=== PATIENT | female | born 1960 | race Caucasian/White ===

== ENCOUNTER → 2017-04-16 | Outpatient (CLI) | payer BC ==
--- NOTE | 2017-04-17 09:47 | MR ---
EXAMINATION TYPE: MR knee RT wo con DATE OF EXAM: 04/16/2017 6:23 PM COMPARISON: NONE HISTORY: Right Knee pain with swelling and some locking for approx 4 months TECHNIQUE: Multiplanar MultiSpin echo imaging of the right knee was performed. The graft FINDINGS: MEDIAL MENISCUS: There is oblique tear involving the posterior horn of the medial meniscus. Anterior horn appears to be intact. LATERAL MENISCUS: Anterior and posterior horns are intact without tear. CRUCIATE LIGAMENTS: The anterior and posterior cruciate ligaments are intact and unremarkable. COLLATERAL LIGAMENTS: The medial collateral ligament and lateral collateral ligament complex are intact and unremarkable. EXTENSOR MECHANISM: Visualized quadriceps and patellar tendons are intact. EFFUSION: No evidence for joint effusion. POPLITEAL CYST: No popliteal/jeter cyst. TRICOMPARTMENT SPACES: There is mild to moderate degenerative narrowing of the medial tibiofemoral marcell int space. There is a intercondylar spur formation seen as well as spurring about the margins of the femoral condyles and tibial plateau. Mild patellofemoral joint space narrowing. CARTILAGE: The articular cartilage is maintained without abnormal signal or full-thickness defect. BONE MARROW SIGNAL: No focal abnormal marrow signal is appreciated: OTHER: No additional significant abnormality is appreciated. IMPRESSION: 1. Posterior horn medial meniscal tear. 2. Changes of osteoarthritis.
== END | disposition home or self-care (01) ==
LOC: RADMRIMAIN 17:23
PROVIDERS: ATTEND Family Medicine
DX: S83.241A Other tear of medial meniscus, current injury, right knee, initial encounter (principal); M17.11 Unilateral primary osteoarthritis, right knee

== ENCOUNTER 2017-06-04 07:18 | Day surgery (SDC) | payer BC ==
[2017-05-28 08:53] VITALS: BMI 53.2
--- NOTE | 2017-06-03 11:44 | HP ---
CHIEF COMPLAINT: Right knee pain. 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 She is having medial pain that is worse with weightbearing activities. She notes intermittent locking and giving way. She has been taking antiinflammatories with minimal relief. PAST MEDICAL HISTORY: Significant for asthma and reflux disease along with hypertension. MEDICATIONS: Current medications: 1. Hydrochlorothiazide. 2. Prilosec. 3. Singulair. 4. Celebrex. She denies drug allergies. Surgical history is significant for previous wrist surgery and Caesarean section. Family history is significant for cancer. Social history is negative for current tobacco or alcohol use. 16 point review of systems is otherwise reviewed and is noncontributory. On examination, the patient is approximately 5 foot 5 inches, 320 pounds of endomorphic habitus. HEENT: Nonfocal. NECK: Supple. She has painless passive motion of her right hip. Straight leg raise is negative. On examination of her right knee, she has mild effusion. She is tender about the medial joint line. Active motion -6 to 100 degrees of flexion. Collaterals are stable. Rad's negative. Columba's elicits medial pain. She has genu valgum alignment. Her distal neurovascular exam appears to be intact in the right lower extremity. X-rays of the right knee obtained in the office to include weightbearing notch, lateral and merchant views show moderate lateral and patellofemoral compartment narrowing. MRI report from 04/16/2017 of the right knee shows a posterior horn medial meniscal tear. IMPRESSION: 1. Right knee internal derangement with symptomatic medial meniscal tear. 2. Right knee moderate lateral and patellofemoral compartment osteoarthrosis. 3. Increased body mass index. RECOMMENDATIONS: I talked to the patient at length regarding her treatment options. At this point, she is having significant pain and mechanical symptoms that will limit her normal function and activities. After thorough discussion, she opts to proceed with surgery. We will plan to proceed with arthroscopic evaluation with probable partial medial meniscectomy. Risks and benefits were discussed at length in layman's terms. We will likely perform that as an outpatient procedure. BRAD
[~2017-06-04 07:18] MED LIST: DEXAMETHASONE SOD PHOSPHATE 10 MG/ML 1 ML VIAL IV ONE; LACTATED RINGERS 1,000 ML IV SCH; ceFAZolin 3 GM in SODIUM CHLORIDE 0.9% 100 ML IVPB ONE
[2017-06-04] MEDS ORDERED: LIDOCAINE 1% 20 ML VIAL (10MG/ML) FOR IV START INTRADERMA ONE (08:00)
[2017-06-04] MEDS: ONDANSETRON 4 MG/2 ML VIAL IVP ONE ×2 (08:01→10:56)
[2017-06-04] MEDS ORDERED: SCOPOLAMINE 1.5MG/72HR PATCH TRANSDERM ONE (08:07)
[2017-06-04] MEDS ORDERED: PROPOFOL 10 MG/ML 20 ML VIAL IV ONE (08:59)
[2017-06-04] MEDS ORDERED: LIDOCAINE 1% INJ 10MG/ML (20 ML MDV) ONE (08:59)
[2017-06-04] MEDS ORDERED: fentaNYL (PF) 50 MCG/ML 2 ML AMP ONE (08:59)
[2017-06-04] MEDS ORDERED: SUCCINYLCHOLINE CHLORIDE VIAL 200 MG/10 ML VIAL IV ONE (08:59)
[2017-06-04] MEDS ORDERED: MIDAZOLAM 2 MG/2 ML VIAL ONE (08:59)
[2017-06-04] MEDS ORDERED: EPINEPHrine (PF) 1 ML in SODIUM CHLORIDE 0.9% IRRIGATIO 3,000 ML IRRIGATION ONE ×4 (09:25)
--- NOTE | 2017-06-04 10:05 | P.OP ---
Date of Procedure: 06/04/17 Preoperative Diagnosis: Right knee internal derangement Postoperative Diagnosis: Right knee posterior medial meniscal tear/middle one third lateral meniscal tear /grade 3 chondral injury distal lateral portion lateral femoral condyle/ reactive synovitis Procedure(s) Performed: Right knee arthroscopic partial medial meniscectomy/partial lateral meniscectomy /lateral femoral chondrectomy/partial synovectomy of the medial and lateral compartments Implants: Anesthesia: GETA Surgeon: Myles Herrera Estimated Blood Loss (ml): 10 Pathology: none sent Condition: stable Disposition: PACU Indications for Procedure: The patient is a 56-year-old female who presents with progressive right knee pain and mechanical symptoms despite conservative measures. A discussion of the risks and benefits of operative intervention versus continued conservative measures was made with the patient. She opted to proceed with surgery. Operative risks to include infection, neurovascular injury, development of blood clots, possible incomplete resolution of symptoms, possible worsening symptoms and need for subscap procedures was discussed. Informed consent was obtained. Operative Findings: As below Description of Procedure: The patient was brought to the operating room, and after induction of general anesthesia examined the right knee. Collaterals were stable, Rad was negative, and posterior drawer was negative. The right lower extremity was prepped and draped in a normal fashion. A superior lateral portal was made through a 3 mm skin incision superior and lateral to the patella. This was used for outflow. A lateral portal was made through a 5 mm vertical skin incision lateral to the patellar tendon above the joint. Diagnostic arthroscopy was performed. A medial portal was made through a similar incision medial to the patella tendon above the joint line. On inspection the medial compartment, she noted to have a large flap tear involving the posterior horn the medial meniscus in the white-red junction. This was debrided back to stable base with straight baskets and a motorized shaver. Grade 2-3 chondral changes were noted diffusely in the medial compartment. Reactive synovitis was debrided from the anterior medial and lateral compartments. On inspection the notch, the anterior cruciate ligament appeared to be intact. On inspection of the lateral compartment, there was a grade 3 chondral injury involving the distal lateral portion of the lateral femoral condyle. This was not amenable to repair. There is a loose chondral flap debrided back to stable base a motorized shaver. A corresponding oblique tear involving the middle one third of the lateral meniscus was noted. This was debrided back to stable base with straight baskets and a motorized shaver. The edges were contoured. On inspection patellofemoral articulation, there was chondral fibrillation and degenerative changes however no loose chondral fragment. The gutters were clear debris. The knee was then thoroughly irrigated. The portals were closed with Steri-Strips. A sterile dressing was applied in addition to a compression stocking. The patient was awoken from general anesthesia and transferred to recovery room in good condition. Blood loss less than 10 mL. No complications were incurred.
[2017-06-04 10:15] VITALS: TEMP 97
[2017-06-04] MEDS: HYDROmorphone 1 MG/ML 1 ML SYRINGE IVP PRN ×2 (10:17→10:22)
[2017-06-04 13:28] VITALS: RESP 18
[2017-06-04 14:34] VITALS: BP 130/66; PULSE 60
== END 2017-06-04 14:55 | disposition home or self-care (01) ==
LOC: OR 07:18
PROVIDERS: ATTEND Orthopaedic Surgery
DX: S83.241A Other tear of medial meniscus, current injury, right knee, initial encounter (principal); S83.281A Other tear of lateral meniscus, current injury, right knee, initial encounter; X58.XXXA Exposure to other specified factors, initial encounter; M65.861 Other synovitis and tenosynovitis, right lower leg; M23.91 Unspecified internal derangement of right knee; M17.11 Unilateral primary osteoarthritis, right knee; M25.461 Effusion, right knee; M54.5 Low back pain; G89.29 Other chronic pain; E66.01 Morbid (severe) obesity due to excess calories; R00.1 Bradycardia, unspecified; G47.33 Obstructive sleep apnea (adult) (pediatric); E78.5 Hyperlipidemia, unspecified; I10 Essential (primary) hypertension; J45.909 Unspecified asthma, uncomplicated; K21.9 Gastro-esophageal reflux disease without esophagitis; Z79.899 Other long term (current) drug therapy
CPT/HCPCS: 29880; J2250; J0330; J1100; J0690; J2405; J0171; J2001; J3010; J1170; J2704

== ENCOUNTER → 2018-01-18 | Outpatient (CLI) | payer BC ==
--- NOTE | 2018-01-18 15:46 | XR ---
EXAM TYPE: LUMBAR SPINE X RAY SERIES COMPARISON: NONE HISTORY: Lower back pain TECHNIQUE: 4 views are submitted. FINDINGS: Alignment is anatomic. The pedicles are intact. The transverse processes are intact. There is grad e 1 anterolisthesis L4 on L5. Surgical clips in the gallbladder fossa. There is a curvature the spin e with multilevel hypertrophic and degenerative disc disease. Multilevel facet arthropathy noted. Mos t marked findings at L5-S1. IMPRESSION: 1. Scoliotic curvature with multilevel moderate to severe degenerative disc disease. Consider MRI fol low-up. 2. There is a minimal anterolisthesis measuring approximately 2 mm of L4 on L5 likely secondary to se lamar facet arthropathy.
== END | disposition home or self-care (01) ==
LOC: RADXRMAIN 15:20
PROVIDERS: ATTEND Family Medicine
DX: M51.36 Other intervertebral disc degeneration, lumbar region (principal); M43.8X6 Other specified deforming dorsopathies, lumbar region; M43.16 Spondylolisthesis, lumbar region; M46.96 Unspecified inflammatory spondylopathy, lumbar region
CPT/HCPCS: 72110

== ENCOUNTER → 2019-08-19 | Outpatient (CLI) | payer BC ==
[2019-08-19 11:13] LABS: Basophils % (A) 1 %; Eosinophils # (A) 0.2 k/uL (0-0.7); Eosinophils % (A) 2 %; HCT 39.3 % (34.0-46.0); HGB 13.2 gm/dL (11.4-16.0); Lymphocytes % (A) 28 %; MCHC 33.6 g/dL (31.0-37.0); MCV 89.4 fL (80.0-100.0); Mean Platelet Volume 7.5; Monocytes # (A) 0.4 k/uL (0-1.0); Monocytes % (A) 5 %; Neutrophils # (A) 4.3 k/uL (1.3-7.7); Neutrophils % (A) 62 %; Platelet Count 196 k/uL (150-450); RBC 4.39 m/uL (3.80-5.40); RDW 14.7 % (11.5-15.5)
[2019-08-19 16:28] LABS: African American GFR (CKD) 111.5 (60.0-200.0); Albumin 4.2 g/dL (3.80-4.90); Albumin/Globulin Ratio 1.91 (1.60-3.17); Anion Gap 9.7 mmol/L (4.00-12.00); BUN/Creat Ratio 27.14 Ratio (12.00-20.00); Carbon Dioxide 28.3 mmol/L (21.6-31.8); Chol/HDL Ratio 2.61; Globulin 2.2 g/dL (1.6-3.3); LDL Cholesterol,Calculated 50.6 mg/dL (0.0-131.0); Magnesium 1.8 mg/dL (1.5-2.4); Non-African American GFR(CKD) 96.2 (60.0-200.0); Potassium 4.5 mmol/L (3.5-5.5); Total Bilirubin 0.6 mg/dL (0.3-1.2); Total Protein 6.4 g/dL (6.2-8.2); VLDL Calculation 20.4 mg/dL (5.00-40.00)
== END | disposition home or self-care (01) ==
LOC: LABWHC1 10:25
PROVIDERS: ATTEND Nurse Practitioner Adult Health
DX: Z00.00 Encounter for general adult medical examination without abnormal findings (principal); I10 Essential (primary) hypertension; E78.5 Hyperlipidemia, unspecified; R00.2 Palpitations
CPT/HCPCS: 36415; 80053; 80061; 83735; 84443; 84481; 85025

== ENCOUNTER → 2019-08-30 | Outpatient (CLI) | payer BC ==
--- NOTE | 2019-09-01 10:59 | MM ---
Reason for exam: screening (asymptomatic). Last mammogram was performed 1 year and 10 months ago. Physical Findings: A clinical breast exam by your physician is recommended on an annual basis and results should be correlated with mammographic findings. MG 3D Screening Mammo W/Cad Bilateral CC, MLO, and XCCL view(s) were taken. Prior study comparison: November 05, 2017, mammogram, performed at [facility]. September 03, 2016, mammogram, performed at [facility]. No significant changes when compared with prior studies. ASSESSMENT: Benign, BI-RAD 2 RECOMMENDATION: Routine screening mammogram of both breasts in 1 year.
== END | disposition home or self-care (01) ==
LOC: RADMAMWWP 16:37
PROVIDERS: ATTEND Family Medicine
DX: Z12.31 Encounter for screening mammogram for malignant neoplasm of breast (principal)
CPT/HCPCS: 77063; 77067

== ENCOUNTER → 2021-10-24 | Outpatient (CLI) | payer MEDICAID ==
[2021-10-24 09:03] LABS: Appearance,Urine Clear (Clear); Bilirubin,Urine Negative (Negative); Blood,Urine Negative (Negative); Color,Urine Colorless; Glucose,Urine (UA) Negative (Negative); Ketones,Urine Negative (Negative); Leukocyte Esterase,Urine Moderate (Negative); Nitrite,Urine Negative (Negative); Protein,Urine Negative (Negative); RBC,Urine 2 /hpf (0-5); Specific Gravity,Urine 1.002 (1.001-1.035); Squamous Epithelial Cell,Urine <1 /hpf (0-4); Urobilinogen,Urine <2.0 mg/dL (<2.0); WBC,Urine 3 /hpf (0-5)
[2021-10-24 11:01] LABS: Basophils # (A) 0.04 X 10*3/uL (0.00-0.10); Basophils % (A) 0.5 %; Eosinophils # (A) 0.19 X 10*3/uL (0.04-0.35); Eosinophils % (A) 2.4 %; HCT 37.8 % (37.2-46.3); HGB 12.7 g/dL (12.0-15.0); Lymphocytes # (A) 2.55 X 10*3/uL (0.90-5.00); Lymphocytes % (A) 31.7 %; MCH 30.1 pg (27.0-32.0); MCHC 33.6 g/dL (32.0-37.0); MCV 89.6 fL (80.0-97.0); Mean Platelet Volume 11.8 fL (9.5-12.2); Monocytes # (A) 0.77 X 10*3/uL (0.20-1.00); Monocytes % (A) 9.6 %; Neutrophils # (A) 4.45 X 10*3/uL (1.80-7.70); Neutrophils % (A) 55.2 %; Platelet Count 213 X 10*3/uL (140-440); RBC 4.22 X 10*6/uL (4.10-5.20); WBC 8.05 X 10*3/uL (4.50-10.00)
[2021-10-24 14:01] LABS: ALT 25 U/L (8-44); AST 20 U/L (13-35); African American GFR (CKD) 111.1 (60.0-200.0); Albumin 4.2 g/dL (3.8-4.9); Albumin/Globulin Ratio 1.61 (1.60-3.17); Alkaline Phosphatase 113 U/L (41-126); BUN/Creat Ratio 21.12 Ratio (12.00-20.00); Blood Urea Nitrogen 14.3 mg/dL (9.0-27.0); Calcium 9.3 mg/dL (8.7-10.3); Carbon Dioxide 27.6 mmol/L (20.0-27.5); Chloride 103 mmol/L (96-109); Creatine Kinase 45 U/L (26-186); Globulin 2.6 g/dL (1.6-3.3); Glucose 118 mg/dL (70-110); LDL Cholesterol,Calculated 47.6 mg/dL (0.0-131.0); Magnesium 2.1 mg/dL (1.5-2.4); Non-African American GFR(CKD) 95.9 (60.0-200.0); Potassium 4.2 mmol/L (3.5-5.5); Sodium 143 mmol/L (135-145); Total Protein 6.9 g/dL (6.2-8.2)
== END | disposition home or self-care (01) ==
LOC: LABWHC1 08:14
PROVIDERS: ATTEND Family Medicine
DX: I10 Essential (primary) hypertension (principal); I48.0 Paroxysmal atrial fibrillation; E78.2 Mixed hyperlipidemia; J45.998 Other asthma; M51.36 Other intervertebral disc degeneration, lumbar region
CPT/HCPCS: 36415; 80053; 80061; 81001; 82306; 82550; 82607; 83036; 83735; 84439; 84443; 85025

== ENCOUNTER → 2021-11-06 | Outpatient (CLI) | payer MEDICAID ==
--- NOTE | 2021-11-10 13:59 | MM ---
Reason for exam: screening (asymptomatic). Last mammogram was performed 2 years and 2 months ago. History: Patient is postmenopausal. Physical Findings: A clinical breast exam by your physician is recommended on an annual basis and results should be correlated with mammographic findings. MG 3D Screening Mammo W/Cad Bilateral CC and MLO view(s) were taken. Prior study comparison: August 30, 2019, bilateral MG 3d screening mammo w/cad. November 05, 2017, mammogram, performed at [facility]. There are scattered fibroglandular densities. There are benign appearing round calcifications bilaterally. There is no discrete abnormality. ASSESSMENT: Benign, BI-RAD 2 RECOMMENDATION: Routine screening mammogram of both breasts in 1 year.
== END | disposition home or self-care (01) ==
LOC: RADMAMWWP 12:51
PROVIDERS: ATTEND Obstetrics & Gynecology
DX: Z12.31 Encounter for screening mammogram for malignant neoplasm of breast (principal); Z78.0 Asymptomatic menopausal state
CPT/HCPCS: 77063; 77067

== ENCOUNTER 2022-01-07 06:01 | Inpatient (IN) | payer MEDICAID ==
[2022-01-07] MEDS ORDERED: ASPIRIN 81 MG PO STA (06:40)
--- NOTE | 2022-01-07 06:46 | ED ---
General Adult HPI - General Chief complaint: Chest Pain Stated complaint: Chest pain, high HR Time Seen by Provider: 01/07/22 06:40 Source: patient, RN notes reviewed, old records reviewed Mode of arrival: wheelchair - History of Present Illness Initial comments: 61-year-old female, alert and oriented 4, presents to the emergency room with complaints of waking at 3 AM with chest heaviness lasting about one hour. She states that the heaviness lasted one hour and is gone at this time. She did not get diaphoretic. She states that she did feel short of breath after walking up the stairs. No nausea vomiting or diarrhea. She has a history of palpitations and seen Dr. Lazo in the past. She has had multiple Holter monitors for palpitations with no definitive diagnosis. She does have a history of asthma and hypertension. No cardiac disease. -: hour(s) (3) Location: chest (Mid sternal) Radiation: non-radiation Severity scale (1-10): 0 Quality: other (Heaviness) Consistency: now resolved Associated Symptoms: denies other symptoms Treatments Prior to Arrival: none - Related Data Home Medications Medication Instructions Recorded Confirmed Celecoxib [CeleBREX] 200 mg PO DAILY 05/28/17 01/07/22 Montelukast [Singulair] 10 mg PO DAILY 05/28/17 01/07/22 Multivitamins, Thera [Multivitamin 1 tab PO DAILY 05/28/17 01/07/22 (formulary)] hydroCHLOROthiazide 25 mg PO DAILY 05/28/17 01/07/22 Ascorbic Acid [Vitamin C] 1,000 mg PO DAILY 01/07/22 01/07/22 Atorvastatin [Lipitor] 10 mg PO DAILY 01/07/22 01/07/22 Cholecalciferol [Vitamin D3 (25 25 mcg PO DAILY 01/07/22 01/07/22 Mcg = 1000 Iu)] Furosemide [Lasix] 20 mg PO DAILY PRN 01/07/22 01/07/22 Omeprazole 20 mg PO DAILY 01/07/22 01/07/22 Vitamin B Complex 1 cap PO DAILY 01/07/22 01/07/22 lisinopriL [Zestril] 5 mg PO DAILY 01/07/22 01/07/22 Allergies Allergy/AdvReac Type Severity Reaction Status Date / Time No Known Allergies Allergy Verified 01/07/22 09:11 Review of Systems ROS Statement: Those systems with pertinent positive or pertinent negative responses have been documented in the HPI. ROS Other: All systems not noted in ROS Statement are negative. Past Medical History Past Medical History: Asthma, GERD/Reflux, Hyperlipidemia, Hypertension, Osteoarthritis (OA), Sleep Apnea/CPAP/BIPAP Additional Past Medical History / Comment(s): "torn meniscus" History of Any Multi-Drug Resistant Organisms: None Reported Past Surgical History: Section, Cholecystectomy, Orthopedic Surgery, Uterine Ablation Additional Past Surgical History / Comment(s): rt wrist surgery with pin, colonoscopy. Past Anesthesia/Blood Transfusion Reactions: Postoperative Nausea & Vomiting (PONV) Past Psychological History: No Psychological Hx Reported Smoking Status: Never smoker Past Alcohol Use History: None Reported Past Drug Use History: None Reported - Past Family History Father Family Medical History: Cancer Additional Family Medical History / Comment(s): colon cancer General Exam Limitations: no limitations General appearance: alert Eye exam: Present: normal appearance Respiratory exam: Present: normal lung sounds bilaterally. Absent: respiratory distress, chest wall tenderness, accessory muscle use Cardiovascular Exam: Present: tachycardia (Atrial fibrillation with a rate of 150), irregular rhythm. Absent: JVD GI/Abdominal exam: Present: soft Extremities exam: Present: normal capillary refill, pedal edema (1+). Absent: tenderness Back exam: Present: normal inspection. Absent: tenderness, CVA tenderness (R), CVA tenderness (L), rash noted Neurological exam: Present: alert, oriented X3 Psychiatric exam: Present: normal affect, normal mood Skin exam: Present: warm, dry, normal color. Absent: cyanosis, diaphoretic Course Vital Signs 01/07/22 01/07/22 01/07/22 06:09 06:46 07:30 Temperature 97.4 F L Pulse Rate 100 115 H 128 H Respiratory 22 18 18 Rate Blood Pressure 108/75 109/71 115/94 O2 Sat by Pulse 98 96 97 Oximetry 01/07/22 09:25 Temperature Pulse Rate 90 Respiratory 18 Rate Blood Pressure 114/87 O2 Sat by Pulse 98 Oximetry - Reevaluation(s) Reevaluation #1: 01/07/22 07:57 Patient remained in atrial fibrillation with a rate between 97 and 128 on the Cardizem drip. Blood pressure is elevated to 128 systolic. She denies any chest pain or difficulty in breathing. Time: :57 Reevaluation #2: 01/07/22 08:14 Rate continues to also from 115 to 120 Time: 08:14 Reevaluation #3: 01/07/22 09:01 Troponin is elevated 0.094, case discussed with Dr. Blackman and patient will also be started on heparin. Time: 08:30 EKG Findings - EKG Results: EKG shows: atrial fibrillation (Ventricular rate of 115, QRS 0.95, QTC 0.366) Medical Decision Making - Medical Decision Making 61-year-old female presents with complaints chest heaviness lasting about one hour with shortness of breath. She has a history of palpitations and seen Dr. Lazo in the past. She does have a history of hypertension, asthma and high cholesterol. Patient denies any chest pain or shortness of breath at this time. EKG shows atrial fibrillation with rapid ventricular rate 150s. Patient was started on Cardizem and given Lovenox. Heart rate remains labile between 95 and 114 beats per minute minute on Cardizem gtt. Blood pressure is stable. Her troponin is 0.094, Cardiology was consulted and she was started on heparin drip. Case discussed with Dr. Blackman. Patient was admitted to the hospital for acute coronary syndrome and atrial fibrillation with rapid ventricular rate. Dr. Duran at bedside to assess patient. - Lab Data Result diagrams: 01/07/22 07:11 01/07/22 07:11 Lab Results 01/07/22 01/07/22 01/07/22 Range/Units 07:11 07:11 07:11 WBC 9.8 (3.8-10.6) k/uL RBC 4.80 (3.80-5.40) m/uL Hgb 15.2 (11.4-16.0) gm/dL Hct 44.1 (34.0-46.0) % MCV 91.7 (80.0-100.0) fL MCH 31.5 (25.0-35.0) pg MCHC 34.4 (31.0-37.0) g/dL RDW 14.7 (11.5-15.5) % Plt Count 221 (150-450) k/uL MPV 9.0 Neutrophils % 66 % Lymphocytes % 22 % Monocytes % 7 % Eosinophils % 2 % Basophils % 0 % Neutrophils # 6.5 (1.3-7.7) k/uL Lymphocytes # 2.2 (1.0-4.8) k/uL Monocytes # 0.7 (0-1.0) k/uL Eosinophils # 0.2 (0-0.7) k/uL Basophils # 0.0 (0-0.2) k/uL PT 9.9 (9.0-12.0) sec INR 0.9 (<1.2) APTT 22.0 (22.0-30.0) sec Sodium 141 (137-145) mmol/L Potassium 4.5 (3.5-5.1) mmol/L Chloride 105 (98-107) mmol/L Carbon Dioxide 30 (22-30) mmol/L Anion Gap 6 mmol/L BUN 15 (7-17) mg/dL Creatinine 0.79 (0.52-1.04) mg/dL Est GFR (CKD-EPI)AfAm >90 (>60 ml/min/1.73 sqM) Est GFR (CKD-EPI)NonAf 83 (>60 ml/min/1.73 sqM) Glucose 141 H (74-99) mg/dL Calcium 9.5 (8.4-10.2) mg/dL Magnesium 1.9 (1.6-2.3) mg/dL Total Bilirubin 0.8 (0.2-1.3) mg/dL AST 29 (14-36) U/L ALT 31 (4-34) U/L Alkaline Phosphatase 120 (38-126) U/L Troponin I (0.000-0.034) ng/mL Total Protein 7.4 (6.3-8.2) g/dL Albumin 4.1 (3.5-5.0) g/dL TSH (0.465-4.680) mIU/L Urine Color Urine Appearance (Clear) Urine pH (5.0-8.0) Ur Specific [place] (1.001-1.035) Urine Protein (Negative) Urine Glucose (UA) (Negative) Urine Ketones (Negative) Urine Blood (Negative) Urine Nitrite (Negative) Urine Bilirubin (Negative) Urine Urobilinogen (<2.0) mg/dL Ur Leukocyte Esterase (Negative) Urine RBC (0-5) /hpf Urine WBC (0-5) /hpf Ur Squamous Epith Cells (0-4) /hpf Urine Bacteria (None) /hpf Urine Mucus (None) /hpf Coronavirus (PCR) (Not Detectd) 01/07/22 01/07/22 01/07/22 Range/Units 07:11 07:11 07:11 WBC (3.8-10.6) k/uL RBC (3.80-5.40) m/uL Hgb (11.4-16.0) gm/dL Hct (34.0-46.0) % MCV (80.0-100.0) fL MCH (25.0-35.0) pg MCHC (31.0-37.0) g/dL RDW (11.5-15.5) % Plt Count (150-450) k/uL MPV Neutrophils % % Lymphocytes % % Monocytes % % Eosinophils % % Basophils % % Neutrophils # (1.3-7.7) k/uL Lymphocytes # (1.0-4.8) k/uL Monocytes # (0-1.0) k/uL Eosinophils # (0-0.7) k/uL Basophils # (0-0.2) k/uL PT (9.0-12.0) sec INR (<1.2) APTT (22.0-30.0) sec Sodium (137-145) mmol/L Potassium (3.5-5.1) mmol/L Chloride (98-107) mmol/L Carbon Dioxide (22-30) mmol/L Anion Gap mmol/L BUN (7-17) mg/dL Creatinine (0.52-1.04) mg/dL Est GFR (CKD-EPI)AfAm (>60 ml/min/1.73 sqM) Est GFR (CKD-EPI)NonAf (>60 ml/min/1.73 sqM) Glucose (74-99) mg/dL Calcium (8.4-10.2) mg/dL Magnesium (1.6-2.3) mg/dL Total Bilirubin (0.2-1.3) mg/dL AST (14-36) U/L ALT (4-34) U/L Alkaline Phosphatase (38-126) U/L Troponin I 0.094 H* (0.000-0.034) ng/mL Total Protein (6.3-8.2) g/dL Albumin (3.5-5.0) g/dL TSH 3.200 (0.465-4.680) mIU/L Urine Color Light Yellow Urine Appearance Clear (Clear) Urine pH 7.0 (5.0-8.0) Ur Specific [place] 1.011 (1.001-1.035) Urine Protein Negative (Negative) Urine Glucose (UA) Negative (Negative) Urine Ketones Negative (Negative) Urine Blood Negative (Negative) Urine Nitrite Negative (Negative) Urine Bilirubin Negative (Negative) Urine Urobilinogen <2.0 (<2.0) mg/dL Ur Leukocyte Esterase Large H (Negative) Urine RBC 3 (0-5) /hpf Urine WBC 27 H (0-5) /hpf Ur Squamous Epith Cells 2 (0-4) /hpf Urine Bacteria Rare H (None) /hpf Urine Mucus Rare H (None) /hpf Coronavirus (PCR) (Not Detectd) 01/07/22 Range/Units 07:23 WBC (3.8-10.6) k/uL RBC (3.80-5.40) m/uL Hgb (11.4-16.0) gm/dL Hct (34.0-46.0) % MCV (80.0-100.0) fL MCH (25.0-35.0) pg MCHC (31.0-37.0) g/dL RDW (11.5-15.5) % Plt Count (150-450) k/uL MPV Neutrophils % % Lymphocytes % % Monocytes % % Eosinophils % % Basophils % % Neutrophils # (1.3-7.7) k/uL Lymphocytes # (1.0-4.8) k/uL Monocytes # (0-1.0) k/uL Eosinophils # (0-0.7) k/uL Basophils # (0-0.2) k/uL PT (9.0-12.0) sec INR (<1.2) APTT (22.0-30.0) sec Sodium (137-145) mmol/L Potassium (3.5-5.1) mmol/L Chloride (98-107) mmol/L Carbon Dioxide (22-30) mmol/L Anion Gap mmol/L BUN (7-17) mg/dL Creatinine (0.52-1.04) mg/dL Est GFR (CKD-EPI)AfAm (>60 ml/min/1.73 sqM) Est GFR (CKD-EPI)NonAf (>60 ml/min/1.73 sqM) Glucose (74-99) mg/dL Calcium (8.4-10.2) mg/dL Magnesium (1.6-2.3) mg/dL Total Bilirubin (0.2-1.3) mg/dL AST (14-36) U/L ALT (4-34) U/L Alkaline Phosphatase (38-126) U/L Troponin I (0.000-0.034) ng/mL Total Protein (6.3-8.2) g/dL Albumin (3.5-5.0) g/dL TSH (0.465-4.680) mIU/L Urine Color Urine Appearance (Clear) Urine pH (5.0-8.0) Ur Specific [place] (1.001-1.035) Urine Protein (Negative) Urine Glucose (UA) (Negative) Urine Ketones (Negative) Urine Blood (Negative) Urine Nitrite (Negative) Urine Bilirubin (Negative) Urine Urobilinogen (<2.0) mg/dL Ur Leukocyte Esterase (Negative) Urine RBC (0-5) /hpf Urine WBC (0-5) /hpf Ur Squamous Epith Cells (0-4) /hpf Urine Bacteria (None) /hpf Urine Mucus (None) /hpf Coronavirus (PCR) Not Detected (Not Detectd) Critical Care Time Critical Care Time: Yes Total Critical Care Time: 32 Disposition Clinical Impression: Atrial fibrillation with RVR, ACS (acute coronary syndrome), Elevated troponin Disposition: ADMITTED IP TO THIS [facility] Decision Date: 01/07/22 Decision Time: 08:26
--- NOTE | 2022-01-07 06:54 | XR ---
EXAMINATION TYPE: XR chest 2V DATE OF EXAM: 01/07/2022 COMPARISON: NONE HISTORY: Chest pain TECHNIQUE: 2 views FINDINGS: Heart and mediastinum are normal. Lungs are clear. Diaphragm is normal. Bony thorax appears normal. IMPRESSION: Normal chest.
[2022-01-07] MEDS ORDERED: SODIUM CHLORIDE 0.9% 500 ML 500 ML IV ONE (06:57)
[2022-01-07] MEDS ORDERED: DILTIAZEM DRIP BOLUS FROM BAG 1 MG SOLN IV ONE ×3 (07:06→08:40)
[2022-01-07] MEDS ORDERED: ENOXAPARIN 150 MG/ML SYRINGE SQ STA (07:06)
[2022-01-07] MEDS: DILTIAZEM 125 MG in SODIUM CHLORIDE 0.9% 100 ML IV SCH ×2 (07:32→19:49)
[2022-01-07 07:49] LABS: Basophils % (A) 0 %; Eosinophils # (A) 0.2 k/uL (0-0.7); Eosinophils % (A) 2 %; HCT 44.1 % (34.0-46.0); HGB 15.2 gm/dL (11.4-16.0); Lymphocytes # (A) 2.2 k/uL (1.0-4.8); Lymphocytes % (A) 22 %; MCH 31.5 pg (25.0-35.0); MCHC 34.4 g/dL (31.0-37.0); MCV 91.7 fL (80.0-100.0); Monocytes # (A) 0.7 k/uL (0-1.0); Monocytes % (A) 7 %; Neutrophils # (A) 6.5 k/uL (1.3-7.7); Neutrophils % (A) 66 %; Platelet Count 221 k/uL (150-450); RDW 14.7 % (11.5-15.5); WBC 9.8 k/uL (3.8-10.6)
[2022-01-07 07:52] LABS: ALT 31 U/L (4-34); AST 29 U/L (14-36); African American GFR (CKD) >90 (>60 ml/min/1.73 sqM); Albumin 4.1 g/dL (3.5-5.0); Alkaline Phosphatase 120 U/L (38-126); Anion Gap 6 mmol/L; Blood Urea Nitrogen 15 mg/dL (7-17); Calcium 9.5 mg/dL (8.4-10.2); Carbon Dioxide 30 mmol/L (22-30); Chloride 105 mmol/L (98-107); Glucose 141 mg/dL (74-99); Magnesium 1.9 mg/dL (1.6-2.3); Non-African American GFR(CKD) 83 (>60 ml/min/1.73 sqM); Potassium 4.5 mmol/L (3.5-5.1); Sodium 141 mmol/L (137-145); Total Bilirubin 0.8 mg/dL (0.2-1.3); Total Protein 7.4 g/dL (6.3-8.2)
[2022-01-07 08:00] LABS: Appearance,Urine Clear (Clear); Bacteria,Urine Rare /hpf; Bilirubin,Urine Negative (Negative); Blood,Urine Negative (Negative); Color,Urine Light Yellow; Glucose,Urine (UA) Negative (Negative); Ketones,Urine Negative (Negative); Leukocyte Esterase,Urine Large (Negative); Mucus,Urine Rare /hpf; Nitrite,Urine Negative (Negative); Protein,Urine Negative (Negative); RBC,Urine 3 /hpf (0-5); Specific Gravity,Urine 1.011 (1.001-1.035); Squamous Epithelial Cell,Urine 2 /hpf (0-4); Urobilinogen,Urine <2.0 mg/dL (<2.0); WBC,Urine 27 /hpf (0-5)
[2022-01-07 08:03] LABS: INR 0.9 (<1.2); Prothrombin Time 9.9 sec (9.0-12.0)
[2022-01-07] MEDS ORDERED: DILTIAZEM 125 MG in SODIUM CHLORIDE 0.9% 100 ML IV SCH (08:15)
[2022-01-07] MEDS ORDERED: HEPARIN SODIUM 1,000 UN/ML (10ML VL) IV ONE (08:24)
[2022-01-07] MEDS ORDERED: HEPARIN SODIUM 1,000 UN/ML (10ML VL) IV PRN (08:24)
[2022-01-07] MEDS ORDERED: HYDROmorphone 0.5 MG/0.5 ML SYRINGE IVP PRN (08:26)
[2022-01-07] MEDS ORDERED: ACETAMINOPHEN TAB 325 MG TAB PO PRN (08:26)
[2022-01-07] MEDS ORDERED: NALOXONE 0.4 MG/ML 1 ML VIAL IV PRN ×2 (08:26→09:00)
[2022-01-07] MEDS: HEPARIN SOD,PORK IN 0.45% NACL 25,000 UNIT in 0.45% NACL 1 250ML.BAG IV SCH (09:21)
[2022-01-07] MEDS: METOPROLOL SUCCINATE (ER) 50 MG TAB.ER.24H PO SCH ×2 (09:23→19:48)
--- NOTE | 2022-01-07 11:08 | CONS ---
CONSULTATION This is a 61-year-old obese lady with a known history of hypertension and hypercholesterolemia. She came into the hospital with complaints of having tightness in the chest and also a sensation of rapid heartbeat. She woke up with these symptoms. She had this for about an hour and after arrival she was found to be in atrial fibrillation with a moderately rapid ventricular rate, required IV Cardizem, and she feels better at this time. Her discomfort in the chest has also improved. Troponin is mildly elevated, which is probably related to atrial fibrillation. She is resting comfortably without symptoms at the time of my evaluation. Past medical history is remarkable for hypertension, hypercholesterolemia, obstructive sleep apnea, wears a CPAP. She also has bronchial asthma. She used to see Dr. Lazo up until early last year, has not made a follow-up appointment or has not kept one. However, he has done multiple Holters in view of her palpitations, but she did not have any diagnosis of atrial fibrillation; this appears to be a new-onset documented atrial fibrillation. She is also status post cholecystectomy, orthopedic surgery, uterine ablation. ALLERGIES: NONE. Medications at home include omeprazole 20 mg daily, Lipitor 10 mg daily, hydrochlorothiazide and lisinopril 5 mg daily. PHYSICAL EXAMINATION: Blood pressure is 110/70, pulse rate is about 118, irregular. HEENT unremarkable. Fundus was not examined by me. Neck is supple. Could not appreciate JVD. Neck is short and thick. Heart exam reveals S1, S2 with irregularity, distant. heart sounds. Lungs are clear. Abdomen is soft, nontender. Lower extremities reveal bilateral trace edema, diminished pulses. Central nervous system grossly no focal deficits. EKG revealed atrial fibrillation, nonspecific ST-T changes, moderate ventricular rate. Chest x-ray did not reveal any significant abnormalities. Thyroid function test results are still pending. IMPRESSION: 1. New-onset atrial fibrillation, moderate ventricular rate. 2. Hypertension. 3. Hyperlipidemia. 4. Obesity. 5. Obstructive sleep apnea; wears a CPAP regularly. RECOMMENDATIONS: I will obtain additional troponin levels. We will continue IV heparin and check thyroid function tests. We will also start her on metoprolol tartrate 50 mg b.i.d. in addition to the Cardizem and IV heparin and obtain echocardiogram. Based on findings, will make further recommendations. Hopefully she will convert to sinus rhythm. She will follow up with Dr. Lazo upon discharge. Discussed my thoughts in detail with the patient and family. MMODL / IJN: [id number] /
[2022-01-07] MEDS ORDERED: FUROSEMIDE 20 MG TAB PO PRN (12:24)
--- NOTE | 2022-01-07 12:27 | P.HPIM ---
History of Present Illness H&P Date: 01/07/22 HISTORY OF PRESENT ILLNESS This is a 61-year-old female patient of Dr. Doty with past medical history of hypertension, hyperlipidemia, gastroesophageal reflux disease, mild intermittent asthma, generalized osteoarthritis, obstructive sleep apnea. Patient states that she developed chest heaviness or pressure around 3 AM in the upper mid chest area, nonradiating. Pain lasted for at least 1 hour. He denies any lightheadedness or dizziness, no visual changes. At the time of evaluation, patient denies having any chest pain. She follows with Dr. Lazo and had a Cardiolite stress test done in greater than 1 year ago which was reported as negative per the patient. Patient was found to be afebrile, heart rate 100 228, blood pressure 108/75, pulse ox 98% on room air. EKG was atrial fibrillation. CBC was unremarkable, electrolytes and renal function normal. Blood sugar 141. Troponin 0.094. TSH 3.2. Urinalysis revealed leukoesterase large, WBCs 27. Chinchilla virus PCR not detected. Chest x-ray reveals normal. Patient is seen today in the emergency center waiting for a bed on the cardiac stepdown unit. She has been seen by cardiology and patient has been started on IV heparin and Cardizem drip, echocardiogram has been ordered, patient started on metoprolol tartrate 50 mg twice daily. REVIEW OF SYSTEMS Constitutional: No fever, no chills, no night sweats. No weight change. No weakness, fatigue or lethargy. No daytime sleepiness. EENT: No headache. No blurred vision or double vision, no loss of vision. No loss of Hearing, no ringing in the ears, no dizziness. No nasal drainage or congestion. No epistaxis. No sore throat. Lungs: No shortness of breath, cough, no sputum production. No wheezing. Cardiovascular: Reported chest pain, no lower extremity edema. No palpitations. No paroxysmal nocturnal dyspnea. No orthopnea. No lightheadedness or dizziness. No syncopal episodes. Abdominal: No abdominal pain. No nausea, vomiting. No diarrhea. No constipation. No bloody or tarry stools. No loss of appetite. Genitourinary: No dysuria, increased frequency, urgency. No urinary retention. Musculoskeletal: No myalgias. No muscle weakness, no gait dysfunction, no frequent falls. No back pain. No neck pain. Integumentary: No wounds, no lesions. No rash or pruritus. No unusual bruising. No change in hair or nails. Neurologic: No aphasia. No facial droop. No change in mentation. No head injury. No headache. No paralysis. No paresthesia. Psychiatric: No depression. No anxiety. No mood swings. Endocrine: No abnormal blood sugars. No weight change. No excessive sweating or thirst. No cold intolerance. SOCIAL HISTORY Patient is a lifelong nonsmoker, and rare alcohol use, no illicit drug use. FAMILY HISTORY Father from colon cancer. Mother from COPD with history of MIs and CHF. Patient has one sister that during a motor vehicle accident. One sister living with history of hypertension and a problem with her liver that is being monitored, one sister with glioblastoma atrial fibrillation and osteoarthritis. Patient has one brother that from cancer is known to have throat cancer and from pancreatic cancer. Patient has one brother that does not go to a physician. She has one son and one daughter with no major medical problems. PHYSICAL EXAMINATION Gen: This is a 61-year-old morbidly obese female. Patient is resting on the ER stretcher and appears to be comfortable and in no acute distress. HEENT: Head is atraumatic, normocephalic. Pupils equal, round. Sclerae is a nicteric. NECK: Supple. No JVD. No lymphadenopathy. No thyromegaly. LUNGS: Clear to auscultation. No wheezes or rhonchi. No intercostal retractions. HEART: Irregular rate and rhythm. No murmur. ABDOMEN: Soft. Bowel sounds are present. No masses. No tenderness. EXTREMITIES: No pedal edema. No calf tenderness. NEUROLOGICAL: Patient is awake, alert and oriented x3. Cranial nerves 2 through 12 are grossly intact. ASSESSMENT AND PLAN 1. New onset atrial fibrillation, paroxysmal atrial fibrillation. Patient is on Cardizem drip and heparin drip to be transitioned to Toprol-XL 50 mg twice daily. 2. Hypertension. Metoprolol, patient resumed on lisinopril 5 mg daily, hydrochlorothiazide 25 mg daily 3. Hyperlipidemia. Continue atorvastatin 10 mg daily. 4. Gastroesophageal reflux disease and GI prophylaxis. Continue omeprazole 20 mg daily. 5. Mild intermittent asthma. Continue Singulair 10 mg daily. 6. Generalized osteoarthritis stable. 7. Obstructive sleep apnea. 8. DVT prophylaxis. Heparin drip. Patient will be admitted to the hospital for a minimum of 2 night stay. DISCHARGE PLAN . Impression and plan of care have been directed as dictated by the signing physician. Ann Murillo nurse practitioner acting as scribe for signing physician. Past Medical History Past Medical History: Asthma, GERD/Reflux, Hyperlipidemia, Hypertension, Osteoarthritis (OA), Sleep Apnea/CPAP/BIPAP Additional Past Medical History / Comment(s): "torn meniscus" History of Any Multi-Drug Resistant Organisms: None Reported Past Surgical History: Section, Cholecystectomy, Orthopedic Surgery, Uterine Ablation Additional Past Surgical History / Comment(s): rt wrist surgery with pin, colonoscopy. Past Anesthesia/Blood Transfusion Reactions: Postoperative Nausea & Vomiting (PONV) Past Psychological History: No Psychological Hx Reported Smoking Status: Never smoker Past Alcohol Use History: None Reported Past Drug Use History: None Reported - Past Family History Father Family Medical History: Cancer Additional Family Medical History / Comment(s): colon cancer Medications and Allergies Home Medications Medication Instructions Recorded Confirmed Type Celecoxib [CeleBREX] 200 mg PO DAILY 05/28/17 01/07/22 History Montelukast [Singulair] 10 mg PO DAILY 05/28/17 01/07/22 History Multivitamins, Thera [Multivitamin 1 tab PO DAILY 05/28/17 01/07/22 History (formulary)] hydroCHLOROthiazide 25 mg PO DAILY 05/28/17 01/07/22 History Ascorbic Acid [Vitamin C] 1,000 mg PO DAILY 01/07/22 01/07/22 History Atorvastatin [Lipitor] 10 mg PO DAILY 01/07/22 01/07/22 History Cholecalciferol [Vitamin D3 (25 25 mcg PO DAILY 01/07/22 01/07/22 History Mcg = 1000 Iu)] Furosemide [Lasix] 20 mg PO DAILY PRN 01/07/22 01/07/22 History Omeprazole 20 mg PO DAILY 01/07/22 01/07/22 History Vitamin B Complex 1 cap PO DAILY 01/07/22 01/07/22 History lisinopriL [Zestril] 5 mg PO DAILY 01/07/22 01/07/22 History Allergies Allergy/AdvReac Type Severity Reaction Status Date / Time No Known Allergies Allergy Verified 01/07/22 09:11 Physical Exam Vitals: Vital Signs Temp Pulse Resp BP Pulse Ox 01/07/22 07:30 128 H 18 115/94 97 01/07/22 06:46 115 H 18 109/71 96 01/07/22 06:09 97.4 F L 100 22 108/75 98 Intake and Output 01/06/22 01/07/22 01/07/22 22:59 06:59 14:59 Intake Total 5.583 Balance 5.583 Intake: Intake, IV Titration 5.583 Amount Diltiazem 125 mg In 5.583 Sodium Chloride 0.9% 100 ml @ 10 MG/HR 10 mls/hr IV .[id number] [facility] Rx#: [id number] Other: Weight 148.325 kg Results CBC & Chem 7: 01/07/22 07:11 01/07/22 07:11 Labs: Abnormal Lab Results - Last 24 Hours (Table) 01/07/22 01/07/22 01/07/22 Range/Units 07:11 07:11 07:11 Glucose 141 H (74-99) mg/dL Troponin I 0.094 H* (0.000-0.034) ng/mL Ur Leukocyte Esterase Large H (Negative) Urine WBC 27 H (0-5) /hpf Urine Bacteria Rare H (None) /hpf Urine Mucus Rare H (None) /hpf
--- NOTE | 2022-01-07 12:35 | ECHOF ---
Referral Reason:ACS, afib with RVR MEASUREMENTS -------- HEIGHT: 165.1 cm WEIGHT: 148.3 kg BP: RVIDd: 4.0 cm (< 3.3) IVSd: 1.2 cm (0.6 - 1.1) LVIDd: 5.2 cm (3.9 - 5.3) LVPWd: 1.4 cm (0.6 - 1.1) IVSs: 1.5 cm LVIDs: 3.9 cm LVPWs: 1.6 cm Ao Diam: 2.7 cm (2.0 - 3.7) FINDINGS -------- Atrial fibrillation. This was a technically difficult study with suboptimal views. Morbid Obesity This was a techncall y difficult study with suboptimal views, , Lumason utilized for enhancement of images. The left ventricular size is normal. There is mild concentric left ventricular hypertrophy. Overa ll left ventricular systolic function is low-normal with, an EF between 50 - 55 %. The right ventricle is moderately enlarged. The left atrium was not well visualized. The right atrium was not well visualized. The aortic valve was not well visualized. The mitral valve was not well visualized. Mild mitral regurgitation is present. The tricuspid valve was not well visualized. The pulmonic valve was not well visualized. The aortic root size is normal. Echo free space represents a pericardial fat pad. CONCLUSIONS -------- 1. Morbid Obesity 2. This was a techncally difficult study with suboptimal views, , Lumason utilized for enhancement of images. 3. There is mild concentric left ventricular hypertrophy. 4. Overall left ventricular systolic function is low-normal with, an EF between 50 - 55 %. 5. The right ventricle is moderately enlarged. 6. Mild mitral regurgitation is present. 7. Echo free space represents a pericardial fat pad. DETECTIVE PRECINCT: Jada Kelly RDCS
[2022-01-07] MEDS: lisinopriL 5 MG TAB PO SCH (18:14)
[2022-01-07] MEDS: SODIUM CHLORIDE 0.9% 1,000 ML IV SCH ×2 (18:14→19:48)
[2022-01-08] MEDS: SODIUM CHLORIDE 0.9% 1,000 ML IV SCH (03:28)
[2022-01-08] MEDS: HEPARIN SOD,PORK IN 0.45% NACL 25,000 UNIT in 0.45% NACL 1 250ML.BAG IV SCH (03:28)
[2022-01-08 05:55] LABS: Basophils # (A) 0.1 k/uL (0-0.2); Basophils % (A) 1 %; Eosinophils # (A) 0.2 k/uL (0-0.7); Eosinophils % (A) 3 %; HCT 40.8 % (34.0-46.0); HGB 13.6 gm/dL (11.4-16.0); Lymphocytes # (A) 2.4 k/uL (1.0-4.8); Lymphocytes % (A) 29 %; MCH 30.9 pg (25.0-35.0); MCHC 33.3 g/dL (31.0-37.0); MCV 92.8 fL (80.0-100.0); Mean Platelet Volume 9.1; Monocytes # (A) 0.6 k/uL (0-1.0); Monocytes % (A) 8 %; Neutrophils # (A) 4.9 k/uL (1.3-7.7); Neutrophils % (A) 58 %; Platelet Count 184 k/uL (150-450); RBC 4.39 m/uL (3.80-5.40); RDW 14.3 % (11.5-15.5); WBC 8.4 k/uL (3.8-10.6)
[2022-01-08 06:06] LABS: Prothrombin Time 10.9 sec (9.0-12.0)
[2022-01-08 06:20] LABS: Partial Thromboplastin Time 45.8 sec (22.0-30.0)
[2022-01-08] MEDS: DILTIAZEM 125 MG in SODIUM CHLORIDE 0.9% 100 ML IV SCH (06:23)
[2022-01-08] MEDS: MONTELUKAST 10 MG TAB PO SCH (09:03)
[2022-01-08] MEDS: lisinopriL 5 MG TAB PO SCH (09:03)
[2022-01-08] MEDS: hydroCHLOROthiazide 25 MG TAB PO SCH (09:03)
[2022-01-08] MEDS: PANTOPRAZOLE 40 MG TABLET PO SCH (09:03)
[2022-01-08] MEDS: METOPROLOL SUCCINATE (ER) 50 MG TAB.ER.24H PO SCH (09:03)
[2022-01-08] MEDS: ATORVASTATIN 10 MG TAB PO SCH (09:03)
[2022-01-08 09:59] LABS: African American GFR (CKD) >90 (>60 ml/min/1.73 sqM); Anion Gap 5 mmol/L; Blood Urea Nitrogen 15 mg/dL (7-17); Calcium 8.8 mg/dL (8.4-10.2); Carbon Dioxide 28 mmol/L (22-30); Chloride 106 mmol/L (98-107); Glucose 123 mg/dL (74-99); Non-African American GFR(CKD) 88 (>60 ml/min/1.73 sqM); Potassium 3.9 mmol/L (3.5-5.1); Sodium 139 mmol/L (137-145)
[2022-01-08] MEDS: APIXABAN 5 MG TAB PO SCH ×2 (10:23→21:21)
--- NOTE | 2022-01-08 10:27 | PN ---
PROGRESS NOTE Mrs. Wilburn was admitted yesterday with atrial fib, moderately rapid ventricular rate. I placed on a Cardizem drip and metoprolol. Her heart rate seems to have come down. She had pauses of about 2.2 seconds. I will stop the Cardizem drip and decrease the metoprolol to 25 mg t.i.d. starting tomorrow and see how she does. She already received metoprolol succinate 50 mg this morning. She also complained of some dizziness and lightheadedness, but she feels well. Blood pressure is good. Her initial troponin was unremarkable. Vitals are stable. No JVD. S1-S2 heard normally. Short systolic murmur noted. Irregular rhythm noted. Lungs reveal decent air entry. Abdomen and lower extremities exam unchanged. We will keep her until tomorrow, initiate her on Eliquis and stop intravenous heparin. Her initial troponin was elevated, but I think this is related mostly to her atrial fibrillation. We will do a stress test also as an outpatient down the road after her atrial fibrillation issue is settled. MMARIANL / IJN: [id number] /
--- NOTE | 2022-01-08 12:05 | P.PN ---
Subjective Progress Note Date: 01/08/22 HISTORY OF PRESENT ILLNESS This is a 61-year-old female patient of Dr. Doty with past medical history of hypertension, hyperlipidemia, gastroesophageal reflux disease, mild intermittent asthma, generalized osteoarthritis, obstructive sleep apnea. Patient states that she developed chest heaviness or pressure around 3 AM in the upper mid chest area, nonradiating. Pain lasted for at least 1 hour. He denies any lightheadedness or dizziness, no visual changes. At the time of evaluation, patient denies having any chest pain. She follows with Dr. Lazo and had a Cardiolite stress test done in greater than 1 year ago which was reported as negative per the patient. Patient was found to be afebrile, heart rate 100 228, blood pressure 108/75, pulse ox 98% on room air. EKG was atrial fibrillation. CBC was unremarkable, electrolytes and renal function normal. Blood sugar 141. Troponin 0.094. TSH 3.2. Urinalysis revealed leukoesterase large, WBCs 27. Chinchilla virus PCR not detected. Chest x-ray reveals normal. Patient is seen today in the emergency center waiting for a bed on the cardiac stepdown unit. She has been seen by cardiology and patient has been started on IV heparin and Cardizem drip, echocardiogram has been ordered, patient started on metoprolol tartrate 50 mg twice daily. 01/08: Patient has been seen by automotive wholesale parts advisor this morning, Cardizem drip was discontinued, and heparin drip as been discontinued transitioned to eliquis. Patient was switched from metoprolol succinate to prolong tartrate at 25 mg 3 times daily starting tomorrow and would like to monitor her overnight. Plan is for outpatient stress testing down the road once atrial fibrillation is controlled. Patient remains in atrial fibrillation but did have pauses of 2.2 seconds. Heart rate is in this 60 mL, blood pressure 105/62, pulse ox 96% on room air. Repeat lab work remains CBC normal, INR 1. Electrolytes and renal function normal. Blood sugar 123.. Echocardiogram reveals EF of 50-55%, mild mitral regurgitation. REVIEW OF SYSTEMS Constitutional: No fever, no chills, no night sweats. No weight change. No weakness, fatigue or lethargy. No daytime sleepiness. EENT: No headache. No blurred vision or double vision, no loss of vision. No loss of Hearing, no ringing in the ears, no dizziness. No nasal drainage or congestion. No epistaxis. No sore throat. Lungs: No shortness of breath, cough, no sputum production. No wheezing. Cardiovascular: Reported chest pain, no lower extremity edema. No palpitations. No paroxysmal nocturnal dyspnea. No orthopnea. No lightheadedness or dizziness. No syncopal episodes. Abdominal: No abdominal pain. No nausea, vomiting. No diarrhea. No constipation. No bloody or tarry stools. No loss of appetite. Genitourinary: No dysuria, increased frequency, urgency. No urinary retention. Musculoskeletal: No myalgias. No muscle weakness, no gait dysfunction, no frequent falls. No back pain. No neck pain. Integumentary: No wounds, no lesions. No rash or pruritus. No unusual bruising. No change in hair or nails. Neurologic: No aphasia. No facial droop. No change in mentation. No head injury. No headache. No paralysis. No paresthesia. Psychiatric: No depression. No anxiety. No mood swings. Endocrine: No abnormal blood sugars. No weight change. No excessive sweating or thirst. No cold intolerance. PHYSICAL EXAMINATION Gen: This is a 61-year-old morbidly obese female. Patient is resting on the ER stretcher and appears to be comfortable and in no acute distress. HEENT: Head is atraumatic, normocephalic. Pupils equal, round. Sclerae is an icteric. NECK: Supple. No JVD. No lymphadenopathy. No thyromegaly. LUNGS: Clear to auscultation. No wheezes or rhonchi. No intercostal retractions. HEART: Irregular rate and rhythm. No murmur. ABDOMEN: Soft. Bowel sounds are present. No masses. No tenderness. EXTREMITIES: No pedal edema. No calf tenderness. NEUROLOGICAL: Patient is awake, alert and oriented x3. Cranial nerves 2 through 12 are grossly intact. ASSESSMENT AND PLAN 1. New onset atrial fibrillation, paroxysmal atrial fibrillation. Patient transitioned to eliquis and Lopressor per cardiology. Cardiology consult appreciated.. 2. Hypertension. Metoprolol, patient resumed on lisinopril 5 mg daily, hydrochlorothiazide 25 mg daily 3. Hyperlipidemia. Continue atorvastatin 10 mg daily. 4. Gastroesophageal reflux disease and GI prophylaxis. Continue omeprazole 20 mg daily. 5. Mild intermittent asthma. Continue Singulair 10 mg daily. 6. Generalized osteoarthritis stable. 7. Obstructive sleep apnea. 8. DVT prophylaxis. Heparin drip. DISCHARGE PLAN Home Wednesday. Impression and plan of care have been directed as dictated by the signing physician. Ann Murillo nurse practitioner acting as scribe for signing physician. Objective - Vital Signs Vital signs: Vital Signs Temp 97.8 F 01/08/22 08:10 Pulse 73 01/08/22 08:10 Resp 17 01/08/22 08:10 BP 105/62 01/08/22 08:10 Pulse Ox 96 01/08/22 08:10 Intake & Output 01/07/22 01/08/22 01/08/22 18:59 06:59 18:59 Intake Total 5.583 558.856 340 Balance 5.583 558.856 340 Weight 148.325 kg Intake: Intake, IV Titration 5.583 318.856 Amount Diltiazem 125 mg In 5.583 119.417 Sodium Chloride 0.9% 100 ml @ 10 MG/HR 10 mls/hr IV .[id number] [facility] Rx#: [id number] Heparin Sod,Pork in 0.45% 199.439 NaCl 25,000 unit In 0.45 % NaCl 1 250ml.bag @ 6.8 UNITS/KG/HR 10.086 mls/hr IV .Q24H [facility] Rx#: [id number] Oral 240 340 Other: Voiding Method Toilet # Voids 1 - Labs CBC & Chem 7: 01/08/22 05:10 01/08/22 09:16 Labs: Abnormal Lab Results - Last 24 Hours (Table) 01/07/22 01/07/22 01/08/22 Range/Units 14:39 20:32 05:10 APTT 41.5 H 36.0 H 45.8 H (22.0-30.0) sec Microbiology - Last 24 Hours (Table) 01/07/22 07:11 Urine Culture - Preliminary Urine,Clean Catch
[2022-01-08] MEDS: CEPHALEXIN 500 MG CAP PO SCH ×3 (14:49→21:21)
[2022-01-09] MEDS: SODIUM CHLORIDE 0.9% 1,000 ML IV SCH (01:52)
[2022-01-09] MEDS: PANTOPRAZOLE 40 MG TABLET PO SCH (08:56)
[2022-01-09] MEDS: ATORVASTATIN 10 MG TAB PO SCH (08:56)
[2022-01-09] MEDS: lisinopriL 5 MG TAB PO SCH (08:56)
[2022-01-09] MEDS: hydroCHLOROthiazide 25 MG TAB PO SCH (08:56)
[2022-01-09] MEDS: APIXABAN 5 MG TAB PO SCH (08:56)
[2022-01-09] MEDS: CEPHALEXIN 500 MG CAP PO SCH (08:56)
[2022-01-09] MEDS: MONTELUKAST 10 MG TAB PO SCH (08:56)
[2022-01-09 08:59] VITALS: RESP 16; TEMP 97.9
[2022-01-09] MEDS ORDERED: METOPROLOL TARTRATE 25 MG TAB PO SCH (09:00)
--- NOTE | 2022-01-09 12:23 | P.DS ---
Providers Date of admission: 01/07/22 08:48 Expected date of discharge: 01/09/22 Attending physician: Shi Doty Consults: 01/07/22 08:30 Consult Physician Routine Consulting Provider: Gloria Duran Consult Reason/Comments: afib with rvr, elevated trop, ACS Do you want consulting provider notified?: Already Contacted Primary care physician: Shi Doty [facility] Course: HISTORY OF PRESENT ILLNESS This is a 61-year-old female patient of Dr. Doty with past medical history of hypertension, hyperlipidemia, gastroesophageal reflux disease, mild intermittent asthma, generalized osteoarthritis, obstructive sleep apnea. Patient states that she developed chest heaviness or pressure around 3 AM in the upper mid chest area, nonradiating. Pain lasted for at least 1 hour. He denies any lightheadedness or dizziness, no visual changes. At the time of evaluation, patient denies having any chest pain. She follows with Dr. Lazo and had a Cardiolite stress test done in greater than 1 year ago which was reported as negative per the patient. Patient was found to be afebrile, heart rate 100 228, blood pressure 108/75, pulse ox 98% on room air. EKG was atrial fibrillation. CBC was unremarkable, electrolytes and renal function normal. Blood sugar 141. Troponin 0.094. TSH 3.2. Urinalysis revealed leukoesterase large, WBCs 27. Chinchilla virus PCR not detected. Chest x-ray reveals normal. Patient is seen today in the emergency center waiting for a bed on the cardiac stepdown unit. She has been seen by cardiology and patient has been started on IV heparin and Cardizem drip, echocardiogram has been ordered, patient started on metoprolol tartrate 50 mg twice daily. 01/08: Patient has been seen by registered dental assistant this morning, Cardizem drip was discontinued, and heparin drip as been discontinued transitioned to eliquis. Patient was switched from metoprolol succinate to prolong tartrate at 25 mg 3 times daily starting tomorrow and would like to monitor her overnight. Plan is for outpatient stress testing down the road once atrial fibrillation is controlled. Patient remains in atrial fibrillation but did have pauses of 2.2 seconds. Heart rate is in this 60 mL, blood pressure 105/62, pulse ox 96% on room air. Repeat lab work remains CBC normal, INR 1. Electrolytes and renal function normal. Blood sugar 123.. Echocardiogram reveals EF of 50-55%, mild mitral regurgitation. 01/09: Patient states that during the night she was up to the bathroom and her heart rate jumped up to 150. Noted that patient is starting to pull all tartrate this morning and first dose will be given early. Cardiology has evaluated the patient today and cleared for discharge. Recommendations to be off work until follow-up with Dr. Lazo. Patient will be discharged home today in stable condition. DISCHARGE DIAGNOSES 1. New onset atrial fibrillation, paroxysmal atrial fibrillation. 2. Hypertension. 3. Hyperlipidemia. 4. Gastroesophageal reflux disease. 5. Mild intermittent asthma. 6. Generalized osteoarthritis stable. 7. Obstructive sleep apnea. DISCHARGE PLAN Home Greater than 35 minutes was utilized and coordinating patient's discharge. Impression and plan of care have been directed as dictated by the signing physician. Ann Murillo nurse practitioner acting as scribe for signing physician. Plan - Discharge Summary Discharge Rx Participant: Yes New Discharge Prescriptions: New Apixaban [Eliquis] 5 mg PO BID #60 tab Cephalexin [Keflex] 500 mg PO TID #15 cap Metoprolol Tartrate [Lopressor] 25 mg PO TID #90 tab Continue Multivitamins, Thera [Multivitamin (formulary)] 1 tab PO DAILY Celecoxib [CeleBREX] 200 mg PO DAILY Montelukast [Singulair] 10 mg PO DAILY hydroCHLOROthiazide 25 mg PO DAILY lisinopriL [Zestril] 5 mg PO DAILY Atorvastatin [Lipitor] 10 mg PO DAILY Vitamin B Complex 1 cap PO DAILY Ascorbic Acid [Vitamin C] 1,000 mg PO DAILY Cholecalciferol [Vitamin D3 (25 Mcg = 1000 Iu)] 25 mcg PO DAILY Omeprazole 20 mg PO DAILY Furosemide [Lasix] 20 mg PO DAILY PRN PRN Reason: SWELLING Discharge Medication List Celecoxib [CeleBREX] 200 mg PO DAILY 05/28/17 [History] Montelukast [Singulair] 10 mg PO DAILY 05/28/17 [History] Multivitamins, Thera [Multivitamin (formulary)] 1 tab PO DAILY 05/28/17 [History] hydroCHLOROthiazide 25 mg PO DAILY 05/28/17 [History] Ascorbic Acid [Vitamin C] 1,000 mg PO DAILY 01/07/22 [History] Atorvastatin [Lipitor] 10 mg PO DAILY 01/07/22 [History] Cholecalciferol [Vitamin D3 (25 Mcg = 1000 Iu)] 25 mcg PO DAILY 01/07/22 [History] Furosemide [Lasix] 20 mg PO DAILY PRN 01/07/22 [History] Omeprazole 20 mg PO DAILY 01/07/22 [History] Vitamin B Complex 1 cap PO DAILY 01/07/22 [History] lisinopriL [Zestril] 5 mg PO DAILY 01/07/22 [History] Apixaban [Eliquis] 5 mg PO BID #60 tab 01/08/22 [Rx] Cephalexin [Keflex] 500 mg PO TID #15 cap 01/09/22 [Rx] Metoprolol Tartrate [Lopressor] 25 mg PO TID #90 tab 01/09/22 [Rx] Follow up Appointment(s)/Referral(s): Davion Lazo MD [STAFF PHYSICIAN] - 1 Week Shi Doty MD [Primary Care Provider] - 1 Week Activity/Diet/Wound Care/Special Instructions: Patient to be off work until follow up with Dr. Lazo. Discharge Disposition: HOME SELF-CARE
--- NOTE | 2022-01-09 13:06 | PN ---
PROGRESS NOTE Mrs. Wilburn remains in atrial fibrillation. Rate is between 70 and 90 at rest. When she is active, it goes up to 110. However, no further episodes of bradycardia. She is on 25 mg t.i.d. of metoprolol, adequately anticoagulated. I am suggesting that rate control is optimal. She can be discharged and see Dr. Lazo in one week. She may have some underlying sick sinus syndrome as well. She will require electrical cardioversion after 4 weeks of anticoagulation. She has obstructive sleep apnea, hypertension and hyperlipidemia. She is doing well. Vitals are stable. JVD 1 cm. No carotid bruit. S1-S2 heard normally. Regular rhythm noted. No significant murmurs. Lungs reveal decent air entry. Abdomen is soft, nontender. Lower extremities reveal palpable pulses. Central nervous system grossly within normal limits. IMPRESSION: 1. New-onset atrial fibrillation with better rate control and adequately anticoagulated. 2. Hypertension. 3. Hyperlipidemia. 4. Obstructive sleep apnea; wears CPAP faithfully. RECOMMENDATIONS: Same medical regimen. Okay for discharge. Advised not to do any strenuous activities and to see Dr. Lazo in one week. I discussed with the patient and also spoke to Dr. Lazo. MMODL / IJN: [id number] /
[2022-01-09 14:03] VITALS: BP 108/74; PULSE 91
== END 2022-01-09 13:19 | disposition home or self-care (01) | DRG 309 ==
LOC: EC 06:01 → 3SCARD 08:48
PROVIDERS: ADMIT Family Medicine; ATTEND Family Medicine
DX: I48.0 Paroxysmal atrial fibrillation (principal); Z68.43 Body mass index [BMI] 50.0-59.9, adult; E66.9 Obesity, unspecified; E78.00 Pure hypercholesterolemia, unspecified; G47.33 Obstructive sleep apnea (adult) (pediatric); I10 Essential (primary) hypertension; J45.20 Mild intermittent asthma, uncomplicated; K21.9 Gastro-esophageal reflux disease without esophagitis; Z20.822 Contact with and (suspected) exposure to COVID-19; M15.9 Polyosteoarthritis, unspecified; Z79.1 Long term (current) use of non-steroidal anti-inflammatories (NSAID); Z79.899 Other long term (current) drug therapy; Z80.0 Family history of malignant neoplasm of digestive organs; Z80.8 Family history of malignant neoplasm of other organs or systems; Z82.49 Family history of ischemic heart disease and other diseases of the circulatory system; Z82.5 Family history of asthma and other chronic lower respiratory diseases; Z90.49 Acquired absence of other specified parts of digestive tract
CPT/HCPCS: 36415; 71046; 80048; 80053; 81001; 83735; 84443; 84484; 85025; 85610; 85730; 87086; 87635; 93005; 93306; 96361; 96374; 99291

== ENCOUNTER → 2022-03-04 | Outpatient (CLI) | payer MEDICAID ==
[2022-03-04 19:06] LABS: HCT 36.4 % (37.2-46.3); HGB 11.7 g/dL (12.0-15.0); MCH 29.8 pg (27.0-32.0); MCHC 32.1 g/dL (32.0-37.0); MCV 92.6 fL (80.0-97.0); Mean Platelet Volume 11.9 fL (9.5-12.2); NRBC Per 100 WBC 0 /100 WBCS (0.0-0.0); Platelet Count 192 X 10*3/uL (140-440); RBC 3.93 X 10*6/uL (4.10-5.20); RDW 14.1 % (11.5-14.5); WBC 8.32 X 10*3/uL (4.50-10.00)
[2022-03-04 19:10] LABS: African American GFR (CKD) 93.5 (60.0-200.0); Anion Gap 8.6 mmol/L (10.00-18.00); Blood Urea Nitrogen 15.2 mg/dL (9.0-27.0); Carbon Dioxide 28.4 mmol/L (20.0-27.5); Non-African American GFR(CKD) 80.7 (60.0-200.0); Potassium 4.4 mmol/L (3.5-5.5)
== END | disposition home or self-care (01) ==
LOC: LABPAT 13:17
PROVIDERS: ATTEND Internal Medicine Clinical Cardiac Electrophysiology
DX: Z01.812 Encounter for preprocedural laboratory examination (principal)
CPT/HCPCS: 36415; 80051; 82565; 84520; 85027

== ENCOUNTER 2022-09-05 05:45 | Emergency (ER) | payer MEDICAID ==
[2022-09-05 05:52] VITALS: TEMP 98
[2022-09-05] MEDS ORDERED: SODIUM CHLORIDE 0.9% 1,000 ML IV STA (06:12)
[2022-09-05 06:23] LABS: Basophils % (A) 1 %; Eosinophils # (A) 0.2 k/uL (0-0.7); Eosinophils % (A) 3 %; HCT 41.3 % (34.0-46.0); HGB 14.2 gm/dL (11.4-16.0); Lymphocytes # (A) 2.6 k/uL (1.0-4.8); Lymphocytes % (A) 30 %; MCH 30.4 pg (25.0-35.0); MCHC 34.3 g/dL (31.0-37.0); MCV 88.5 fL (80.0-100.0); Mean Platelet Volume 9.1; Monocytes # (A) 0.5 k/uL (0-1.0); Monocytes % (A) 6 %; Neutrophils # (A) 5.3 k/uL (1.3-7.7); Neutrophils % (A) 60 %; Platelet Count 202 k/uL (150-450); RBC 4.67 m/uL (3.80-5.40); RDW 13.9 % (11.5-15.5); WBC 8.8 k/uL (3.8-10.6)
--- NOTE | 2022-09-05 06:30 | XR ---
EXAMINATION TYPE: XR chest 2V DATE OF EXAM: 09/05/2022 COMPARISON: 01/07/2022 HISTORY: Chest pain TECHNIQUE: 2 views FINDINGS: Heart and mediastinum are normal. Lungs are clear. There is normal. Bony thorax is intact. There is spurring in the thoracic spine. IMPRESSION: No active cardiopulmonary disease. No change.
[2022-09-05 06:31] LABS: INR 0.9 (<1.2); Prothrombin Time 10.1 sec (9.0-12.0)
[2022-09-05 06:36] LABS: ALT 27 U/L (4-34); AST 26 U/L (14-36); African American GFR (CKD) >90 (>60 ml/min/1.73 sqM); Alkaline Phosphatase 107 U/L (38-126); Anion Gap 11 mmol/L; Blood Urea Nitrogen 17 mg/dL (7-17); Carbon Dioxide 25 mmol/L (22-30); Chloride 104 mmol/L (98-107); Glucose 132 mg/dL (74-99); Magnesium 1.8 mg/dL (1.6-2.3); Non-African American GFR(CKD) >90 (>60 ml/min/1.73 sqM); Potassium 4.4 mmol/L (3.5-5.1); Sodium 140 mmol/L (137-145); Total Bilirubin 0.5 mg/dL (0.2-1.3); Total Protein 6.9 g/dL (6.3-8.2)
--- NOTE | 2022-09-05 06:56 | ED ---
Arrhythmia/Palpitations HPI - General Chief Complaint: Arrhythmia/Palpitations Stated Complaint: high heart rate Time Seen by Provider: 09/05/22 06:06 Source: patient Mode of arrival: ambulatory Limitations: no limitations - History of Present Illness Initial Comments: Patient is a 62-year-old female presenting with chief complaint of palpitations. Patient states that starting at 0300 she has felt a sensation of elevated heart rate. Patient is on eliquis and metoprolol. She admits to some shortness of breath on exertion, alleviated with rest. No chest pain. No abdominal pain, nausea, vomiting. No fever or chills. She admits to mild headache. No vision or hearing changes, dizziness, neck pain or stiffness. - Related Data Home Medications Medication Instructions Recorded Confirmed Celecoxib [CeleBREX] 200 mg PO DAILY 05/28/17 03/17/22 Montelukast [Singulair] 10 mg PO DAILY 05/28/17 03/17/22 Multivitamins, Thera [Multivitamin 1 tab PO DAILY 05/28/17 03/17/22 (formulary)] hydroCHLOROthiazide 25 mg PO DAILY 05/28/17 03/17/22 Ascorbic Acid [Vitamin C] 1,000 mg PO DAILY 01/07/22 03/17/22 Atorvastatin [Lipitor] 10 mg PO DAILY 01/07/22 03/17/22 Cholecalciferol [Vitamin D3 (25 25 mcg PO DAILY 01/07/22 03/17/22 Mcg = 1000 Iu)] Omeprazole 20 mg PO DAILY 01/07/22 03/17/22 Vitamin B Complex 1 cap PO DAILY 01/07/22 03/17/22 lisinopriL [Zestril] 5 mg PO DAILY 01/07/22 03/17/22 Albuterol Inhaler [Ventolin Hfa 2 puff INHALATION RT-QID PRN 03/13/22 03/17/22 Inhaler] Previous Rx's Medication Instructions Recorded Apixaban [Eliquis] 5 mg PO BID #60 tab 01/08/22 Metoprolol Tartrate [Lopressor] 50 mg PO BID #60 tab 03/18/22 Allergies Allergy/AdvReac Type Severity Reaction Status Date / Time No Known Allergies Allergy Verified 09/05/22 05:49 Review of Systems ROS Statement: Those systems with pertinent positive or pertinent negative responses have been documented in the HPI. ROS Other: All systems not noted in ROS Statement are negative. Past Medical History Past Medical History: Atrial Fibrillation, Asthma, GERD/Reflux, Hyperlipidemia, Hypertension, Osteoarthritis (OA), Sleep Apnea/CPAP/BIPAP Additional Past Medical History / Comment(s): uses CPAP, see DR. Lazo H & P History of Any Multi-Drug Resistant Organisms: None Reported Past Surgical History: Section, Cholecystectomy, Orthopedic Surgery, Uterine Ablation Additional Past Surgical History / Comment(s): rt wrist surgery with pin, colonoscopy, R knee sx Past Anesthesia/Blood Transfusion Reactions: Postoperative Nausea & Vomiting (PONV) Additional Past Anesthesia/Blood Transfusion Reaction / Comment(s): Claustrophobic Past Psychological History: No Psychological Hx Reported Smoking Status: Never smoker Past Alcohol Use History: None Reported Past Drug Use History: None Reported - Past Family History Father Family Medical History: Cancer Additional Family Medical History / Comment(s): colon cancer Mother Family Medical History: Congestive Heart Failure (CHF), COPD Sister(s) Additional Family Medical History / Comment(s): brain CA Brother(s) Additional Family Medical History / Comment(s): Pancreatic CA, at 72 years old. General Exam Limitations: no limitations General appearance: alert, in no apparent distress Head exam: Present: atraumatic, normocephalic, normal inspection Eye exam: Present: normal appearance, PERRL, EOMI. Absent: scleral icterus, c onjunctival injection, periorbital swelling Neck exam: Present: normal inspection Respiratory exam: Present: normal lung sounds bilaterally. Absent: respiratory distress, wheezes, rales, rhonchi, stridor Cardiovascular Exam: Present: regular rate, normal rhythm, normal heart sounds. Absent: systolic murmur, diastolic murmur, rubs, gallop, clicks Neurological exam: Present: alert, oriented X3, CN II-XII intact Psychiatric exam: Present: normal affect, normal mood Skin exam: Present: warm, dry, intact, normal color. Absent: rash Course Vital Signs 09/05/22 09/05/22 09/05/22 05:50 06:16 06:51 Temperature 98 F Pulse Rate 65 61 Pulse Rate [ 67 Table Games Dealer ] Respiratory 16 18 Rate Blood Pressure 112/65 133/76 O2 Sat by Pulse 95 97 Oximetry Medical Decision Making - Medical Decision Making Patient is a 62-year-old female history of atrial fibrillation presenting with chief complaint of palpitations. Palpitations started at 0300, she states she felt like her heart was racing and fluctuating. Physical examination is unremarkable. Lab work is grossly negative, including negative troponin and ne gative Covid. Chest x-ray shows no acute process. EKG shows sinus rhythm with rate of 65. Patient is asymptomatic during her stay. She appears stable for discharge with outpatient follow-up at this time. Follow-up with PCP and dielectric testing machine operator. Report back to ER with any new or worsening symptoms. Discussed return parameters and answered all questions. Patient conveyed verbal understanding and agreed to the plan. I discussed this case in detail with my attending Dr. Hitchcock. - Lab Data Result diagrams: 09/05/22 06:15 09/05/22 06:15 Lab Results 09/05/22 09/05/22 09/05/22 Range/Units 06:15 06:15 06:15 WBC 8.8 (3.8-10.6) k/uL RBC 4.67 (3.80-5.40) m/uL Hgb 14.2 (11.4-16.0) gm/dL Hct 41.3 (34.0-46.0) % MCV 88.5 (80.0-100.0) fL MCH 30.4 (25.0-35.0) pg MCHC 34.3 (31.0-37.0) g/dL RDW 13.9 (11.5-15.5) % Plt Count 202 (150-450) k/uL MPV 9.1 Neutrophils % 60 % Lymphocytes % 30 % Monocytes % 6 % Eosinophils % 3 % Basophils % 1 % Neutrophils # 5.3 (1.3-7.7) k/uL Lymphocytes # 2.6 (1.0-4.8) k/uL Monocytes # 0.5 (0-1.0) k/uL Eosinophils # 0.2 (0-0.7) k/uL Basophils # 0.0 (0-0.2) k/uL PT 10.1 (9.0-12.0) sec INR 0.9 (<1.2) APTT 27.0 (22.0-30.0) sec Sodium 140 (137-145) mmol/L Potassium 4.4 (3.5-5.1) mmol/L Chloride 104 (98-107) mmol/L Carbon Dioxide 25 (22-30) mmol/L Anion Gap 11 mmol/L BUN 17 (7-17) mg/dL Creatinine 0.67 (0.52-1.04) mg/dL Est GFR (CKD-EPI)AfAm >90 (>60 ml/min/1.73 sqM) Est GFR (CKD-EPI)NonAf >90 (>60 ml/min/1.73 sqM) Glucose 132 H (74-99) mg/dL Calcium 9.0 (8.4-10.2) mg/dL Magnesium 1.8 (1.6-2.3) mg/dL Total Bilirubin 0.5 (0.2-1.3) mg/dL AST 26 (14-36) U/L ALT 27 (4-34) U/L Alkaline Phosphatase 107 (38-126) U/L Troponin I (0.000-0.034) ng/mL Total Protein 6.9 (6.3-8.2) g/dL Albumin 4.0 (3.5-5.0) g/dL TSH 3.450 (0.465-4.680) mIU/L Coronavirus (PCR) (Not Detectd) 09/05/22 09/05/22 Range/Units 06:15 06:25 WBC (3.8-10.6) k/uL RBC (3.80-5.40) m/uL Hgb (11.4-16.0) gm/dL Hct (34.0-46.0) % MCV (80.0-100.0) fL MCH (25.0-35.0) pg MCHC (31.0-37.0) g/dL RDW (11.5-15.5) % Plt Count (150-450) k/uL MPV Neutrophils % % Lymphocytes % % Monocytes % % Eosinophils % % Basophils % % Neutrophils # (1.3-7.7) k/uL Lymphocytes # (1.0-4.8) k/uL Monocytes # (0-1.0) k/uL Eosinophils # (0-0.7) k/uL Basophils # (0-0.2) k/uL PT (9.0-12.0) sec INR (<1.2) APTT (22.0-30.0) sec Sodium (137-145) mmol/L Potassium (3.5-5.1) mmol/L Chloride (98-107) mmol/L Carbon Dioxide (22-30) mmol/L Anion Gap mmol/L BUN (7-17) mg/dL Creatinine (0.52-1.04) mg/dL Est GFR (CKD-EPI)AfAm (>60 ml/min/1.73 sqM) Est GFR (CKD-EPI)NonAf (>60 ml/min/1.73 sqM) Glucose (74-99) mg/dL Calcium (8.4-10.2) mg/dL Magnesium (1.6-2.3) mg/dL Total Bilirubin (0.2-1.3) mg/dL AST (14-36) U/L ALT (4-34) U/L Alkaline Phosphatase (38-126) U/L Troponin I <0.012 (0.000-0.034) ng/mL Total Protein (6.3-8.2) g/dL Albumin (3.5-5.0) g/dL TSH (0.465-4.680) mIU/L Coronavirus (PCR) Not Detected (Not Detectd) Disposition Clinical Impression: Palpitations Disposition: HOME SELF-CARE Condition: Good Instructions (If sedation given, give patient instructions): Heart Palpitations (ED) Additional Instructions: Follow-up with PCP and dielectric testing machine operator. Report back to ER with any new or worsening symptoms. Is patient prescribed a controlled substance at d/c from ED?: No Referrals: Tessa Salas III, MD [Primary Care Provider] - 1-2 days Time of Disposition: 07:23
[2022-09-05 07:24] VITALS: BP 133/76; PULSE 61; RESP 18
== END 2022-09-05 07:27 | disposition home or self-care (01) ==
LOC: EC 05:45
DX: R00.2 Palpitations (principal); K21.9 Gastro-esophageal reflux disease without esophagitis; E78.5 Hyperlipidemia, unspecified; I10 Essential (primary) hypertension; Z79.899 Other long term (current) drug therapy
CPT/HCPCS: 36415; 71046; 80053; 83735; 84443; 84484; 85025; 85610; 85730; 87635; 93005

== ENCOUNTER 2023-06-23 21:43 | Emergency (ER) | payer MEDICAID ==
[2023-06-23 21:53] VITALS: RESP 18
--- NOTE | 2023-06-23 22:31 | ED ---
General Adult HPI - General Chief complaint: Arrhythmia/Palpitations Stated complaint: tachycardia, palpitations Time Seen by Provider: 06/23/23 22:04 Source: patient, family, RN notes reviewed, old records reviewed Mode of arrival: wheelchair Limitations: no limitations - History of Present Illness Initial comments: 62-year-old female presented for evaluation palpitations per patient has known diagnosis of atrial fibrillation. She states that prior to arrival she had sensation that her heart was beating irregularly and rapid. No associated chest pain. No fever. No vomiting. Patient has been compliant with her medication which does include anticoagulation and beta cody. - Related Data Home Medications Medication Instructions Recorded Confirmed Celecoxib [CeleBREX] 200 mg PO DAILY 05/28/17 03/17/22 Montelukast [Singulair] 10 mg PO DAILY 05/28/17 03/17/22 Multivitamins, Thera [Multivitamin 1 tab PO DAILY 05/28/17 03/17/22 (formulary)] hydroCHLOROthiazide 25 mg PO DAILY 05/28/17 03/17/22 Ascorbic Acid [Vitamin C] 1,000 mg PO DAILY 01/07/22 03/17/22 Atorvastatin [Lipitor] 10 mg PO DAILY 01/07/22 03/17/22 Cholecalciferol [Vitamin D3 (25 25 mcg PO DAILY 01/07/22 03/17/22 Mcg = 1000 Iu)] Omeprazole 20 mg PO DAILY 01/07/22 03/17/22 Vitamin B Complex 1 cap PO DAILY 01/07/22 03/17/22 lisinopriL [Zestril] 5 mg PO DAILY 01/07/22 03/17/22 Albuterol Inhaler [Ventolin Hfa 2 puff INHALATION RT-QID PRN 03/13/22 03/17/22 Inhaler] Previous Rx's Medication Instructions Recorded Apixaban [Eliquis] 5 mg PO BID #60 tab 01/08/22 Metoprolol Tartrate [Lopressor] 50 mg PO BID #60 tab 03/18/22 Allergies Allergy/AdvReac Type Severity Reaction Status Date / Time No Known Allergies Allergy Verified 06/23/23 21:49 Review of Systems ROS Statement: Those systems with pertinent positive or pertinent negative responses have been documented in the HPI. ROS Other: All systems not noted in ROS Statement are negative. Past Medical History Past Medical History: Atrial Fibrillation, Asthma, GERD/Reflux, Hyperlipidemia, Hypertension, Osteoarthritis (OA), Sleep Apnea/CPAP/BIPAP Additional Past Medical History / Comment(s): uses CPAP, see DR. Lazo H & P History of Any Multi-Drug Resistant Organisms: None Reported Past Surgical History: Section, Cholecystectomy, Orthopedic Surgery, Uterine Ablation Additional Past Surgical History / Comment(s): rt wrist surgery with pin, colonoscopy, R knee sx Past Anesthesia/Blood Transfusion Reactions: Postoperative Nausea & Vomiting (PONV) Additional Past Anesthesia/Blood Transfusion Reaction / Comment(s): Claustrophobic Past Psychological History: No Psychological Hx Reported Smoking Status: Never smoker Past Alcohol Use History: None Reported Past Drug Use History: None Reported - Past Family History Father Family Medical History: Cancer Additional Family Medical History / Comment(s): colon cancer Mother Family Medical History: Congestive Heart Failure (CHF), COPD Sister(s) Additional Family Medical History / Comment(s): brain CA Brother(s) Additional Family Medical History / Comment(s): Pancreatic CA, at 72 years old. General Exam Limitations: no limitations General appearance: alert, in no apparent distress Head exam: Present: atraumatic, normocephalic Eye exam: Present: normal appearance, PERRL ENT exam: Present: normal exam Neck exam: Present: normal inspection. Absent: tenderness, meningismus Respiratory exam: Present: normal lung sounds bilaterally. Absent: respiratory distress, wheezes Cardiovascular Exam: Present: normal rhythm, bradycardia GI/Abdominal exam: Present: soft. Absent: distended, tenderness, guarding Extremities exam: Present: normal inspection, normal capillary refill Neurological exam: Present: alert, oriented X3, CN II-XII intact. Absent: motor sensory deficit Psychiatric exam: Present: normal affect, normal mood Skin exam: Present: warm, dry, intact Course Vital Signs 06/23/23 21:49 Temperature 98.2 F Pulse Rate 55 L Respiratory 18 Rate Blood Pressure 123/74 O2 Sat by Pulse 96 Oximetry Medical Decision Making - Medical Decision Making Was pt. sent in by a medical professional or institution (, PA, COIN MACHINE COLLECTOR, urgent care, hospital, or retirement...) When possible be specific @ -[No] Did you speak to anyone other than the patient for history (EMS, parent, family, police, friend...)? What history was obtained from this source @ -[No Did you review nursing and triage notes (agree or disagree)? Why? @ -[I reviewed and agree with nursing and triage notes] Were old charts reviewed (outside hosp., previous admission, EMS record, old EKG, old radiological studies, urgent care reports/EKG's, retirement records)? Report findings @ -[No old charts were reviewed] Differential Diagnosis (chest pain, altered mental status, abdominal pain women, abdominal pain men, vaginal bleeding, weakness, fever, dyspnea, syncope, headach e, dizziness, GI bleed, back pain, seizure, CVA, palpatations, mental health, musculoskeletal)? @ "Differential Palpitations Ventricular arrhythmias, atrial arrhythmias, myocardial infarction, anemia, thyrotoxicosis, electrolyte imbalance, hypokalemia, pulmonary embolism, pulmon antonella disease, drugs, alcohol, anxiety, stress.... This is not meant to be an all-inclusive list. EKG interpreted by me (3pts min.). @ -[Sinus rhythm rate of 55, W[place] interval 169, QRS duration 93, QTC 398, no ST segment elevation. X-rays interpreted by me (1pt min.). @ -[None done] CT interpreted by me (1pt min.). @ -[None done] U/S interpreted by me (1pt. min.). @ -[None done] What testing was considered but not performed or refused? (CT, X-rays, U/S, labs)? Why? @ -[None] What meds were considered but not given or refused? Why? @ -[None] Did you discuss the management of the patient with other professionals (professionals i.e. , PA, COIN MACHINE COLLECTOR, lab, RT, psych nurse, health care social worker, wallet assembler, teacher, credit administration officer, foster care case manager)? Give summary @ -[No] Was smoking cessation discussed for >3mins.? @ -[No] Was critical care preformed (if so, how long)? @ -[No] Were there social determinants of health that impacted care today? How? (Homele ssness, low income, unemployed, alcoholism, drug addiction, transportation, low edu. Level, literacy, decrease access to med. care, detention, rehab)? @ -[No] Was there de-escalation of care discussed even if they declined (Discuss DNR or withdrawal of care, Hospice)? DNR status @ -[No] What co-morbidities impacted this encounter? (DM, HTN, Smoking, COPD, CAD, Cancer, CVA, ARF, Chemo, Hep., AIDS, mental health diagnosis, sleep apnea, morbid obesity)? @ afibrillation Was patient admitted / discharged? Hospital course, mention meds given and route, prescriptions, significant lab abnormalities, going to OR and other pertinent info. @ -[62-year-old female with palpitation. Patient is in sinus rhythm rate in the 50s. Stable blood pressure. Symptoms have resolved. She has normal CBC, normal CMP, negative troponin. She will continue home medications as prescribed and follow-up with her primary care or certified legal investigator. Undiagnosed new problem with uncertain prognosis? @ -[No] Drug Therapy requiring intensive monitoring for toxicity (Heparin, Nitro, Insulin, Cardizem)? @ -[No] Were any procedures done? @ -[No] Diagnosis/symptom? @ Palpitations history of atrial fibrillation Acute, or Chronic, or Acute on Chronic? @ Acute Uncomplicated (without systemic symptoms) or Complicated (systemic symptoms)? @ -[complicated Side effects of treatment? @ -[No] Exacerbation, Progression, or Severe Exacerbation? @ -[No] Poses a threat to life or bodily function? How? (Chest pain, USA, HI, pneumonia, PE, COPD, DKA, ARF, appy, cholecystitis, CVA, Diverticulitis, Homicidal, Suicidal, threat to staff... and all critical care pts) @ -[Yes, arrhythmia - Lab Data Result diagrams: 06/23/23 22:31 06/23/23 22:31 Lab Results 06/23/23 06/23/23 06/23/23 Range/Units 22:31 22:31 22:31 WBC 7.9 (3.8-10.6) k/uL RBC 4.00 (3.80-5.40) m/uL Hgb 12.4 (11.4-16.0) gm/dL Hct 35.1 (34.0-46.0) % MCV 87.7 (80.0-100.0) fL MCH 30.9 (25.0-35.0) pg MCHC 35.2 (31.0-37.0) g/dL RDW 14.0 (11.5-15.5) % Plt Count 149 L (150-450) k/uL MPV 9.1 Neutrophils % 61 % Lymphocytes % 28 % Monocytes % 6 % Eosinophils % 3 % Basophils % 0 % Neutrophils # 4.8 (1.3-7.7) k/uL Lymphocytes # 2.2 (1.0-4.8) k/uL Monocytes # 0.5 (0-1.0) k/uL Eosinophils # 0.3 (0-0.7) k/uL Basophils # 0.0 (0-0.2) k/uL PT 10.2 (9.0-12.0) sec INR 1.0 (<1.2) APTT 26.2 (22.0-30.0) sec Sodium 137 (137-145) mmol/L Potassium 4.0 (3.5-5.1) mmol/L Chloride 105 (98-107) mmol/L Carbon Dioxide 24 (22-30) mmol/L Anion Gap 8 mmol/L BUN 17 (7-17) mg/dL Creatinine 0.66 (0.52-1.04) mg/dL Est GFR (CKD-EPI)AfAm >90 (>60 ml/min/1.73 sqM) Est GFR (CKD-EPI)NonAf >90 (>60 ml/min/1.73 sqM) Glucose 148 H (74-99) mg/dL Calcium 8.7 (8.4-10.2) mg/dL Magnesium 2.0 (1.6-2.3) mg/dL Total Bilirubin 0.6 (0.2-1.3) mg/dL AST 27 (14-36) U/L ALT 26 (4-34) U/L Alkaline Phosphatase 99 (38-126) U/L Troponin I (0.000-0.034) ng/mL Total Protein 6.9 (6.3-8.2) g/dL Albumin 3.7 (3.5-5.0) g/dL /08/07 Range/Units 22:31 WBC (3.8-10.6) k/uL RBC (3.80-5.40) m/uL Hgb (11.4-16.0) gm/dL Hct (34.0-46.0) % MCV (80.0-100.0) fL MCH (25.0-35.0) pg MCHC (31.0-37.0) g/dL RDW (11.5-15.5) % Plt Count (150-450) k/uL MPV Neutrophils % % Lymphocytes % % Monocytes % % Eosinophils % % Basophils % % Neutrophils # (1.3-7.7) k/uL Lymphocytes # (1.0-4.8) k/uL Monocytes # (0-1.0) k/uL Eosinophils # (0-0.7) k/uL Basophils # (0-0.2) k/uL PT (9.0-12.0) sec INR (<1.2) APTT (22.0-30.0) sec Sodium (137-145) mmol/L Potassium (3.5-5.1) mmol/L Chloride (98-107) mmol/L Carbon Dioxide (22-30) mmol/L Anion Gap mmol/L BUN (7-17) mg/dL Creatinine (0.52-1.04) mg/dL Est GFR (CKD-EPI)AfAm (>60 ml/min/1.73 sqM) Est GFR (CKD-EPI)NonAf (>60 ml/min/1.73 sqM) Glucose (74-99) mg/dL Calcium (8.4-10.2) mg/dL Magnesium (1.6-2.3) mg/dL Total Bilirubin (0.2-1.3) mg/dL AST (14-36) U/L ALT (4-34) U/L Alkaline Phosphatase (38-126) U/L Troponin I <0.012 (0.000-0.034) ng/mL Total Protein (6.3-8.2) g/dL Albumin (3.5-5.0) g/dL Disposition Clinical Impression: Palpitations Disposition: HOME SELF-CARE Condition: Good Instructions (If sedation given, give patient instructions): Heart Palpitations (ED) Is patient prescribed a controlled substance at d/c from ED?: No Referrals: Clint Stiles MD [Primary Care Provider] - 1-2 days Time of Disposition: 00:29
[2023-06-23 23:05] LABS: Basophils % (A) 0 %; Eosinophils # (A) 0.3 k/uL (0-0.7); Eosinophils % (A) 3 %; HCT 35.1 % (34.0-46.0); HGB 12.4 gm/dL (11.4-16.0); Lymphocytes # (A) 2.2 k/uL (1.0-4.8); Lymphocytes % (A) 28 %; MCH 30.9 pg (25.0-35.0); MCHC 35.2 g/dL (31.0-37.0); MCV 87.7 fL (80.0-100.0); Mean Platelet Volume 9.1; Monocytes # (A) 0.5 k/uL (0-1.0); Monocytes % (A) 6 %; Neutrophils # (A) 4.8 k/uL (1.3-7.7); Neutrophils % (A) 61 %; Platelet Count 149 k/uL (150-450); WBC 7.9 k/uL (3.8-10.6)
[2023-06-23 23:13] LABS: Partial Thromboplastin Time 26.2 sec (22.0-30.0); Prothrombin Time 10.2 sec (9.0-12.0)
[2023-06-23 23:24] LABS: ALT 26 U/L (4-34); AST 27 U/L (14-36); African American GFR (CKD) >90 (>60 ml/min/1.73 sqM); Albumin 3.7 g/dL (3.5-5.0); Alkaline Phosphatase 99 U/L (38-126); Anion Gap 8 mmol/L; Blood Urea Nitrogen 17 mg/dL (7-17); Calcium 8.7 mg/dL (8.4-10.2); Carbon Dioxide 24 mmol/L (22-30); Chloride 105 mmol/L (98-107); Glucose 148 mg/dL (74-99); Non-African American GFR(CKD) >90 (>60 ml/min/1.73 sqM); Sodium 137 mmol/L (137-145); Total Bilirubin 0.6 mg/dL (0.2-1.3); Total Protein 6.9 g/dL (6.3-8.2)
[2023-06-24 00:59] VITALS: BP 133/69; PULSE 52; TEMP 98.3
== END 2023-06-24 00:58 | disposition home or self-care (01) ==
LOC: EC 21:43
DX: R00.2 Palpitations (principal); I48.91 Unspecified atrial fibrillation; J45.909 Unspecified asthma, uncomplicated; I10 Essential (primary) hypertension; G47.30 Sleep apnea, unspecified; E78.5 Hyperlipidemia, unspecified; K21.9 Gastro-esophageal reflux disease without esophagitis; M19.90 Unspecified osteoarthritis, unspecified site; Z79.1 Long term (current) use of non-steroidal anti-inflammatories (NSAID); Z79.899 Other long term (current) drug therapy
CPT/HCPCS: 36415; 80053; 83735; 84484; 85025; 85610; 85730; 93005; 99285

== ENCOUNTER → 2023-08-21 | Outpatient (CLI) | payer MEDICAID ==
[2023-08-21 14:58] LABS: ALT 24 U/L (8-44); AST 20 U/L (13-35); Albumin 4.3 d/dL (3.8-4.9); Albumin/Globulin Ratio 1.48 Ratio (1.60-3.17); Alkaline Phosphatase 121 U/L (41-126); Blood Urea Nitrogen 16.8 mg/dL (9.0-27.0); Calcium 9.5 mg/dL (8.7-10.3); Carbon Dioxide 26.8 mmol/L (21.6-31.8); Chloride 104 mmol/L (96-109); Chol/HDL Ratio 2.25 Ratio; Globulin 2.9 d/dL (1.6-3.3); Glucose 116 mg/dL (70-110); LDL Cholesterol,Calculated 52.3 mg/dL (0.0-131.0); Potassium 4.2 mmol/L (3.5-5.5); Sodium 142 mmol/L (135-145); T4, Free (Free Thyroxine) 1.11 ng/dL (0.80-1.80); Total Bilirubin 0.6 mg/dL (0.3-1.2); Total Protein 7.2 d/dL (6.2-8.2); VLDL Calculation 16.14 mg/dL (5.00-40.00)
== END | disposition home or self-care (01) ==
LOC: LABWHC1 09:17
PROVIDERS: ATTEND Internal Medicine Clinical Cardiac Electrophysiology
DX: I10 Essential (primary) hypertension (principal); I48.19 Other persistent atrial fibrillation; R73.03 Prediabetes
CPT/HCPCS: 36415; 80053; 80061; 84439; 84443

== ENCOUNTER 2023-12-08 13:16 | Emergency (ER) | payer MEDICAID, OTHER ==
--- NOTE | 2023-12-08 13:33 | ED ---
General Adult HPI - General Chief complaint: Needlestick/Exposure Stated complaint: [facility] needle stick Time Seen by Provider: 12/08/23 13:31 Source: patient, RN notes reviewed Mode of arrival: ambulatory Limitations: no limitations - History of Present Illness Initial comments: 63-year-old female presents to the emergency department for evaluation of left thumb needlestick injury. Patient states that she is stuck at work by a needle from one of her clients. Patient works at [employer]. As far she is aware of the source patient did not have blood drawn. - Related Data Home Medications Medication Instructions Recorded Confirmed Celecoxib [CeleBREX] 200 mg PO DAILY 05/28/17 03/17/22 Montelukast [Singulair] 10 mg PO DAILY 05/28/17 03/17/22 Multivitamins, Thera [Multivitamin 1 tab PO DAILY 05/28/17 03/17/22 (formulary)] hydroCHLOROthiazide 25 mg PO DAILY 05/28/17 03/17/22 Ascorbic Acid [Vitamin C] 1,000 mg PO DAILY 01/07/22 03/17/22 Atorvastatin [Lipitor] 10 mg PO DAILY 01/07/22 03/17/22 Cholecalciferol [Vitamin D3 (25 25 mcg PO DAILY 01/07/22 03/17/22 Mcg = 1000 Iu)] Omeprazole 20 mg PO DAILY 01/07/22 03/17/22 Vitamin B Complex 1 cap PO DAILY 01/07/22 03/17/22 lisinopriL [Zestril] 5 mg PO DAILY 01/07/22 03/17/22 Albuterol Inhaler [Ventolin Hfa 2 puff INHALATION RT-QID PRN 03/13/22 03/17/22 Inhaler] Previous Rx's Medication Instructions Recorded Apixaban [Eliquis] 5 mg PO BID #60 tab 01/08/22 Metoprolol Tartrate [Lopressor] 50 mg PO BID #60 tab 03/18/22 Allergies Allergy/AdvReac Type Severity Reaction Status Date / Time No Known Allergies Allergy Verified 12/08/23 13:24 Review of Systems ROS Statement: Those systems with pertinent positive or pertinent negative responses have been documented in the HPI. ROS Other: All systems not noted in ROS Statement are negative. Past Medical History Past Medical History: Atrial Fibrillation, Asthma, GERD/Reflux, Hyperlipidemia, Hypertension, Osteoarthritis (OA), Sleep Apnea/CPAP/BIPAP Additional Past Medical History / Comment(s): uses CPAP, see DR. Lazo H & P History of Any Multi-Drug Resistant Organisms: None Reported Past Surgical History: Section, Cholecystectomy, Orthopedic Surgery, Uterine Ablation Additional Past Surgical History / Comment(s): rt wrist surgery with pin, colonoscopy, R knee sx Past Anesthesia/Blood Transfusion Reactions: Postoperative Nausea & Vomiting (PONV) Additional Past Anesthesia/Blood Transfusion Reaction / Comment(s): Claustrophobic Past Psychological History: No Psychological Hx Reported Smoking Status: Never smoker Past Alcohol Use History: None Reported Past Drug Use History: None Reported - Past Family History Father Family Medical History: Cancer Additional Family Medical History / Comment(s): colon cancer Mother Family Medical History: Congestive Heart Failure (CHF), COPD Sister(s) Additional Family Medical History / Comment(s): brain CA Brother(s) Additional Family Medical History / Comment(s): Pancreatic CA, at 72 years old. General Exam - General Exam Comments Initial Comments: Visual Physical Exam Vital signs reviewed General: Well-appearing, nontoxic, no acute distress. Head: Normocephalic, atraumatic Eyes: PERRLA, EOMI ENT: Airway patent Chest: Nonlabored breathing Skin: No visual rash, normal skin tone Neuro: Alert and oriented 3 Musculoskeletal: No gross abnormalities Limitations: no limitations General appearance: alert, in no apparent distress Head exam: Present: atraumatic, normocephalic, normal inspection Eye exam: Present: normal appearance, PERRL, EOMI. Absent: scleral icterus, conjunctival injection, periorbital swelling ENT exam: Present: normal exam, mucous membranes moist Respiratory exam: Present: normal lung sounds bilaterally. Absent: respiratory distress, wheezes, rales, rhonchi, stridor Cardiovascular Exam: Present: regular rate, normal rhythm, normal heart sounds. Absent: systolic murmur, diastolic murmur, rubs, gallop, clicks Extremities exam: Present: normal inspection, full ROM, normal capillary refill, other. Absent: tenderness, pedal edema, joint swelling, calf tenderness Back exam: Present: normal inspection Neurological exam: Present: alert, oriented X3 Psychiatric exam: Present: normal affect, normal mood Skin exam: Present: warm, dry, normal color, other (puncture yokasta to left thumb) Course Vital Signs 12/08/23 13:22 Temperature 97.6 F Pulse Rate 56 L Respiratory 18 Rate Blood Pressure 138/65 O2 Sat by Pulse 98 Oximetry Medical Decision Making - Medical Decision Making Quick note preformed by Li Gold PA-C Was pt. sent in by a medical professional or institution (TONY Izaguirre, [employer]LO[employer] SAL[employer] MANAGER, urgent care, hospital, or penitentiary...) When possible be specific @ -No Did you speak to anyone other than the patient for history (EMS, parent, family, police, friend...)? What history was obtained from this source @ -No Did you review nursing and triage notes (agree or disagree)? Why? @ -I reviewed and agree with nursing and triage notes Were old charts reviewed (outside hosp., previous admission, EMS record, old EKG, old radiological studies, urgent care reports/EKG's, penitentiary records)? Report findings @ -No old charts were reviewed Differential Diagnosis (chest pain, altered mental status, abdominal pain women, abdominal pain men, vaginal bleeding, weakness, fever, dyspnea, syncope, headache, dizziness, GI bleed, back pain, seizure, CVA, palpatations, mental hea lth, musculoskeletal)? @ -Not applicable EKG interpreted by me (3pts min.). @ -None X-rays interpreted by me (1pt min.). @ -None done CT interpreted by me (1pt min.). @ -None done U/S interpreted by me (1pt. min.). @ -None done What testing was considered but not performed or refused? (CT, X-rays, U/S, labs)? Why? @ -None What meds were considered but not given or refused? Why? @ -None Did you discuss the management of the patient with other professionals (professionals i.e. TONY Izaguirre, GLOBAL SALES MANAGER, lab, RT, psych nurse, social security specialist, supervisor line department, teacher, detention officer, watch caser)? Give summary @ -No Was smoking cessation discussed for >3mins.? @ -No Was critical care preformed (if so, how long)? @ -No Were there social determinants of health that impacted care today? How? (Homelessness, low income, unemployed, alcoholism, drug addiction, transportation, low edu. Level, literacy, decrease access to med. care, longterm, rehab)? @ -No Was there de-escalation of care discussed even if they declined (Discuss DNR or withdrawal of care, Hospice)? DNR status @ -No What co-morbidities impacted this encounter? (DM, HTN, Smoking, COPD, CAD, Cancer, CVA, ARF, Chemo, Hep., AIDS, mental health diagnosis, sleep apnea, morbid obesity)? @ -None Was patient admitted / discharged? Hospital course, mention meds given and route, prescriptions, significant lab abnormalities, going to OR and other pe rtinent info. @ -Discharge. Patient presented to the emergency department for evaluation of needlestick injury that occurred at work. Patient works at [employer]. HIV and hepatitis status of the source patient is unknown. Risk stratification utilized for HIV prophylaxis. Patient decided against prophylaxis at this time. Discussed results of testing will be called to patient if positive. Patient understanding and agreeable with plan. Patient stable at time of discharge. Case discussed with Dr. Mendez Undiagnosed new problem with uncertain prognosis? @ -No Drug Therapy requiring intensive monitoring for toxicity (Heparin, Nitro, Insulin, Cardizem)? @ -No Were any procedures done? @ -No Diagnosis/symptom? @ -needlestick injury Acute, or Chronic, or Acute on Chronic? @ -acute Uncomplicated (without systemic symptoms) or Complicated (systemic symptoms)? @ -uncomplicated Side effects of treatment? @ -No Exacerbation, Progression, or Severe Exacerbation? @ -No Poses a threat to life or bodily function? How? (Chest pain, USA, PA, pneumonia, PE, COPD, DKA, ARF, appy, cholecystitis, CVA, Diverticulitis, Homicidal, Suicidal, threat to staff... and all critical care pts) @ -No Disposition Clinical Impression: Needlestick injury accident Disposition: HOME SELF-CARE Condition: Stable Additional Instructions: Follow up with your primary care provider. Is patient prescribed a controlled substance at d/c from ED?: No Referrals: Karol Clark NPC [REFERRING] - 1-2 days
[2023-12-08 13:42] VITALS: BP 138/65; PULSE 56; RESP 18; TEMP 97.6
[2023-12-08 19:08] LABS: Hepatitis B Surface Antigen Nonreactive; Hepatitis C IgG Antibody Nonreactive
[2023-12-08 21:17] LABS: Hepatitis B Surface AB- Quant 18.3 mIU/mL
[2023-12-09 00:37] LABS: HIV 2 AB Non-Reactive (Non-Reactive); HIV AB P24 Non-Reactive (Non-Reactive); HIV P24 AG Non-Reactive (Non-Reactive)
== END 2023-12-08 16:05 | disposition home or self-care (01) ==
LOC: EC 13:16
DX: S61.032A Puncture wound without foreign body of left thumb without damage to nail, initial encounter (principal); I48.91 Unspecified atrial fibrillation; E78.5 Hyperlipidemia, unspecified; I10 Essential (primary) hypertension; K21.9 Gastro-esophageal reflux disease without esophagitis; G47.30 Sleep apnea, unspecified; J45.909 Unspecified asthma, uncomplicated; Z79.899 Other long term (current) drug therapy; W46.0XXA Contact with hypodermic needle, initial encounter
CPT/HCPCS: 36415; 86704; 86706; 86803; 87340; 87390; 99283

== ENCOUNTER → 2024-01-03 | Outpatient (CLI) | payer MEDICAID ==
--- NOTE | 2024-01-08 11:09 | MR ---
EXAMINATION TYPE: MR lumbar spine wo con DATE OF EXAM: 01/03/2024 8:41 PM CLINICAL INDICATION:Female, 63 years old with history of M47.816 LUMBAR PAIN; PHH, Low back pain and numbness into left leg COMPARISON: None TECHNIQUE: Multi planar, multi sequence imaging was performed utilizing: T1-weighted, T2-weighted, a nd turbo inversion recovery imaging of the lumbar spine. IV Contrast: cc . (None if empty) FINDINGS: Alignment: The lumbar vertebral bodies have preserved heights with grade 1 anterolisthesis of L4 on L 5. Cord: The conus medullaris and the distal spinal cord appear unremarkable with regards to their signa l intensity and morphology. Bones/Discs: Mild degeneration changes throughout the spine with inversion recovery edema around the facet joints at L3-L4 bilaterally. Osteophyte formation and facet joint arthropathy. Intervertebral d isc signal is maintained. T12-L1: No evidence of significant spinal canal stenosis or neural foraminal stenosis. L1-L2: No evidence of significant spinal canal stenosis or neural foraminal stenosis. L2-L3: No evidence of significant spinal canal stenosis or neural foraminal stenosis. L3-L4: Disc bulge and facet joint arthropathy result in mild spinal canal and moderate left and mild right bilateral neural foraminal stenosis. L4-L5: Disc uncovering from grade 1 anterolisthesis and facet joint arthropathy with mild spinal kelsy l stenosis with moderate left and moderate right neural foraminal stenosis with osteophyte impressing upon the exiting nerve. L5-S1: The disc is rounded posterior morphology without significant spinal canal stenosis. Facet join t arthropathy with moderate bilateral neural foraminal stenosis. Extra foraminal osteophyte impresses upon the left nerve series 701 image 3. No significant spinal canal or neural foraminal stenosis in the remainder of the visualized levels. Other findings: None. IMPRESSION: 1. Multilevel degeneration changes with extra foraminal osteophyte impressing upon the exiting left L5-S1 nerve. 2. Grade 1 anterolisthesis of L4 and L5 with moderate right neural foraminal stenosis with osteophyt e impressing upon the neck seen right nerve. 3. Reactive edema around the L3-L4 facet joints. 4. No evidence for significant spinal canal stenosis.
== END | disposition home or self-care (01) ==
LOC: RADMRIMAIN 20:15
PROVIDERS: ATTEND Orthopaedic Surgery
DX: M47.26 Other spondylosis with radiculopathy, lumbar region (principal); M43.16 Spondylolisthesis, lumbar region; M25.78 Osteophyte, vertebrae; M99.73 Connective tissue and disc stenosis of intervertebral foramina of lumbar region; R60.0 Localized edema
CPT/HCPCS: 72148

== ENCOUNTER → 2024-03-15 | Outpatient (CLI) | payer MEDICAID ==
[2024-03-15 13:22] VITALS: BP 122/58; PULSE 47; RESP 16; TEMP 97.3
--- NOTE | 2024-03-15 13:37 | P.PAINPG ---
PQRS Measure Charge Sheet Comment: HISTORY OF PRESENT ILLNESS: A 63 yr oldfemale as a referral from Dr Villatoro presents today w severe and chronic LBP > 6 mo secondary to DDD, spondylosis and facet arthropathy for evaluation. Pt states pain level is provoked at 9 /10 in intensity, intermittent, localized in the lower lumbar spine, predominantly axial, achy in character w occasional shooting pain towards the back of the hips and thighs. Pain is provoked by over activity. Pain is alleviated by PT x 6 wks which ended in Jan 2024, physician guided home exercises/ stretches daily since Jan 2024. medications (Lyrica, Celebrex), repositioning and rest . Oswestry axial pain score at . PMH: OA, aFib, Asthma, GERD, Hyperlipidemia, HTN, DEL PSH: Section, Cholecystectomy, R Wrist Surgery w Pin, R Knee Surgery, Uterine Ablation, Colonoscopy (2021) SH: Negative x3 FH: Fa- Colon CA. Mo- CHF, COPD. Sis- Brain CA. Bro- Pancreatic CA/ at age 74. All: See list Meds: See list REVIEW OF ORGAN SYSTEMS: CONSTITUTIONAL: No fevers or chills. No recent weight loss. NEUROLOGICAL: + numbness and tingling along the distal extremities. No seizure disorders or headaches. MUSCULOSKELETAL: + pain PSYCHIATRIC: Denies current depression or suicidal thoughts. Physical Examinations : Constitutional : Cooperative , not in acute distress . Neurologic : Cranial nerve II to XII intact. No focal neurological deficits. Psychiatric : alert & oriented x 3. Matching mood & appropriate affect. Judgment & insight intact. Musculoskeletal : Cervical Spine Motor strength in the deltoid and biceps: Normal right side. Normal Left side Motor strength biceps and the wrist extensors: Normal right side . Normal left side Motor strength in the triceps muscle: Normal right side. Normal left side Deep tendon reflexes: Normal at the biceps. Normal at Brachioradialis. Normal at triceps Vertebral body tenderness to deep palpation over Cervical facet loading test: positive bilaterally Spurling test: positive bilaterally Neck distraction test: positive bilaterally Mohan sign: positive bilaterally Lumbar spine Motor strength lower extremities ,thigh and legs 5/5 Right side , 5/5 Left side Deep tendon reflexes : Normal Knee Jerk. Normal Ankle Jerk Vertebral body tenderness over L4 Ambriz Test positive Lumbar facet Loading Test: positive Right / positive Left Range of motion of the lumbar spine Flexion 30 degrees, extension 10 degrees Straight Leg Raise test: Left/ Right positive at < 35 degrees Aly test: positive right / positive left. Severe tenderness over the Sacroiliac joint on the Right / Left sides Gaenslen test: positive bilaterally Seated flexion test: positive bilaterally. Sacral spine : Severe tenderness over the Sacroiliac joint: right side / left side Range of motion: Flexion of the lumbar spine <60 degrees Range of motion: Extension of the lumbar spine <20 degrees Gaenslen's Test positive Aly test: positive right side / left side Thigh Thrust Test Sacral Thrust Test Imaging: MRI non contrast of the lumbar spine from 01/03/24 reviewed Assessment/ Plan : Lumbar DDD Recommendation of HANNA L4-L5 #1. May need a series of injections for optimal pain relief. Risks, benefits of procedure discussed and patient verbalized understanding. Admits to anti- coagulant use or medical history of diabetes. Protocol for discontinuation/ continuation of medications manfred procedure discussed.All questions answered. I have spent greater than 30 minutes on patient care today. Dr Burton was available by phone for the evaluation of this patient. The time was used to review the medical records including relevant urine studies and Prescription history (MAPs), review of the available imaging, evaluation and examination of the patient, coordination of care with the medical staff and if applicable referring physicians, as well as creation of the medical record PQRS Narrative: Smoking Status Never smoker Home Medications: Ambulatory Orders Celecoxib [CeleBREX] 200 mg PO DAILY 05/28/17 Montelukast [Singulair] 10 mg PO DAILY 05/28/17 Multivitamins, Thera [Multivitamin (formulary)] 1 tab PO DAILY 05/28/17 hydroCHLOROthiazide 25 mg PO DAILY 05/28/17 Ascorbic Acid [Vitamin C] 1,000 mg PO DAILY 01/07/22 Atorvastatin [Lipitor] 10 mg PO DAILY 01/07/22 Cholecalciferol [Vitamin D3 (25 Mcg = 1000 Iu)] 25 mcg PO DAILY 01/07/22 Omeprazole 20 mg PO DAILY 01/07/22 Vitamin B Complex 1 cap PO DAILY 01/07/22 lisinopriL [Zestril] 5 mg PO DAILY 01/07/22 Apixaban [Eliquis] 5 mg PO BID #60 tab 01/08/22 Albuterol Inhaler [Ventolin Hfa Inhaler] 2 puff INHALATION RT-QID PRN 03/13/22 Metoprolol Tartrate [Lopressor] 50 mg PO BID #60 tab 03/18/22 Controlled Substance Measures - Controlled Substance Measures Is patient prescribed a controlled substance at discharge?: No
== END ==
LOC: PNWHC3 09:05
PROVIDERS: ATTEND Specialist
DX: M51.16 Intervertebral disc disorders with radiculopathy, lumbar region (principal); M47.26 Other spondylosis with radiculopathy, lumbar region; G89.29 Other chronic pain
CPT/HCPCS: 99211

== ENCOUNTER → 2024-04-13 | Day surgery (SDC) | payer MEDICAID ==
[2024-04-12 11:42] VITALS: BMI 56.5
[~2024-04-13] MED LIST changes: -DEXAMETHASONE SOD PHOSPHATE 10 MG/ML 1 ML VIAL IV ONE; +IOPAMIDOL M200 10 ML VIAL ONE; -ceFAZolin 3 GM in SODIUM CHLORIDE 0.9% 100 ML IVPB ONE; +methylPREDNISolone ACETATE 40 MG/ML 1 ML VIAL ONE
[2024-04-13 08:07] VITALS: TEMP 97.3
--- NOTE | 2024-04-13 08:09 | P.PCN ---
Date of Procedure: 04/13/24 Description of Procedure: PREOPERATIVE DIAGNOSIS: lumbar radiculopathy POSTOPERATIVE DIAGNOSIS: Lumbar radiculopathy PROCEDURE 1. Lumbar epidural steroid injection under fluoroscopic guidance at the L4-L5 level. 2. Lumbar epidurogram. Imaging: Fluoroscopy was used, images where saved to the medical record ANESTHESIA:only EBL: Minimal PROCEDURE INDICATION: The patient with low back pain and radiculitis symptoms unresponsive to conservative treatment. Fluoroscopy was used to optimize visualization of the needle placement and to maximize safety. PROCEDURE DESCRIPTION / TECHNIQUE: The patient was seen and identified in the preoperative area. Risks, benefits, complications including but not limited to infections, bleeding, allergic reaction to medications, nerve damage and incomplete pain relief, as well as alternatives to the procedure were discussed with the patient. The patient agreed to proceed with the procedure and signed the consent. IV was started if indicated above, and vital signs were stable. Patient was taken to the OR and time out was completed. The patient was placed in the prone position on procedure table and a pillow was placed under the abdomen to reduce lumbar lordosis. The lumbosacral area was prepped and draped in the usual sterile fashion. Vitals were closely monitored during the procedure. Using anterior-posterior fluoroscopy, the L4-L5 interlaminar space was identified and the skin over this site was marked and then infiltrated with 1% lidocaine subcutaneously. Subsequently, a 18-gauge 7 inch Tuohy epidural needle was inserted and advanced toward the epidural space using the Loss of resistance technique and guided by AP and lateral fluoroscopy, ANYI @ 8CM. The correct needle position in the epidural space was verified with the injection of 1 mL of Omnipaque 180 contrast to observe an acceptable epidurogram, after negative aspiration for blood and CSF and in the absence of paresthesias. Again after negative aspiration, a 3 ml mixture containing 40mg of depomedrol and 2 ml of preservative free Normal Saline was injected and a washout of epidurogram was seen. Needle was withdrawn intact, skin was cleansed, and bandages were applied. COMPLICATIONS: None DISPOSITION / PLANS: The patient was placed in a supine position and transferred to the recovery area in a stable condition for observation. There was no evidence of lower extremity motor or sensory deficit after the procedure. Patient was discharged from the recovery room after meeting discharge criteria. Home discharge instructions were given to the patient by the staff. The patient was reexamined prior to discharge. The patient will follow up as directed.
--- NOTE | 2024-04-13 08:50 | FL ---
EXAMINATION TYPE: FL guided pain mgmt statistic DATE OF EXAM: 04/13/2024 HISTORY: Fluoroscopy time Total dose area product (DAP) in uGy*m?, mGy*cm? (or similar): 0.60332 IMPRESSION: 1. Fluoroscopy time.
[2024-04-13 08:54] VITALS: BP 122/69; PULSE 47; RESP 16
== END ==
LOC: ORPAIN 07:19
PROVIDERS: ATTEND Hospitalist
DX: M54.16 Radiculopathy, lumbar region (principal); Z79.01 Long term (current) use of anticoagulants
CPT/HCPCS: 62323; Q9966; J1010

== ENCOUNTER → 2024-05-04 | Outpatient (CLI) | payer MEDICAID ==
[2024-05-04 09:15] VITALS: BP 151/80; PULSE 41; RESP 16
--- NOTE | 2024-05-04 14:18 | P.PAINPG ---
Objective - Vital Signs Vital signs: Vital Signs Temp Pulse 41 L 05/04/24 09:13 Resp 16 05/04/24 09:13 BP 151/80 05/04/24 09:13 Pulse Ox 97 05/04/24 09:13 FiO2 Intake & Output 05/03/24 05/04/24 05/04/24 18:59 06:59 18:59 Weight 154.221 kg PQRS Measure Charge Sheet Mode of Arrival: Ambulatory Comment: HISTORY OF PRESENT ILLNESS: A 63 yr old female presents today w severe and chronic LBP > 6 mo secondary to DDD, spondylosis and facet arthropathy for evaluation s/p HANNA L4-L5 #1. Pt states she experienced 90% pain relief x 3 wks s/p procedure. Pt states pain level is provoked at 1 /10 in intensity, intermittent, localized in the lower lumbar spine, predominantly axial, achy in character w occasional shooting pain towards the back of the hips and thighs. Pain is provoked by over activity. Pain is alleviated by PT x 6 wks which ended in Jan 2024, physician guided home exercises/ stretches daily since Jan 2024. medications, repositioning and rest . Oswestry axial pain score at 15. Interventional procedures include HANNA L4-L5 x1 Medications include Lyrica, Celebrex REVIEW OF ORGAN SYSTEMS: CONSTITUTIONAL: No fevers or chills. No recent weight loss. NEUROLOGICAL: + numbness and tingling along the distal extremities. No seizure disorders or headaches. MUSCULOSKELETAL: + pain PSYCHIATRIC: Denies current depression or suicidal thoughts. Physical Examinations : Constitutional : Cooperative , not in acute distress . Neurologic : Cranial nerve II to XII intact. No focal neurological deficits. Psychiatric : alert & oriented x 3. Matching mood & appropriate affect. Judgment & insight intact. Musculoskeletal : Cervical Spine Motor strength in the deltoid and biceps: Normal right side. Normal Left side Motor strength biceps and the wrist extensors: Normal right side . Normal left side Motor strength in the triceps muscle: Normal right side. Normal left side Deep tendon reflexes: Normal at the biceps. Normal at Brachioradialis. Normal at triceps Vertebral body tenderness to deep palpation over Cervical facet loading test: positive bilaterally Spurling test: positive bilaterally Neck distraction test: positive bilaterally Mohan sign: positive bilaterally Lumbar spine Motor strength lower extremities ,thigh and legs 5/5 Right side , 5/5 Left side Deep tendon reflexes : Normal Knee Jerk. Normal Ankle Jerk Vertebral body tenderness over L4 Ambriz Test positive Lumbar facet Loading Test: positive Right / positive Left Range of motion of the lumbar spine Flexion 30 degrees, extension 10 degrees Straight Leg Raise test: Left/ Right positive at < 35 degrees Aly test: positive right / positive left. Severe tenderness over the Sacroiliac joint on the Right / Left sides Gaenslen test: positive bilaterally Seated flexion test: positive bilaterally. Sacral spine : Severe tenderness over the Sacroiliac joint: right side / left side Range of motion: Flexion of the lumbar spine <60 degrees Range of motion: Extension of the lumba r spine <20 degrees Gaenslen's Test positive Aly test: positive right side / left side Thigh Thrust Test Sacral Thrust Test Imaging: MRI non contrast of the lumbar spine from 01/03/24 reviewed Assessment/ Plan : Lumbar DDD Will manage residual pain and may RTC on an as needed basis. All questions answered. I have spent greater than 30 minutes on patient care today. Dr Burton was available by phone for the evaluation of this patient. The time was used to review the medical records including relevant urine studies and Prescription history (MAPs), review of the available imaging, evaluation and examination of the patient, coordination of care with the medical staff and if applicable referring physicians, as well as creation of the medical record PQRS Narrative: Smoking Status Never smoker Blood Pressure 151/80 Scale Used Numeric (1 - 10) Hx Alcohol Use (MH) No Home Medications: Ambulatory Orders Celecoxib [CeleBREX] 200 mg PO DAILY 05/28/17 Montelukast [Singulair] 10 mg PO DAILY 05/28/17 Multivitamins, Thera [Multivitamin (formulary)] 1 tab PO DAILY 05/28/17 hydroCHLOROthiazide 25 mg PO DAILY 05/28/17 Ascorbic Acid [Vitamin C] 1,000 mg PO DAILY 01/07/22 Atorvastatin [Lipitor] 10 mg PO DAILY 01/07/22 Cholecalciferol [Vitamin D3 (25 Mcg = 1000 Iu)] 25 mcg PO DAILY 01/07/22 Omeprazole 20 mg PO DAILY 01/07/22 Vitamin B Complex 1 cap PO DAILY 01/07/22 lisinopriL [Zestril] 10 mg PO DAILY 01/07/22 Apixaban [Eliquis] 5 mg PO BID #60 tab 01/08/22 Albuterol Inhaler [Ventolin Hfa Inhaler] 2 puff INHALATION RT-QID PRN 03/13/22 Metoprolol Tartrate [Lopressor] 50 mg PO BID #60 tab 03/18/22 Pregabalin [Lyrica] 100 mg PO BID 04/12/24 Controlled Substance Measures - Controlled Substance Measures Is patient prescribed a controlled substance at discharge?: No
== END ==
LOC: PNWHC3 08:36
PROVIDERS: ATTEND Specialist
DX: M51.36 Other intervertebral disc degeneration, lumbar region (principal); M47.816 Spondylosis without myelopathy or radiculopathy, lumbar region
CPT/HCPCS: 99211

== ENCOUNTER → 2024-08-17 | Outpatient (CLI) | payer MEDICAID ==
[2024-08-17 08:52] VITALS: BP 132/60; PULSE 52; RESP 19; TEMP 97.6
--- NOTE | 2024-08-17 14:59 | P.PAINPG ---
PQRS Measure Charge Sheet Comment: HISTORY OF PRESENT ILLNESS: A 64 yr old female presents today w severe and chronic LBP > 1 yr secondary to radiculopathy, spondylosis and facet arthropathy for evaluation. Pt states pain level is provoked at 6 /10 in intensity, intermittent, localized in the lower lumbar spine, predominantly axial, achy in character w occasional shooting pain towards the back of the hips and thighs. Pain is provoked by over activity. Pain is alleviated by PT x 6 wks which ended in Jan 2024, physician guided home exercises/ stretches daily since Jan 2024, medications, repositioning and rest . Interventional procedures include HANNA L4-L5 x1 Medications include Lyrica, Celebrex REVIEW OF ORGAN SYSTEMS: CONSTITUTIONAL: No fevers or chills. No recent weight loss. NEUROLOGICAL: + numbness and tingling along the distal extremities. No seizure disorders or headaches. MUSCULOSKELETAL: + pain PSYCHIATRIC: Denies current depression or suicidal thoughts. Physical Examinations : Constitutional : Cooperative , not in acute distress . Neurologic : Cranial nerve II to XII intact. No focal neurological deficits. Psychiatric : alert & oriented x 3. Matching mood & appropriate affect. Judgment & insight intact. Musculoskeletal : Cervical Spine Motor strength in the deltoid and biceps: Normal right side. Normal Left side Motor strength biceps and the wrist extensors: Normal right side . Normal left side Motor strength in the triceps muscle: Normal right side. Normal left side Deep tendon reflexes: Normal at the biceps. Normal at Brachioradialis. Normal at triceps Vertebral body tenderness to deep palpation over Cervical facet loading test: positive bilaterally Spurling test: positive bilaterally Neck distraction test: positive bilaterally Mohan sign: positive bilaterally Lumbar spine Motor strength lower extremities ,thigh and legs 5/5 Right side , 5/5 Left side Deep tendon reflexes : Normal Knee Jerk. Normal Ankle Jerk Vertebral body tenderness over L4 Ambriz Test positive Lumbar facet Loading Test: positive Right / positive Left Range of motion of the lumbar spine Flexion 30 degrees, extension 10 degrees Straight Leg Raise test: Left/ Right positive at < 35 degrees Aly test: positive right / positive left. Severe tenderness over the Sacroiliac joint on the Right / Left sides Gaenslen test: positive bilaterally Seated flexion test: positive bilaterally. Sacral spine : Severe tenderness over the Sacroiliac joint: right side / left side Range of motion: Flexion of the lumbar spine <60 degrees Range of motion: Extension of the lumbar spine <20 degrees Gaenslen's Test positive Aly test: positive right side / left side Thigh Thrust Test Sacral Thrust Test Imaging: MRI non contrast of the lumbar spine from 01/03/24 reviewed Assessment/ Plan : Lumbar radiculopathy Recommendation of HANNA L4-L5 #1. Risks, benefits of procedure discussed and pt verbalized understanding. Protocol for discontinuation/ continuation of medications manfred procedure discussed. All questions answered. I have spent greater than 30 minutes on patient care today. Dr Burton was available by phone for the evaluation of this patient. The time was used to review the medical records including relevant urine studies and Prescription history (MAPs), review of the available imaging, evaluation and examination of the patient, coordination of care with the medical staff and if applicable referring physicians, as well as creation of the medical record PQRS Narrative: Smoking Status Never smoker Hx Alcohol Use (MH) No Home Medications: Ambulatory Orders Celecoxib [CeleBREX] 200 mg PO DAILY 05/28/17 Montelukast [Singulair] 10 mg PO DAILY 05/28/17 Multivitamins, Thera [Multivitamin (formulary)] 1 tab PO DAILY 05/28/17 hydroCHLOROthiazide 25 mg PO DAILY 05/28/17 Ascorbic Acid [Vitamin C] 1,000 mg PO DAILY 01/07/22 Atorvastatin [Lipitor] 10 mg PO DAILY 01/07/22 Cholecalciferol [Vitamin D3 (25 Mcg = 1000 Iu)] 25 mcg PO DAILY 01/07/22 Omeprazole 20 mg PO DAILY 01/07/22 Vitamin B Complex 1 cap PO DAILY 01/07/22 lisinopriL [Zestril] 10 mg PO DAILY 01/07/22 Apixaban [Eliquis] 5 mg PO BID #60 tab 01/08/22 Albuterol Inhaler [Ventolin Hfa Inhaler] 2 puff INHALATION RT-QID PRN 03/13/22 Metoprolol Tartrate [Lopressor] 50 mg PO BID #60 tab 03/18/22 Pregabalin [Lyrica] 100 mg PO BID 04/12/24 Controlled Substance Measures - Controlled Substance Measures Is patient prescribed a controlled substance at discharge?: No
== END ==
LOC: PNWHC3 08:11
PROVIDERS: ATTEND Anesthesiology
DX: M54.16 Radiculopathy, lumbar region (principal)
CPT/HCPCS: 99211

== ENCOUNTER 2024-08-25 14:42 | Observation (INO) | payer MEDICAID ==
--- NOTE | 2024-08-25 15:13 | ED ---
General Adult HPI - General Chief complaint: Fall Stated complaint: Fall Time Seen by Provider: 08/25/24 14:56 Source: patient, EMS, RN notes reviewed Mode of arrival: EMS Limitations: no limitations - History of Present Illness Initial comments: Patient is a 64-year-old female presenting to the emergency department with a possible syncopal episode. Patient was walking outside and does not recall what happened next until she was hitting the ground. Patient struck her left shoulder. Patient does have moderate discomfort of her left shoulder and severe discomfort of her lower back. Patient does have history of disc problem. Patient denies any head injury. Patient denies headache or bump. Patient has a somewhat similar episode that happened around 6 or 7 weeks ago. No chest pain or dyspnea. Patient does have history of A-fib and is on anticoagulation. Patient did have previous ablation. No chest pain or dyspnea. No abdominal pain. - Related Data Home Medications Medication Instructions Recorded Confirmed Celecoxib [CeleBREX] 200 mg PO DAILY 05/28/17 04/13/24 Montelukast [Singulair] 10 mg PO DAILY 05/28/17 04/13/24 Multivitamins, Thera [Multivitamin 1 tab PO DAILY 05/28/17 04/13/24 (formulary)] hydroCHLOROthiazide 25 mg PO DAILY 05/28/17 04/13/24 Ascorbic Acid [Vitamin C] 1,000 mg PO DAILY 01/07/22 04/13/24 Atorvastatin [Lipitor] 10 mg PO DAILY 01/07/22 04/13/24 Cholecalciferol [Vitamin D3 (25 25 mcg PO DAILY 01/07/22 04/13/24 Mcg = 1000 Iu)] Omeprazole 20 mg PO DAILY 01/07/22 04/13/24 Vitamin B Complex 1 cap PO DAILY 01/07/22 04/13/24 lisinopriL [Zestril] 10 mg PO DAILY 01/07/22 04/13/24 Albuterol Inhaler [Ventolin Hfa 2 puff INHALATION RT-QID PRN 03/13/22 04/13/24 Inhaler] Pregabalin [Lyrica] 100 mg PO BID 04/12/24 04/13/24 Previous Rx's Medication Instructions Recorded Apixaban [Eliquis] 5 mg PO BID #60 tab 01/08/22 Metoprolol Tartrate [Lopressor] 50 mg PO BID #60 tab 03/18/22 Allergies Allergy/AdvReac Type Severity Reaction Status Date / Time No Known Allergies Allergy Verified 08/25/24 14:48 Review of Systems ROS Statement: Those systems with pertinent positive or pertinent negative responses have been documented in the HPI. ROS Other: All systems not noted in ROS Statement are negative. Constitutional: Denies: fever Eyes: Denies: eye pain ENT: Denies: ear pain Respiratory: Denies: cough, dyspnea Cardiovascular: Denies: chest pain Endocrine: Denies: fatigue Gastrointestinal: Denies: abdominal pain Genitourinary: Denies: dysuria Musculoskeletal: Reports: as per HPI, back pain Neurological: Denies: headache, weakness, confusion Past Medical History Past Medical History: Atrial Fibrillation, Asthma, GERD/Reflux, Hyperlipidemia, Hypertension, Osteoarthritis (OA), Sleep Apnea/CPAP/BIPAP Additional Past Medical History / Comment(s): uses CPAP History of Any Multi-Drug Resistant Organisms: None Reported Past Surgical History: Section, Cholecystectomy, Orthopedic Surgery, Uterine Ablation Additional Past Surgical History / Comment(s): rt wrist surgery with pin, colonoscopy, R knee sx Past Anesthesia/Blood Transfusion Reactions: Postoperative Nausea & Vomiting (PONV) Additional Past Anesthesia/Blood Transfusion Reaction / Comment(s): Claustrophobic. no hx blood transfusion Past Psychological History: No Psychological Hx Reported Smoking Status: Never smoker Past Alcohol Use History: None Reported Past Drug Use History: None Reported - Past Family History Father Family Medical History: Cancer Additional Family Medical History / Comment(s): colon cancer Mother Family Medical History: Congestive Heart Failure (CHF), COPD Sister(s) Additional Family Medical History / Comment(s): brain CA Brother(s) Family Medical History: Cancer Additional Family Medical History / Comment(s): Pancreatic CA, at 72 years old. General Exam Limitations: no limitations General appearance: alert, in no apparent distress Head exam: Present: atraumatic, normocephalic Eye exam: Present: normal appearance, PERRL, EOMI. Absent: nystagmus ENT exam: Present: normal oropharynx Neck exam: Present: normal inspection. Absent: tenderness Respiratory exam: Present: normal lung sounds bilaterally Cardiovascular Exam: Present: regular rate, normal rhythm, normal heart sounds Expanded Peripheral pulses: 2+: Radial (R), Radial (L), Posterior Tibialis (R), Posterior Tibialis (L) GI/Abdominal exam: Present: soft. Absent: tenderness Extremities exam: Present: normal inspection. Absent: pedal edema, calf tenderness Neurological exam: Present: alert, oriented X3, CN II-XII intact. Absent: motor sensory deficit Expanded Neurological exam: Present: protecting the airway Speech: Present: fluid speech Cranial nerves: EOM's Intact: Normal Motor strength exam: RUE: 5, LUE: 5, RLE: 5, LLE: 5 Eye Response: (4) open spontaneously Motor Response: (6) obeys commands Verbal Response: (5) oriented Psychiatric exam: Present: normal affect, normal mood Skin exam: Present: normal color Course Vital Signs 08/25/24 08/25/24 14:44 16:09 Temperature 98.4 F Pulse Rate 60 54 L Respiratory 18 18 Rate Blood Pressure 154/82 140/59 O2 Sat by Pulse 96 99 Oximetry EKG Findings - EKG Results: EKG: interpreted by ERMD, sinus rhythm, normal axis, normal QRS, normal ST/T EKG shows: bradycardia Medical Decision Making - Medical Decision Making MDM was pt. sent in by a medical professional or institution (, PA, [employer]ER, urgent care, hospital, or retirement...) When possible be specific @ -No Did you speak to anyone other than the patient for history (EMS, parent, family, police, friend...)? What history was obtained from this source @ -Family arrives and helps provide history of previous back problems Did you review nursing and triage notes (agree or disagree)? Why? @ -I reviewed and agree with nursing and triage notes Were old charts reviewed (outside hosp., previous admission, EMS record, old EKG, old radiological studies, urgent care reports/EKG's, retirement records)? Report findings @ -No old charts were reviewed Differential Diagnosis (chest pain, altered mental status, abdominal pain women, abdominal pain men, vaginal bleeding, weakness, fever, dyspnea, syncope, h eadache, dizziness, GI bleed, back pain, seizure, CVA, palpatations, mental health, musculoskeletal)? @ -M differential syncope differential Syncope: Valvular disease, hypertrophic cardiomyopathy, pulmonary embolism, tamponade, tachycardia, bradycardia, HI, hypovolemia, hemorrhage, dissection, anemia, intracranial hemorrhage, seizure, hypoglycemia, carbon monoxide poisoning, this is not meant to be an all-inclusive list. EKG interpreted by me (3pts min.). @ -As above X-rays interpreted by me (1pt min.). @ -Chest x-ray does not reveal acute abnormality. CT interpreted by me (1pt min.). @ -CT scan of brain does not reveal acute abnormality. CT lumbar spine shows degenerative and chronic changes U/S interpreted by me (1pt. min.). @ -None done What testing was considered but not performed or refused? (CT, X-rays, U/S, labs)? Why? @ -CT scan of chest will be added What meds were considered but not given or refused? Why? @ -None Did you discuss the management of the patient with other professionals (professionals i.e. , PA, [employer]ER, lab, RT, psych nurse, director social welfare, military lawyer, teacher, strike operations officer, onsite case manager)? Give summary @ -Case discussed with practitioner Nathalie Feng covering Dr. Fuentes who will admit covering Dr. Jay Was smoking cessation discussed for >3mins.? @ -No Was critical care preformed (if so, how long)? @ -No Were there social determinants of health that impacted care today? How? (Homelessness, low income, unemployed, alcoholism, drug addiction, tr ansportation, low edu. Level, literacy, decrease access to med. care, halfway, rehab)? @ -No Was there de-escalation of care discussed even if they declined (Discuss DNR or withdrawal of care, Hospice)? DNR status @ -No What co-morbidities impacted this encounter? (DM, HTN, Smoking, COPD, CAD, Cancer, CVA, ARF, Chemo, Hep., AIDS, mental health diagnosis, sleep apnea, morbid obesity)? @ -Previous syncopal episode Was patient admitted / discharged? Hospital course, mention meds given and route, prescriptions, significant lab abnormalities, going to OR and other pertinent info. @ -Patient presents with what appears to be a syncopal episode. Patient had a similar episode several weeks to 2 months ago. Patient will be admitted for further evaluation, CT scan of the chest will be ordered as well. Admission orders written. Cardiac consult will be placed. Undiagnosed new problem with uncertain prognosis? @ -No Drug Therapy requiring intensive monitoring for toxicity (Heparin, Nitro, Insu praveen, Cardizem)? @ -No Were any procedures done? @ -No Diagnosis/symptom? @ -Syncope Acute, or Chronic, or Acute on Chronic? @ -Acute Uncomplicated (without systemic symptoms) or Complicated (systemic symptoms)? @ -Default Side effects of treatment? @ -No Exacerbation, Progression, or Severe Exacerbation? @ -No Poses a threat to life or bodily function? How? (Chest pain, USA, HI, pneumonia, PE, COPD, DKA, ARF, appy, cholecystitis, CVA, Diverticulitis, Homicidal, Suicidal, threat to staff... and all critical care pts) @ -No - Lab Data Result diagrams: 08/25/24 15:38 08/25/24 15:38 Lab Results 08/25/24 08/25/24 08/25/24 Range/Units 15:38 15:38 15:38 WBC 8.1 (3.8-10.6) k/uL RBC 4.11 (3.80-5.40) m/uL Hgb 12.8 (11.4-16.0) gm/dL Hct 37.7 (34.0-46.0) % MCV 91.8 (80.0-100.0) fL MCH 31.1 (25.0-35.0) pg MCHC 33.9 (31.0-37.0) g/dL RDW 14.2 (11.5-15.5) % Plt Count 178 (150-450) k/uL MPV 8.5 Neutrophils % 75 % Lymphocytes % 16 % Monocytes % 5 % Eosinophils % 2 % Basophils % 1 % Neutrophils # 6.0 (1.3-7.7) k/uL Lymphocytes # 1.3 (1.0-4.8) k/uL Monocytes # 0.4 (0-1.0) k/uL Eosinophils # 0.1 (0-0.7) k/uL Basophils # 0.0 (0-0.2) k/uL PT 10.6 (10.0-12.5) sec INR 1.0 (<1.2) APTT 26.9 (22.0-30.0) sec D-Dimer 0.70 H (<0.60) mg/L FEU Sodium 139 (137-145) mmol/L Potassium 4.0 (3.5-5.1) mmol/L Chloride 107 (98-107) mmol/L Carbon Dioxide 28 (22-30) mmol/L Anion Gap 4 mmol/L BUN 17 (7-17) mg/dL Creatinine 0.73 (0.52-1.04) mg/dL Est GFR (CKD-EPI)AfAm >90 (>60 ml/min/1.73 sqM) Est GFR (CKD-EPI)NonAf 89 (>60 ml/min/1.73 sqM) Glucose 114 H (74-99) mg/dL Calcium 9.4 (8.4-10.2) mg/dL Magnesium 1.8 (1.6-2.3) mg/dL Total Bilirubin 0.7 (0.2-1.3) mg/dL AST 30 (14-36) U/L ALT 29 (4-34) U/L Alkaline Phosphatase 116 (38-126) U/L Troponin I (0.000-0.034) ng/mL Total Protein 6.6 (6.3-8.2) g/dL Albumin 3.9 (3.5-5.0) g/dL 08/25/24 Range/Units 15:38 WBC (3.8-10.6) k/uL RBC (3.80-5.40) m/uL Hgb (11.4-16.0) gm/dL Hct (34.0-46.0) % MCV (80.0-100.0) fL MCH (25.0-35.0) pg MCHC (31.0-37.0) g/dL RDW (11.5-15.5) % Plt Count (150-450) k/uL MPV Neutrophils % % Lymphocytes % % Monocytes % % Eosinophils % % Basophils % % Neutrophils # (1.3-7.7) k/uL Lymphocytes # (1.0-4.8) k/uL Monocytes # (0-1.0) k/uL Eosinophils # (0-0.7) k/uL Basophils # (0-0.2) k/uL PT (10.0-12.5) sec INR (<1.2) APTT (22.0-30.0) sec D-Dimer (<0.60) mg/L FEU Sodium (137-145) mmol/L Potassium (3.5-5.1) mmol/L Chloride (98-107) mmol/L Carbon Dioxide (22-30) mmol/L Anion Gap mmol/L BUN (7-17) mg/dL Creatinine (0.52-1.04) mg/dL Est GFR (CKD-EPI)AfAm (>60 ml/min/1.73 sqM) Est GFR (CKD-EPI)NonAf (>60 ml/min/1.73 sqM) Glucose (74-99) mg/dL Calcium (8.4-10.2) mg/dL Magnesium (1.6-2.3) mg/dL Total Bilirubin (0.2-1.3) mg/dL AST (14-36) U/L ALT (4-34) U/L Alkaline Phosphatase (38-126) U/L Troponin I <0.012 (0.000-0.034) ng/mL Total Protein (6.3-8.2) g/dL Albumin (3.5-5.0) g/dL Disposition Clinical Impression: Syncope Disposition: ADMITTED IP TO THIS HOSP Is patient prescribed a controlled substance at d/c from ED?: No Referrals: Clint Stiles MD [Primary Care Provider] - 1-2 days Time of Disposition: 19:18
--- NOTE | 2024-08-25 15:53 | XR ---
EXAMINATION TYPE: XR chest 2V DATE OF EXAM: 08/25/2024 COMPARISON: 09/05/2022 HISTORY: Syncope TECHNIQUE: Frontal and lateral views of the chest are obtained. FINDINGS: There is no focal air space opacity, pleural effusion, or pneumothorax seen. The cardiac silhouette size is within normal limits. The osseous structures are intact. IMPRESSION: No acute cardiopulmonary process. [facility], Workstation: ARIN 08/25/2024 3:51 PM
[2024-08-25 15:55] LABS: Basophils % (A) 1 %; Eosinophils # (A) 0.1 k/uL (0-0.7); Eosinophils % (A) 2 %; HCT 37.7 % (34.0-46.0); HGB 12.8 gm/dL (11.4-16.0); Lymphocytes # (A) 1.3 k/uL (1.0-4.8); Lymphocytes % (A) 16 %; MCH 31.1 pg (25.0-35.0); MCHC 33.9 g/dL (31.0-37.0); MCV 91.8 fL (80.0-100.0); Mean Platelet Volume 8.5; Monocytes # (A) 0.4 k/uL (0-1.0); Monocytes % (A) 5 %; Neutrophils % (A) 75 %; Platelet Count 178 k/uL (150-450); RBC 4.11 m/uL (3.80-5.40); RDW 14.2 % (11.5-15.5); WBC 8.1 k/uL (3.8-10.6)
[2024-08-25] MEDS: SODIUM CHLORIDE 0.9% 1,000 ML IV STA (16:06)
[2024-08-25 16:08] LABS: ALT 29 U/L (4-34); AST 30 U/L (14-36); African American GFR (CKD) >90 (>60 ml/min/1.73 sqM); Albumin 3.9 g/dL (3.5-5.0); Alkaline Phosphatase 116 U/L (38-126); Anion Gap 4 mmol/L; Blood Urea Nitrogen 17 mg/dL (7-17); Calcium 9.4 mg/dL (8.4-10.2); Carbon Dioxide 28 mmol/L (22-30); Chloride 107 mmol/L (98-107); Glucose 114 mg/dL (74-99); Magnesium 1.8 mg/dL (1.6-2.3); Non-African American GFR(CKD) 89 (>60 ml/min/1.73 sqM); Sodium 139 mmol/L (137-145); Total Bilirubin 0.7 mg/dL (0.2-1.3); Total Protein 6.6 g/dL (6.3-8.2)
--- NOTE | 2024-08-25 16:18 | CT ---
EXAMINATION TYPE: CT brain wo con DATE OF EXAM: 08/25/2024 COMPARISON: None HISTORY: Fell CT DLP: 1138.9 mGycm Automated exposure control for dose reduction was used. Findings: The ventricles, basal cisterns and sulci over the convexities are within normal limits and there is n o mass effect or shift of midline structures. No abnormal density is seen throughout the brain parenchyma and there is no acute intra or extra-axia l hemorrhage. The posterior fossa including the brainstem, fourth ventricle and cerebellar pontine angles appear no rmal. Intraorbital contents appear normal and symmetric. Visualized paranasal sinuses and mastoid air cells are well aerated. The calvarium is intact. IMPRESSION: No significant abnormality seen. There is no acute bleed or mass effect. [facility], Workstation: ARIN 08/25/2024 4:16 PM
[2024-08-25 16:19] LABS: Partial Thromboplastin Time 26.9 sec (22.0-30.0); Prothrombin Time 10.6 sec (10.0-12.5)
--- NOTE | 2024-08-25 16:22 | CT ---
EXAMINATION TYPE: CT lumbar spine wo con DATE OF EXAM: 08/25/2024 4:09 PM COMPARISON: None HISTORY: fell CT DLP: 3097 mGycm Automated exposure control for dose reduction was used. Unenhanced CT of the lumbar spine was performed. Bone and soft tissue window settings are submitted as well as coronal and sagittal reconstructions. Findings: The lumbar vertebral segments are normal in height. There is a slight anterolisthesis of L3 on L4. The disc spaces are well preserved. There is mild to moderate spondylosis throughout the lumbar regio n and lower thoracic region indicating mild degenerative disc disease. There is moderate to marked facet arthropathy at the L4-5 level and mild facet arthropathy at the L2- 3, L3-4 and L5-S1 levels. Secondary to disc bulge, facet hypertrophy and thickening of ligamentum flavum, there is moderate spi nal stenosis at the L4-5 level and mild spinal stenosis at the L2-3 and L3-4 levels. Visualized sacrum and SI joints normal. The paraspinal soft tissues are unremarkable. IMPRESSION: 1. No lumbar spine fracture. 2. Slight anterolisthesis of L4 on L5. 3. The disc spaces are well-preserved. 4. Multilevel facet arthropathy moderate to severe at the L4-5 level. 5. Multilevel spinal stenosis moderate at the L4-5 level and mild at the L2-3 and L3-4 levels. [facility], , 08/25/2024 4:20 PM
[2024-08-25] MEDS: KETOROLAC 15 MG/ML 1 ML VIAL IVP STA (18:42)
[2024-08-25] MEDS ORDERED: NALOXONE 0.4 MG/ML 1 ML VIAL IV PRN (19:15)
[2024-08-25] MEDS ORDERED: MORPHINE SULFATE 4 MG/ML SYRINGE IV PRN (19:15)
[2024-08-25] MEDS: FAMOTIDINE 20 MG TAB PO SCH (20:34)
--- NOTE | 2024-08-25 21:22 | XR ---
EXAMINATION TYPE: XR shoulder complete LT DATE OF EXAM: 08/25/2024 7:33 PM CLINICAL INDICATION:Female, 64 years old with history of pain; [facility] COMPARISON: TECHNIQUE: XR shoulder complete LT; shoulder was examined in AP, internally rotated and scapular Y p rojections. FINDINGS: Mild/moderate degenerative changes of the AC and glenohumeral joints. No evidence of acute fracture o r dislocation. Unremarkable soft tissues are seen. IMPRESSION: No acute osseous pathology. [facility], , 08/25/2024 9:19 PM
--- NOTE | 2024-08-25 22:05 | CT ---
EXAMINATION TYPE: CT angio chest CT DLP: 1068.8 mGycm, Automated exposure control for dose reduction was used. DATE OF EXAM: 08/25/2024 7:47 PM COMPARISON: Earlier same day chest x-ray CLINICAL INDICATION:Female, 64 years old with history of syncope; Syncope. TECHNIQUE/CONTRAST: CTA scan of the thorax is performed with IV Contrast, patient injected with 100 ml mL of Isovue 370, MIP images are created and reviewed these are created on a separate workstation.. FINDINGS: Study is limited related to patient body habitus and poor [id number]. No pulmonary embolus is demonstrated. The pulmonary trunk does not appear enlarged. Heart is mildly to moderately enlarged. Pericardial fat is prominent. Aorta appears nonaneurysmal without evidence of dissection flap seen. Central airways are patent. There is no mediastinal hematoma or adenopathy demonstrated. Visualized t hyroid is grossly unremarkable. Lungs demonstrate mild congestive changes without focal consolidation, pleural effusion, or pneumotho rax. Possible minimal emphysematous changes. Limited cuts through the upper abdomen show no mass of the visualized adrenals. There are cholecystec alexandre clips. Moderate degenerative changes throughout the visualized spine. No acute bony pathology evident. IMPRESSION: 1. No clear evidence of pulmonary embolus or other acute chest process. 2. Mild cardiomegaly with mild congestive changes suggested. 3. Other chronic and likely incidental findings, as described above. [facility], , 08/25/2024 10:03 PM
[2024-08-25] MEDS: ACETAMINOPHEN TAB 325 MG TAB PO PRN (23:36)
[2024-08-26 02:30] LABS: Basophils % (A) 0 %; Eosinophils # (A) 0.1 k/uL (0-0.7); Eosinophils % (A) 2 %; HCT 36.7 % (34.0-46.0); Lymphocytes # (A) 1.7 k/uL (1.0-4.8); Lymphocytes % (A) 25 %; MCH 30.4 pg (25.0-35.0); MCHC 32.7 g/dL (31.0-37.0); MCV 92.8 fL (80.0-100.0); Mean Platelet Volume 8.9; Monocytes # (A) 0.5 k/uL (0-1.0); Monocytes % (A) 7 %; Neutrophils # (A) 4.5 k/uL (1.3-7.7); Neutrophils % (A) 64 %; Platelet Count 168 k/uL (150-450); RBC 3.95 m/uL (3.80-5.40); RDW 14.4 % (11.5-15.5)
[2024-08-26 02:43] LABS: ALT 28 U/L (4-34); AST 27 U/L (14-36); African American GFR (CKD) 80 (>60 ml/min/1.73 sqM); Albumin 3.6 g/dL (3.5-5.0); Albumin/Globulin Ratio 1.4; Alkaline Phosphatase 96 U/L (38-126); Anion Gap 4 mmol/L; Blood Urea Nitrogen 21 mg/dL (7-17); Calcium 9.4 mg/dL (8.4-10.2); Carbon Dioxide 27 mmol/L (22-30); Chloride 106 mmol/L (98-107); Globulin 2.6 g/dL; Glucose 121 mg/dL (74-99); Non-African American GFR(CKD) 70 (>60 ml/min/1.73 sqM); Potassium 4.4 mmol/L (3.5-5.1); Sodium 137 mmol/L (137-145); Total Bilirubin 0.6 mg/dL (0.2-1.3); Total Protein 6.2 g/dL (6.3-8.2)
[2024-08-26] MEDS: KETOROLAC 15 MG/ML 1 ML VIAL IVP PRN (03:32)
[2024-08-26] MEDS: MELOXICAM 7.5 MG TAB PO SCH (08:08)
[2024-08-26] MEDS: PANTOPRAZOLE 40 MG TABLET PO SCH (08:08)
[2024-08-26] MEDS: PREGABALIN 100 MG CAP PO SCH (08:08)
[2024-08-26] MEDS: APIXABAN 5 MG TAB PO SCH (08:08)
[2024-08-26] MEDS: MONTELUKAST 10 MG TAB PO SCH (08:08)
[2024-08-26] MEDS: ATORVASTATIN 10 MG TAB PO SCH (08:08)
[2024-08-26] MEDS: METOPROLOL SUCCINATE (ER) 50 MG TAB.ER.24H PO SCH (08:08)
--- NOTE | 2024-08-26 11:25 | CA ---
Transthoracic Echo Report Name: Maggie Wilburn Age: 64 Gender: F : 1960 Exam Date: 08/26/2024 10:04 Exam Location: [facility] Ht (in): 65 Wt (lb): 340 Ordering Physician: Apurva Steinberg MD Attending/Referring Phys: [employer] Ana Rosa Cool RDCS Procedure CPT: Indications: Syncope Cardiac Hx: Technical Quality: Technically difficult study Contrast 1: Definity Total Dose (mL): 2 Contrast 2: Total Dose (mL): MEASUREMENTS (Male / Female) Normal Values 2D ECHO LV Diastolic Diameter PLAX 5.5 cm 4.2 - 5.9 / 3.9 - 5.3 cm LV Systolic Diameter PLAX 3.8 cm IVS Diastolic Thickness 0.8 cm 0.6 - 1.0 / 0.6 - 0.9 cm LVPW Diastolic Thickness 1.2 cm 0.6 - 1.0 / 0.6 - 0.9 cm LV Relative Wall Thickness 0.4 LVOT Diameter 2.1 cm Ascending Aorta Diameter 3.1 cm M-MODE LV Diastolic Diameter MM 5.7 cm 4.2 - 5.9 / 3.9 - 5.3 cm LV Systolic Diameter MM 3.8 cm LV Cardiac Index MM Teich 3556.1 cm???/min???m??? IVS Diastolic Thickness MM 1.0 cm 0.6 - 1.0 / 0.6 - 0.9 cm LVPW Diastolic Thickness MM 1.3 cm 0.6 - 1.0 / 0.6 - 0.9 cm LV Relative Wall Thickness MM 0.4 0.24 - 0.42 / 0.22 - 0.42 LV Mass Index MM 108.2 g/m??? 49 - 115 / 43 - 95 g/m??? DOPPLER AV Peak Velocity 132.8 cm/s AV Peak Gradient 7.1 mmHg AV Mean Velocity 92.0 cm/s AV Mean Gradient 3.8 mmHg AV Velocity Time Integral 25.1 cm LVOT Peak Velocity 117.4 cm/s LVOT Peak Gradient 5.5 mmHg LVOT Velocity Time Integral 23.0 cm LVOT Stroke Volume 80.4 cm??? LVOT Stroke Volume Index 32.4 ml/m??? LVOT Cardiac Index 2825.2 cm???/min???m??? AV Area Cont Eq vti 3.2 cm??? AV Area Cont Eq pk 3.1 cm??? PV Peak Velocity 81.1 cm/s PV Peak Gradient 2.6 mmHg FINDINGS Left Ventricle Left ventricular ejection fraction is estimated at 55-60 %. Mildly increased left ventricular mass. Mildly increased septal wall thickness. Mildly increased posterior wall thickness. Mildly increased left ventricular diastolic diameter. No obvious regional wall motion abnormalities. Right Ventricle Normal right ventricular size and function. Unable to estimate the right ventricular systolic pressure. Right Atrium Right atrium not well visualized. Left Atrium Normal left atrial size. Mitral Valve Structurally normal mitral valve. No mitral stenosis, regurgitation or prolapse. Aortic Valve Trileaflet aortic valve. No aortic valve stenosis or regurgitation. Tricuspid Valve Structurally normal tricuspid valve. No tricuspid stenosis, regurgitation or prolapse. Pulmonic Valve Pulmonic valve not well visualized. No pulmonic stenosis. No pulmonic regurgitation. Pericardium No pericardial effusion. Prominent epicardial fat. Aorta Normal size aortic root and proximal ascending aorta. CONCLUSIONS Left ventricular ejection fraction is estimated at 55-60 %. No obvious regional wall motion abnormalities. Mild concentric LVH no significant valve abnormality No pericardial effusion Previewed by: Dr Donald Croft (Electronically Signed) Final Date: 26 August 2024 11:25
--- NOTE | 2024-08-26 12:27 | P.CRDCN ---
History of Present Illness Consult date: 08/26/24 History of present illness: HISTORY OF PRESENTING ILLNESS Patient is a 64-year-old female who is known to Dr. Lazo. She has a past medical history of atrial fibrillation status post ablation. This time she presents the hospital because of concerns of syncope. Patient reports that she was trying to get down on her porch. The last thing she remembers is trying to get down. The next and she remembers is hitting her head on a box of Pepsi. She did not lose bowel bladder control. She has not been feeling lightheaded dizzy lately. She denies any palpitation before the event or after the event. She denies any chest pain chest pressure. She had 1 more episode of passing out very similar short duration in June 2024. At that time she had a CT of her back which was negative and she was discharged from the ER. This was at [facility] as per the patient. Admission ECG does not show any significant signs of ST or T wave changes concerning of ischemia. Sinus bradycardia heart rate 53, PMH: Patient denies any prior history of PCI, open heart surgery, strokes, diabetes, COPD Social history: Patient denies any smoking, recreational drug use marijuana use or alcohol use. She does report drinking significant amount of Pepsi. She drinks 2 Pepsi's 16 ozevery day. REVIEW OF SYSTEMS 14 point review of system is negative except what is mentioned above in HPI. PHYSICAL EXAMINATION Vital signs reviewed. Head: Normocephalic. Eyes: Sclerae nonicteric. Neck: Brisk carotid upstroke, no jugular venous distention. Lungs: Clear to auscultation. Heart: Regular rate and rhythm, S1-S2, no S3, no murmur or rub. Abdomen: Soft nontender, positive bowel sounds. Extremities: No edema, intact distal pulses. Neuro: Alert, oritented, no focal deficits. Detailed neuro exam was not performed. ASSESSMENT Syncope A-fib status post ablation Morbid obesity Excessive caffeine use Echocardiogram showed an EF of 55% with no major valvular abnormalities. No concerns of LVOT obstruction or aortic stenosis. CTA chest did not show any evidence of PE or any signs of pulmonary congestion PLAN Obtain orthostatic vital signs Continue Eliquis 5 mg twice daily. No concerns of active bleeding. Continue other home medications. Patient's telemetry sinus arrhythmia. Her heart rates are ranging from high 40s to 80s. Would recommend outpatient 14-day [employer] heart monitor to be picked up from [facility] on Wednesday. I have given instructions to the patient how to do so. Recommend no driving Follow-up with Dr. Lazo in next 3 weeks (1 week after [employer] monitor is turned back) If orthostatic vital signs are normal, patient is okay to be discharged on current medication regimen. Donald Croft MD, FACC, RPVI Thank you for allowing [facility] to participate in this patient's care. Feel free to reach out in case of any followup questions. Past Medical History Past Medical History: Atrial Fibrillation, Asthma, GERD/Reflux, Hyperlipidemia, Hypertension, Osteoarthritis (OA), Sleep Apnea/CPAP/BIPAP Additional Past Medical History / Comment(s): uses CPAP History of Any Multi-Drug Resistant Organisms: None Reported Past Surgical History: Section, Cholecystectomy, Orthopedic Surgery, Uterine Ablation Additional Past Surgical History / Comment(s): rt wrist surgery with pin, colonoscopy, R knee sx Past Anesthesia/Blood Transfusion Reactions: Postoperative Nausea & Vomiting (PONV) Additional Past Anesthesia/Blood Transfusion Reaction / Comment(s): Claustrophobic. no hx blood transfusion Past Psychological History: No Psychological Hx Reported Smoking Status: Never smoker Past Alcohol Use History: None Reported Past Drug Use History: None Reported - Past Family History Father Family Medical History: Cancer Additional Family Medical History / Comment(s): colon cancer Mother Family Medical History: Congestive Heart Failure (CHF), COPD Sister(s) Additional Family Medical History / Comment(s): brain CA Brother(s) Family Medical History: Cancer Additional Family Medical History / Comment(s): Pancreatic CA, at 72 years old. Medications and Allergies Home Medications Medication Instructions Recorded Confirmed Type Celecoxib [CeleBREX] 200 mg PO DAILY 05/28/17 08/25/24 History Montelukast [Singulair] 10 mg PO DAILY 05/28/17 08/25/24 History hydroCHLOROthiazide 25 mg PO DAILY 05/28/17 08/25/24 History Atorvastatin [Lipitor] 10 mg PO DAILY 01/07/22 08/25/24 History Omeprazole 20 mg PO DAILY 01/07/22 08/25/24 History Apixaban [Eliquis] 5 mg PO BID #60 tab 01/08/22 08/25/24 Rx Pregabalin [Lyrica] 100 mg PO BID 04/12/24 08/25/24 History Metoprolol Succinate (ER) [Toprol 50 mg PO DAILY 08/25/24 08/25/24 History Xl] lisinopriL [Zestril] 10 mg PO HS 08/25/24 08/25/24 History Allergies Allergy/AdvReac Type Severity Reaction Status Date / Time No Known Allergies Allergy Verified 08/25/24 19:31 Physical Exam Vitals: Vital Signs Temp Pulse Pulse Pulse Resp BP BP 08/26/24 07:00 97.7 F 83 16 120/79 08/26/24 02:00 97.6 F 51 L 18 125/64 08/25/24 22:16 47 L 18 138/72 08/25/24 20:35 47 L 18 155/75 08/25/24 16:09 54 L 18 140/59 08/25/24 14:44 98.4 F 60 18 154/82 Pulse Ox 08/26/24 07:00 94 L 08/26/24 02:00 96 08/25/24 22:16 99 08/25/24 20:35 99 08/25/24 16:09 99 08/25/24 14:44 96 Intake and Output 08/25/24 08/26/24 08/26/24 22:59 06:59 14:59 Intake Total 118 Balance 118 Intake: Oral 118 Other: # Voids 2 1 Weight 154.221 kg Results 08/26/24 02:00 08/26/24 02:00 Cardiac Enzymes 08/25/24 08/25/24 08/25/24 Range/Units 15:38 15:38 21:01 AST 30 (14-36) U/L Troponin I <0.012 <0.012 (0.000-0.034) ng/mL 08/26/24 08/26/24 Range/Units 01:39 02:00 AST 27 (14-36) U/L Troponin I <0.012 (0.000-0.034) ng/mL Coagulation 08/25/24 Range/Units 15:38 PT 10.6 (10.0-12.5) sec APTT 26.9 (22.0-30.0) sec CBC 08/25/24 08/26/24 Range/Units 15:38 02:00 WBC 8.1 7.0 (3.8-10.6) k/uL RBC 4.11 3.95 (3.80-5.40) m/uL Hgb 12.8 12.0 (11.4-16.0) gm/dL Hct 37.7 36.7 (34.0-46.0) % Plt Count 178 168 (150-450) k/uL Comprehensive Metabolic Panel 08/25/24 08/26/24 Range/Units 15:38 02:00 Sodium 139 137 (137-145) mmol/L Potassium 4.0 4.4 (3.5-5.1) mmol/L Chloride 107 106 (98-107) mmol/L Carbon Dioxide 28 27 (22-30) mmol/L BUN 17 21 H (7-17) mg/dL Creatinine 0.73 0.89 (0.52-1.04) mg/dL Glucose 114 H 121 H (74-99) mg/dL Calcium 9.4 9.4 (8.4-10.2) mg/dL AST 30 27 (14-36) U/L ALT 29 28 (4-34) U/L Alkaline Phosphatase 116 96 (38-126) U/L Total Protein 6.6 6.2 L (6.3-8.2) g/dL Albumin 3.9 3.6 (3.5-5.0) g/dL Current Medications Generic Name Dose Route Start Last Admin Trade Name Freq PRN Reason Stop Dose Admin Acetaminophen 650 mg 08/25/24 19:15 08/25/24 23:36 Acetaminophen Tab 325 Mg Tab PO 650 mg Q6HR PRN Administration Mild Pain or Fever > 100.5 Apixaban 5 mg 08/26/24 09:00 08/26/24 08:08 Apixaban 5 Mg Tab PO 5 mg BID REUBEN Administration Protocol Atorvastatin Calcium 10 mg 08/26/24 09:00 08/26/24 08:08 Atorvastatin 10 Mg Tab PO 10 mg DAILY REUBEN Administration Famotidine 20 mg 08/25/24 21:00 08/26/24 08:08 Famotidine 20 Mg Tab PO 20 mg BID REUBEN Administration Lisinopril 10 mg 08/26/24 21:00 Lisinopril 10 Mg Tab PO HS [facility] Meloxicam 7.5 mg 08/26/24 09:00 08/26/24 08:08 Meloxicam 7.5 Mg Tab PO 7.5 mg DAILY REUBEN Administration Metoprolol Succinate 50 mg 08/26/24 09:00 08/26/24 08:08 Metoprolol Succinate (Er) 50 Mg Tab.Er.24h PO 50 mg DAILY REUBEN Administration Montelukast Sodium 10 mg 08/26/24 09:00 08/26/24 08:08 Montelukast 10 Mg Tab PO 10 mg DAILY REUBEN Administration Morphine Sulfate 4 mg 08/25/24 19:15 Morphine Sulfate 4 Mg/Ml Syringe IV Q4HR PRN Severe Pain (Scale 7 to 10) Naloxone HCl 0.2 mg 08/25/24 19:15 Naloxone 0.4 Mg/Ml 1 Ml Vial IV Q2M PRN Opioid Reversal Pantoprazole Sodium 40 mg 08/26/24 09:00 08/26/24 08:08 Pantoprazole 40 Mg Tablet PO 40 mg DAILY REUBEN Administration Pregabalin 100 mg 08/26/24 09:00 08/26/24 08:08 Pregabalin 100 Mg Cap PO 100 mg BID REUBEN Administration Tramadol HCl 50 mg 08/25/24 19:15 Tramadol 50 Mg Tab PO Q6H PRN Moderate Pain (Scale 4 to 6) Intake and Output 08/25/24 08/26/24 08/26/24 22:59 06:59 14:59 Intake Total 118 Balance 118 Intake: Oral 118 Other: # Voids 2 1 Weight 154.221 kg 08/26/24 02:00 08/26/24 02:00
--- NOTE | 2024-08-26 15:39 | P.HPIM ---
History of Present Illness H&P Date: 08/26/24 Chief Complaint: syncope Patient is a 64-year-old female with atrial fibrillation (on Eliquis) status post ablation x 2, asthma, GERD, hyperlipidemia, hypertension, sleep apnea on CPAP/BiPAP presenting with possible syncopal episode. Patient states as she was trying to get down from her porch, and next thing she knew she woke up on the ground. She denies any head trauma, and states that her shoulder hit a box of Pepsi cans. She states her back also hurt after the fall as well. There were no witnesses to this fall. She does not remember any preceding incidents or triggers that may have occurred before falling. Denies any cough or straining preceding the incident, or wearing any tight clothing. She had a previous episode of falling in June 2024 at [facility]. There was a witness at this incident and there was no evidence of any seizing. CT of the back was done and it was negative and was discharged from the ER. Patient denies any history of seizure. Denies any fever, chills, weakness, headache, lightheadedness, confusion, chest pain, shortness of breath, cough, abdominal pain, nausea, vomiting, constipation. EKG independently interpreted displays sinus bradycardia, rate 53 bpm, QTc [address] displays no significant abnormality seen, no acute bleed or mass effect Chest CTA displays no clear evidence of pulmonary embolus or other acute chest process, mild cardiomegaly CXR independently interpreted displays no acute cardiopulmonary process Shoulder x-ray displays no acute osseous pathology Lumbar spine CT displays no lumbar spine fracture, slight anterior listhesis of L4 on L5, disc spaces well-preserved D-dimer 0.70, troponin <0.012 x 3, WBC 8.1, Hgb 12.8, platelets 178, INR 1.0, sodium 139, potassium 4.0, CO2 28, BUN 4, creatinine 0.7, glucose 114. T97.7 F, IL 51, BP 120/79, O2 sat 94% on room air ED documentation reviewed. Review of systems: Pertinent positives and negatives as discussed in HPI, a complete review of systems was performed and all other systems are negative. Physical examination: Vital signs reviewed General: non toxic, no distress, appears at stated age, obese Derm: no unusual rashes/lesions, warm Head: atraumatic, normocephalic, symmetric Eyes: EOMI, anicteric sclera, pupils equal round reactive to light ENT: Nose and ears atraumatic Neck: No cervical lymphadenopathy, trachea midline, supple Mouth: no lip lesion, mucus membranes moist Cardiovascular: S1S2 reg, no murmur, positive dorsalis pedis pulse bilateral, no edema Lungs: CTA bilateral, no rhonchi, no rales, no accessory muscle use Abdominal: soft, nontender to palpation, no guarding Ext: muscle strength 5 out of 5 in all 4 extremities grossly, no gross muscle atrophy Neuro: CN II-XI grossly intact, no gross focal neuro deficits Psych: Alert, oriented to person, place, and time Assessment/Plan: Patient is a 64-year-old female with atrial fibrillation, asthma, GERD, h yperlipidemia, hypertension, sleep apnea on CPAP/BiPAP presenting with possible syncopal episode. #. Suspected syncopal episode Cardiogenic versus noncardiogenic Rule out seizure D-dimer 0.70, troponin, <0.012 x 3, WBC 8.1, Hgb 12.8, sodium 139, Glucose 114 EKG independently interpreted displays sinus bradycardia, rate 53 bpm, QTc [address] displays no significant abnormality seen, no acute bleed or mass effect Chest CTA displays no clear evidence of pulmonary embolus or other acute chest process, mild cardiomegaly CXR independently interpreted displays no acute cardiopulmonary process Neurochecks Seizure precautions Fall precaution Check orthostatic vital sign Echocardiogram ordered Cardiology monitoring Cardiology consulted. Note read, see below. Advised not to drive EEG ordered #. Sinus bradycardia Patient telemetry sinus arrhythmia, her heart rate ranging from high 40s to 80s Cardiology recommending outpatient 14-day for evidence heart monitor to be picked up back [facility] on Wednesday #. Atrial fibrillation, on Eliquis Continue Eliquis 5 mg twice daily Continue metoprolol succinate 50 mg p.o. daily #. Hyperlipidemia Continue atorvastatin 10 mg p.o. daily #. Hypertension Continue with lisinopril 10 mg p.o. at bedtime #. History of asthma Continue with Singulair 10 mg p.o. daily #. Chronic back pain Pregabalin 100 mg p.o. twice daily Acetaminophen tab 650 mg p.o. every 6 HR as needed Tramadol 50 mg p.o. every 6 hours as needed Mobic 7.5 mg p.o. daily #. GERD Protonix 40 mg p.o. daily Pepcid 20 mg p.o. twice daily F: N/A E: Replete electrolytes as needed N: Heart healthy diet A: Fall precaution, seizure precaution DVT prophylaxis: Eliquis 5 mg p.o. twice daily GI prophylaxis Protonix 40 mg p.o. daily The patient is admitted with an anticipated less than 2 midnight stay for evaluation of syncope. CODE STATUS: Full Discussed with: Patient Anticipated discharge place: Home Attestation I have seen and examined this patient with my resident , discussed the same with the resident/KHUSHI, and agree with the dictator's assessment and plan as written Dr. Stan henson Past Medical History Past Medical History: Atrial Fibrillation, Asthma, GERD/Reflux, Hyperlipidemia, Hypertension, Osteoarthritis (OA), Sleep Apnea/CPAP/BIPAP Additional Past Medical History / Comment(s): uses CPAP History of Any Multi-Drug Resistant Organisms: None Reported Past Surgical History: Section, Cholecystectomy, Orthopedic Surgery, Uterine Ablation Additional Past Surgical History / Comment(s): rt wrist surgery with pin, colonoscopy, R knee sx Past Anesthesia/Blood Transfusion Reactions: Postoperative Nausea & Vomiting ( PONV) Additional Past Anesthesia/Blood Transfusion Reaction / Comment(s): C laustrophobic. no hx blood transfusion Past Psychological History: No Psychological Hx Reported Smoking Status: Never smoker Past Alcohol Use History: None Reported Past Drug Use History: None Reported - Past Family History Father Family Medical History: Cancer Additional Family Medical History / Comment(s): colon cancer Mother Family Medical History: Congestive Heart Failure (CHF), COPD Sister(s) Additional Family Medical History / Comment(s): brain CA Brother(s) Family Medical History: Cancer Additional Family Medical History / Comment(s): Pancreatic CA, at 72 years old. Medications and Allergies Home Medications Medication Instructions Recorded Confirmed Type Celecoxib [CeleBREX] 200 mg PO DAILY 05/28/17 08/25/24 History Montelukast [Singulair] 10 mg PO DAILY 05/28/17 08/25/24 History hydroCHLOROthiazide 25 mg PO DAILY 05/28/17 08/25/24 History Atorvastatin [Lipitor] 10 mg PO DAILY 01/07/22 08/25/24 History Omeprazole 20 mg PO DAILY 01/07/22 08/25/24 History Apixaban [Eliquis] 5 mg PO BID #60 tab 01/08/22 08/25/24 Rx Pregabalin [Lyrica] 100 mg PO BID 04/12/24 08/25/24 History Metoprolol Succinate (ER) [Toprol 50 mg PO DAILY 08/25/24 08/25/24 History Xl] lisinopriL [Zestril] 10 mg PO HS 08/25/24 08/25/24 History Allergies Allergy/AdvReac Type Severity Reaction Status Date / Time No Known Allergies Allergy Verified 08/25/24 19:31 Physical Exam Vitals: Vital Signs Temp Pulse Pulse Pulse Resp BP BP 08/26/24 07:00 97.7 F 83 16 120/79 08/26/24 02:00 97.6 F 51 L 18 125/64 08/25/24 22:16 47 L 18 138/72 08/25/24 20:35 47 L 18 155/75 08/25/24 16:09 54 L 18 140/59 08/25/24 14:44 98.4 F 60 18 154/82 Pulse Ox 08/26/24 07:00 94 L 08/26/24 02:00 96 08/25/24 22:16 99 08/25/24 20:35 99 08/25/24 16:09 99 08/25/24 14:44 96 Intake and Output 08/25/24 08/26/24 08/26/24 22:59 06:59 14:59 Other: # Voids 2 1 Weight 154.221 kg Results CBC & Chem 7: 08/26/24 02:00 08/26/24 02:00 Labs: Abnormal Lab Results - Last 24 Hours (Table) 08/25/24 08/25/24 08/26/24 Range/Units 15:38 15:38 02:00 D-Dimer 0.70 H (<0.60) mg/L FEU BUN 21 H (7-17) mg/dL Glucose 114 H 121 H (74-99) mg/dL Total Protein 6.2 L (6.3-8.2) g/dL Thrombosis Risk Factor Assmnt - Choose All That Apply Each Factor Represents 1 point: Obesity (BMI >25) Each Risk Factor Represents 2 Points: Age 61-74 years Thrombosis Risk Factor Assessment Total Risk Factor Score: 3 Thrombosis Risk Factor Assessment Level: Moderate Risk
[2024-08-26] MEDS: traMADol 50 MG TAB PO PRN (16:28)
[2024-08-26] MEDS: lisinopriL 10 MG TAB PO SCH (19:58)
[2024-08-27 03:06] VITALS: RESP 18
[2024-08-27 08:43] VITALS: BP 135/81; PULSE 131; TEMP 97.9
[2024-08-27 09:54] LABS: Basophils # (A) 0.05 X 10*3/uL (0.00-0.10); Basophils % (A) 0.7 %; Eosinophils % (A) 2.7 %; HCT 39.3 % (37.2-46.3); HGB 13.1 g/dL (12.0-15.0); Lymphocytes # (A) 2.17 X 10*3/uL (0.90-5.00); Lymphocytes % (A) 28.8 %; MCH 30.9 pg (27.0-32.0); MCHC 33.3 g/dL (32.0-37.0); MCV 92.7 FL (80.0-97.0); Mean Platelet Volume 11.7 FL (9.5-12.2); Monocytes # (A) 0.75 X 10*3/uL (0.20-1.00); Monocytes % (A) 9.9 %; NRBC Per 100 WBC 0 X 10*3/uL (0.00-0.01); Neutrophils # (A) 4.34 X 10*3/uL (1.80-7.70); Neutrophils % (A) 57.5 %; Platelet Count 177 X 10*3/uL (140-440); RBC 4.24 X 10*6/uL (4.10-5.20); RDW 13.9 % (11.5-14.5); WBC 7.54 X 10*3/uL (4.50-10.00)
[2024-08-27 10:23] LABS: BUN/Creat Ratio 19.56 Ratio (12.00-20.00); Blood Urea Nitrogen 17.6 mg/dL (9.0-27.0); Calcium 8.8 mg/dL (8.7-10.3); Carbon Dioxide 24.3 mmol/L (21.6-31.8); Chloride 104 mmol/L (96-109); Glucose 114 mg/dL (70-110); Magnesium 1.9 mg/dL (1.5-2.4); Potassium 4.4 mmol/L (3.5-5.5); Sodium 141 mmol/L (135-145)
--- NOTE | 2024-08-27 10:50 | P.DS ---
Providers Date of admission: 08/25/24 19:17 Expected date of discharge: 08/27/24 Attending physician: Bryan Fuentes Consults: 08/25/24 19:15 Consult Physician Urgent Consulting Provider: Davion Lazo Consult Reason/Comments: syncope Do you want consulting provider notified?: Yes Primary care physician: Clint Stiles [facility] Course: Discharge diagnoses; #. Suspected syncopal episode #. Sinus bradycardia Cardiology recommending outpatient 14-day for evidence heart monitor to be picked up [facility] on Wednesday #. Atrial fibrillation, on Eliquis Continue Eliquis 5 mg twice daily Continue metoprolol succinate 50 mg p.o. daily #. Hyperlipidemia Continue atorvastatin 10 mg p.o. daily #. Hypertension Continue with lisinopril 10 mg p.o. at bedtime #. History of asthma Continue with Singulair 10 mg p.o. daily #. Chronic back pain Pregabalin 100 mg p.o. twice daily Acetaminophen tab 650 mg p.o. every 6 HR as needed Tramadol 50 mg p.o. every 6 hours as needed Mobic 7.5 mg p.o. daily #. GERD Protonix 40 mg p.o. daily Pepcid 20 mg p.o. twice daily Hospital course; Patient is a 64-year-old female with atrial fibrillation (on Eliquis) status post ablation x 2, asthma, GERD, hyperlipidemia, hypertension, sleep apnea on CPAP/BiPAP presenting with possible syncopal episode. Patient states as she was trying to get down from her porch, and next thing she knew she woke up on the ground. She denies any head trauma, and states that her shoulder hit a box of [employer] cans. She states her back also hurt after the fall as well. There were no witnesses to this fall. She does not remember any preceding incidents or triggers that may have occurred before falling. Denies any cough or straining preceding the incident, or wearing any tight clothing. She had a previous episode of falling in June 2024 at [facility]. There was a witness at this incident and there was no evidence of any seizing. CT of the back was done and it was negative and was discharged from the ER. Patient denies any history of seizure. Denies any fever, chills, weakness, headache, lightheadedness, confusion, chest pain, shortness of breath, cough, abdominal pain, nausea, vomiting, constipation. EKG independently interpreted displays sinus bradycardia, rate 53 bpm, QTc [address] displays no significant abnormality seen, no acute bleed or mass effect Chest CTA displays no clear evidence of pulmonary embolus or other acute chest process, mild cardiomegaly CXR independently interpreted displays no acute cardiopulmonary process Shoulder x-ray displays no acute osseous pathology Lumbar spine CT displays no lumbar spine fracture, slight anterior listhesis of L4 on L5, disc spaces well-preserved D-dimer 0.70, troponin <0.012 x 3, WBC 8.1, Hgb 12.8, platelets 178, INR 1.0, sodium 139, potassium 4.0, CO2 28, BUN 4, creatinine 0.7, glucose 114. T97.7 F, AL 51, BP 120/79, O2 sat 94% on room air 08/27. Cardiology evaluated the patient, recommended outpatient event monitor. Patient to continue her current dose of Toprol. Outpatient follow-up with PCP and cardiology. May consider outpatient EEG PHYSICAL EXAMINATION: GENERAL: The patient is alert and oriented x3, not in any acute distress. Well developed, well nourished. HEENT: Pupils are round and equally reacting to light. EOMI. No scleral icterus. No conjunctival pallor. Normocephalic, atraumatic. No pharyngeal erythema. No thyromegaly. CARDIOVASCULAR: S1 and S2 present. No murmurs, rubs, or gallops. PULMONARY: Chest is clear to auscultation, no wheezing or crackles. ABDOMEN: Soft, nontender, nondistended, normoactive bowel sounds. No palpable organomegaly. MUSCULOSKELETAL: No joint swelling or deformity. EXTREMITIES: No cyanosis, clubbing, or pedal edema. NEUROLOGICAL: Gross neurological examination did not reveal any focal deficits. SKIN: No rashes. Dictation was produced using [employer] dictation software. please excuse any grammatical, word or spelling errors. Patient Condition at Discharge: Stable Plan - Discharge Summary New Discharge Prescriptions: Continue Celecoxib [CeleBREX] 200 mg PO DAILY Montelukast [Singulair] 10 mg PO DAILY hydroCHLOROthiazide 25 mg PO DAILY Atorvastatin [Lipitor] 10 mg PO DAILY Apixaban [Eliquis] 5 mg PO BID #60 tab Pregabalin [Lyrica] 100 mg PO BID Metoprolol Succinate (ER) [Toprol XL] 50 mg PO DAILY Omeprazole 20 mg PO DAILY lisinopriL [Zestril] 10 mg PO HS Discharge Medication List Celecoxib [CeleBREX] 200 mg PO DAILY 05/28/17 [History] Montelukast [Singulair] 10 mg PO DAILY 05/28/17 [History] hydroCHLOROthiazide 25 mg PO DAILY 05/28/17 [History] Atorvastatin [Lipitor] 10 mg PO DAILY 01/07/22 [History] Omeprazole 20 mg PO DAILY 01/07/22 [History] Apixaban [Eliquis] 5 mg PO BID #60 tab 01/08/22 [Rx] Pregabalin [Lyrica] 100 mg PO BID 04/12/24 [History] Metoprolol Succinate (ER) [Toprol XL] 50 mg PO DAILY 08/25/24 [History] lisinopriL [Zestril] 10 mg PO HS 08/25/24 [History] Follow up Appointment(s)/Referral(s): Clint Stiles MD [Primary Care Provider] - 1-2 days Discharge Disposition: HOME SELF-CARE
== END 2024-08-27 13:15 | disposition home or self-care (01) ==
LOC: SUPCPDRO 14:42 → EC 14:42 → 6NMEDSUR 19:17
PROVIDERS: ADMIT Hospitalist; ATTEND Hospitalist
DX: I48.91 Unspecified atrial fibrillation (principal); E66.01 Morbid (severe) obesity due to excess calories; E78.5 Hyperlipidemia, unspecified; G89.29 Other chronic pain; M54.9 Dorsalgia, unspecified; R00.1 Bradycardia, unspecified; I10 Essential (primary) hypertension; J45.909 Unspecified asthma, uncomplicated; K21.9 Gastro-esophageal reflux disease without esophagitis; G47.30 Sleep apnea, unspecified; M19.90 Unspecified osteoarthritis, unspecified site; Z79.899 Other long term (current) drug therapy; Z91.81 History of falling; Z79.01 Long term (current) use of anticoagulants; Z79.1 Long term (current) use of non-steroidal anti-inflammatories (NSAID); Z80.0 Family history of malignant neoplasm of digestive organs; Z80.8 Family history of malignant neoplasm of other organs or systems; Z82.5 Family history of asthma and other chronic lower respiratory diseases
CPT/HCPCS: 96376; 96361 ×3; 96374; 99285; 36415; 93005; 93306; 85379; 80053 ×2; 80048; 84443; 83735 ×2; 84484 ×2; 85025 ×3; 85610; 85730; 73030; 71046; 72131; 70450; 71275; G0378 ×3; Q9957; J1885 ×2; Q9967

== ENCOUNTER 2024-09-05 12:40 | Day surgery (SDC) | payer MEDICAID ==
[2024-08-31 10:58] VITALS: BMI 58.2
[~2024-09-05 12:40] MED LIST changes: -IOPAMIDOL M200 10 ML VIAL ONE; -methylPREDNISolone ACETATE 40 MG/ML 1 ML VIAL ONE
[2024-09-05 13:41] VITALS: TEMP 96.9
[2024-09-05] MEDS ORDERED: IOPAMIDOL M200 10 ML VIAL ONE (14:30)
[2024-09-05] MEDS ORDERED: methylPREDNISolone ACETATE 80 MG/ML 1 ML VIAL ONE (14:30)
--- NOTE | 2024-09-05 14:36 | P.PCN ---
Date of Procedure: 09/05/24 Procedure(s) Performed: PREOPERATIVE DIAGNOSIS: 1- Lumbar Degenerative Disc Diseases 2-Lumbar spondylosis with Facet arthropathy without myelopathy. 3-lumbar radiculopathy. 4-lumbar spinal stenosis POSTOPERATIVE DIAGNOSIS: 1-lumbar degenerative disc disease. 2-lumbar spondylosis with facet arthropathy without myelopathy. 3-lumbar radiculopathy. 4-Lumbar spinal stenosis. PROCEDURE 1. Lumbar epidural steroid injection under fluoroscopic guidance at the L4-5 level. (Fluoroscopy imaging was available in radiology department) 2. Lumbar epidurogram. ANESTHESIA: Lidocaine 1% 3 and then only. EBL: Minimal PROCEDURE INDICATION: The patient with low back pain and radiculitis symptoms unresponsive to conservative treatment. Fluoroscopy was used to optimize visualization of the needle placement and to maximize safety. PROCEDURE DESCRIPTION / TECHNIQUE: The patient was seen and identified in the preoperative area. Risks, benefits, complications including but not limited to infections ,bleeding ,allergic reaction to the medications ,nerve damage and not complete pain releife , and alternatives were discussed with the patient. The patient agreed to proceed with the procedure and signed the consent, and vital signs were stable. Patient was taken to the OR and time out was completed. The patient was placed in the prone position on procedure table and a pillow was placed under the abdomen to reduce lumbar lordosis. The lumbosacral area was prepped and draped in the usual sterile fashion.ere closely monitored during the procedure. Vital signs was monitered during the entire procedure. Using anterior-posterior fluoroscopy, the L4-5 interlaminar space was identified and the skin over this site was marked and then infiltrated with 1% lidocaine subcutaneously. Subsequently, a 18 gauge 6 inches long Tuohy epidural needle was inserted and advanced toward the epidural space using the ``Loss of resistance technique and guided by AP and lateral fluoroscopy. The correct needle position in the epidural space was verified with the injection of 2 mL of the water soluble contrast dye Isovue 200 contrast and observing an excellent epidurogram with the epidural spread of the dye, after negative aspiration for blood and CSF and in the absence of paresthesias. Again after negative aspiration, a 6 ml mixture containing 80 mg of Depo-medrol ( Preservetive Free ), and 2 ml of preservative free Normal Saline, and 2 ml of preservative free lidocaine 1% solution was injected and a washout of epidurogram was seen. Needle was withdrawn intact, skin was cleansed, and bandages were applied. COMPLICATIONS: None DISPOSITION / PLANS: The patient was placed in a supine position and transferred to the recovery area in a stable condition for observation. There was no evidence of lower extremity motor or sensory deficit after the procedure. Patient was discharged from the recovery room after meeting discharge criteria. Home discharge instructions were given to the patient by the staff. The patient was reexamined prior to discharge. The patient will schedule a follow up in the clinic in 2-4 weeks.
--- NOTE | 2024-09-05 14:47 | FL ---
EXAMINATION TYPE: FL guided pain mgmt statistic DATE OF EXAM: 09/05/2024 FLUOROSCOPY LESI, 3SEC FL TIME, [id number]. One image submitted. [facility], , 09/05/2024 2:45 PM
[2024-09-05 14:50] VITALS: RESP 18
[2024-09-05 15:06] VITALS: BP 128/73; PULSE 48
== END 2024-09-05 15:10 | disposition home or self-care (01) ==
LOC: ORPAIN 12:40
PROVIDERS: ATTEND Specialist
CPT/HCPCS: 62323

== ENCOUNTER → 2024-09-21 | Outpatient (CLI) | payer MEDICAID ==
[2024-09-21 09:50] VITALS: BP 114/55; PULSE 72; RESP 16
--- NOTE | 2024-09-21 14:54 | P.PAINPG ---
PQRS Measure Charge Sheet Comment: HISTORY OF PRESENT ILLNESS: A 64 yr old female presents today w severe and chronic LBP > 1 yr secondary to radiculopathy, spondylosis and facet arthropathy for evaluation s/p HANNA L4-L5 #1. Pt states she experienced >50 % pain relief x 2 wks s/p procedure. Pt states pain level is provoked at 6 /10 in intensity, intermittent, localized in the lower lumbar spine, predominantly axial, achy in character without shooting pain . Pain is provoked by over activity. Pain is alleviated by PT x 6 wks which ended in Jan 2024, physician guided home exercises/ stretches daily since Jan 2024, medications, repositioning and rest . Interventional procedures include HANNA L4-L5 x2 Medications include Lyrica, Celebrex REVIEW OF ORGAN SYSTEMS: CONSTITUTIONAL: No fevers or chills. No recent weight loss. NEUROLOGICAL: + numbness and tingling along the distal extremities. No seizure disorders or headaches. MUSCULOSKELETAL: + pain PSYCHIATRIC: Denies current depression or suicidal thoughts. Physical Examinations : Constitutional : Cooperative , not in acute distress . Neurologic : Cranial nerve II to XII intact. No focal neurological deficits. Psychiatric : alert & oriented x 3. Matching mood & appropriate affect. Judgment & insight intact. Musculoskeletal : Cervical Spine Motor strength in the deltoid and biceps: Normal right side. Normal Left side Motor strength biceps and the wrist extensors: Normal right side . Normal left side Motor strength in the triceps muscle: Normal right side. Normal left side Deep tendon reflexes: Normal at the biceps. Normal at Brachioradialis. Normal at triceps Vertebral body tenderness to deep palpation over Cervical facet loading test: positive bilaterally Spurling test: positive bilaterally Neck distraction test: positive bilaterally Mohan sign: positive bilaterally Lumbar spine Motor strength lower extremities ,thigh and legs 5/5 Right side , 5/5 Left side Deep tendon reflexes : Normal Knee Jerk. Normal Ankle Jerk Vertebral body tenderness Ambriz Test positive Lumbar facet Loading Test: positive Right / positive Left L4-L5/ L5-S1 Range of motion of the lumbar spine Flexion 30 degrees, extension 10 degrees Straight Leg Raise test: Left/ Right p ositive at < 35 degrees Aly test: positive right / positive left. Severe tenderness over the Sacroiliac joint on the Right / Left sides Gaenslen test: positive bilaterally Seated flexion test: positive bilaterally. Sacral spine : Severe tenderness over the Sacroiliac joint: right side / left side Range of motion: Flexion of the lumbar spine <60 degrees Range of motion: Extension of the lumbar spine <20 degrees Gaenslen's Test positive Aly test: positive right side / left side Thigh Thrust Test Sacral Thrust Test Imaging: MRI non contrast of the lumbar spine from 01/03/24 reviewed Assessment/ Plan : Lumbar radiculopathy Recommendation of BL MBB L4-L5/ L5-S1 #1. Risks, benefits of procedure discussed and pt verbalized understanding. Protocol for discontinuation/ continuation of medications manfred procedure discussed. Minimal anesthesia including Fentanyl and Versed if clinically indicated. All questions answered. I have spent greater than 30 minutes on patient care today. Dr Burton was available by phone for the evaluation of this patient. The time was used to review the medical records including relevant urine studies and Prescription history (MAPs), review of the available imaging, evaluation and examination of the patient, coordination of care with the medical staff and if applicable referring physicians, as well as creation of the medical record PQRS Narrative: Smoking Status Never smoker Hx Alcohol Use (MH) No Home Medications: Ambulatory Orders Celecoxib [CeleBREX] 200 mg PO DAILY 05/28/17 Montelukast [Singulair] 10 mg PO DAILY 05/28/17 hydroCHLOROthiazide 25 mg PO DAILY 05/28/17 Atorvastatin [Lipitor] 10 mg PO DAILY 01/07/22 Omeprazole 20 mg PO DAILY 01/07/22 Apixaban [Eliquis] 5 mg PO BID #60 tab 01/08/22 Pregabalin [Lyrica] 100 mg PO BID 04/12/24 Metoprolol Succinate (ER) [Toprol XL] 50 mg PO DAILY 08/25/24 lisinopriL [Zestril] 10 mg PO HS 08/25/24 Controlled Substance Measures - Controlled Substance Measures Is patient prescribed a controlled substance at discharge?: No
== END ==
LOC: PNWHC3 09:32
PROVIDERS: ATTEND Specialist
DX: M54.16 Radiculopathy, lumbar region (principal)
CPT/HCPCS: 99211

== ENCOUNTER → 2024-10-13 | Outpatient (CLI) | payer MEDICAID ==
--- NOTE | 2024-10-13 12:34 | MR ---
EXAMINATION TYPE: MR shoulder LT wo con DATE OF EXAM: 10/13/2024 12:16 PM COMPARISON: Radiograph 08/25/2024 CLINICAL INDICATION: Female, 64 years old with history of M25.512 PAIN IN LEFT SHOULDER, Left shoulde r pain x2 months, Hx of falls TECHNIQUE: Multiplanar, multisequence imaging of the left shoulder is performed without contrast. FINDINGS: Exam is limited as the patient was unable to continue after completion of coronal PD and ax ial water sensitive sequences. Based on these 2 series, there appears to be moderate to severe degenerative change at the AC joint w ith joint space narrowing and marginal spurring along with anterior 1.3 cm ganglion cyst. There is a mild effusion within the subacromial/subdeltoid bursa but no kevin tear defect identified within either supraspinatus or emphysematous tendons. Assessment however is limited. Thickening and inhomogeneous signal of the entire supraspinous tendon. No discrete rotator cuff muscl e atrophy. Additional thickening and inhomogeneous signal of the intracapsular portion of the long biceps tendon . The glenohumeral joint appears intact. No discrete labral tear given sonographic technique. There is some heterogeneous appearance to the superior half of the subscapularis tendon. Physiologic bilateral joint fluid. Clinically normal joint itself appears intact. Heterogeneous red marrow hyperplasia. No Hill-Sachs deformity or os acromiale. IMPRESSION: 1. Limited assessment as the patient could only complete 2 sequences before discontinuing the exam. 2. There appears to be moderate to severe supraspinatus tendinosis. No kevin retracted tear or rotato r cuff muscle atrophy is clearly identified on this limited exam. 3. Moderate to severe AC joint OA. Mild subacromial/subdeltoid bursal effusion could represent a burs itis or could be reactive to subacromial impingement. 4. Additional intracapsular long head biceps tendinosis. Moderate to severe tendinosis superior half of the subscapularis tendon. [facility], , 10/13/2024 12:32 PM
== END | disposition home or self-care (01) ==
LOC: RADMRIMAIN 10:51
PROVIDERS: ATTEND Orthopaedic Surgery
DX: M19.012 Primary osteoarthritis, left shoulder (principal); M67.814 Other specified disorders of tendon, left shoulder

== ENCOUNTER 2024-10-20 08:38 | Day surgery (SDC) | payer MEDICAID ==
[2024-10-17 11:02] VITALS: BMI 49.9
[2024-10-20] MEDS: LACTATED RINGERS 1,000 ML IV SCH (09:20)
[2024-10-20] MEDS: IV FLUID CONTINUATION 1,000 ML IV ONE ×2 (09:20→09:46)
[2024-10-20 09:21] VITALS: RESP 16; TEMP 97.7
[2024-10-20] MEDS ORDERED: ONDANSETRON 4 MG/2 ML VIAL ONE (09:26)
[2024-10-20] MEDS ORDERED: MIDAZOLAM 2 MG/2 ML VIAL ONE (09:26)
[2024-10-20] MEDS ORDERED: fentaNYL (PF) 50 MCG/ML 2 ML AMP ONE (09:26)
[2024-10-20] MEDS ORDERED: ROPIVACAINE 5MG/ML 20ML VIAL ONE (09:26)
--- NOTE | 2024-10-20 09:42 | P.PCN ---
Date of Procedure: 10/20/24 Procedure(s) Performed: PREOPERATIVE DIAGNOSIS : 1- Lumbar spondylosis with Facet Arthropathy with out myelopathy . 2- Lumber degenerative disc disease POSTOPERATIVE DIAGNOSIS: 1- Lumbar spondylosis with Facet Arthropathy without myelopathy . 2- Lumber degenerative disc disease PROCEDURE: Diagnostic bilateral L3 , L4 , and L5 medial branch block under fluoroscopy guidance(fluoroscopy images available in the radiology Department ) ( To target the facet joint between Bilateral L4-5 , and L5-S1 )#1st ANESTHESIA: moderate sedation with intravenous Versed 2 mg and Fentanyl 100 mcg.(Sedation started 09:26 ,end at 09:39) EBL: Minimal COMPLICATION: None PROCEDURE INDICATION: Chronic low back pain secondary to Facet arthropathy unresponsive to conservative treatment. PROCEDURE DESCRIPTION: the patient was seen and identified in the preop holding area , risks and benefits and possible complications of the procedure and alternative were discussed with the patient, and the patient agreed to proceed with the procedure and signed the consent and vital signs monitored during the procedure and fluoroscopy was used to maximize the benefit and accuracy of the needle placement, and sedation was given to decrease patient anxiety, patient was taken to the procedure room and placed in prone position vital signs monitored in the back prepped with chlorhexidine X3 then under strict sterile technique using a right oblique fluoroscopy ,the junction of the transverse process and the superior articulating process of the right L3 , L4 , and L5 vertebra which corresponding to the fluoroscopy image of the eye of the Chucky dog on the block side for the medial branches and subsequently , after local infiltration of skin and subcu tissuies with Ropivacaine 0.5 % , one mL at each level ,then 22-gauge 5 inches long Quincke-type needles , 3 needle was used , each one of them placed at the junction of the base of the transverse process and the superior articular process at the appropriate level, and the needle was advanced until the periosteum contacted, needle placement confirmed with AP oblique and lateral view and after appropriate needle placement confirmed, and after negative aspiration for heme and CSF and there was no paresthesia 1-1/2 mL of Ropivacaine 0.5% , then half mL injected at each level after negative aspiration the needle subsequently removed and the same procedure repeated for the left side at left side at L3 , L4 and L5 levels. At the end of the procedure and the needles removed and a bandage applied after the skin was cleaned the cleaning solution patient taken to recovery room in stable condition and monitors in the recovery room for 20-30 minutes and discharged home in stable condition after discharge criteria met and patient will follow up with the pain clinic in 2-4 weeks
[2024-10-20 09:49] VITALS: PULSE 57
[2024-10-20 10:05] VITALS: BP 108/58
--- NOTE | 2024-10-20 11:07 | FL ---
EXAMINATION TYPE: FL guided pain mgmt statistic DATE OF EXAM: 10/20/2024 9:52 AM COMPARISON: Pre Operative Images if available both CT/MRI or plain film CLINICAL INDICATION: Female, 64 years old with history of FACET BLOCK JULIO; TECHNIQUE: FL guided pain mgmt statistic, multiple fluoroscopic images provided for procedure. Total fluoroscopy time: 36.2 seconds Total submitted images to PACS: 5 DAP: [id number] mGym2 Gycm2 uGym2 cGycm2 or equivalent. FINDINGS: Fluoroscopic images during injection for pain management demonstrate multilevel degeneration changes throughout the spine. No evidence for fracture. No acute process identified. IMPRESSION: 1. No evidence for intraoperative complication. 2. Please see the operative/procedural note for further details. [facility], , 10/20/2024 11:05 AM
== END 2024-10-20 10:20 | disposition home or self-care (01) ==
LOC: ORPAIN 08:38
PROVIDERS: ATTEND Specialist
DX: M47.816 Spondylosis without myelopathy or radiculopathy, lumbar region (principal); G89.29 Other chronic pain; M51.369 Other intervertebral disc degeneration, lumbar region without mention of lumbar back pain or lower extremity pain; Z79.01 Long term (current) use of anticoagulants; Z79.899 Other long term (current) drug therapy
CPT/HCPCS: 64493; 64494 ×2; 99152; J2250; J2405; J3010; J2795

== ENCOUNTER 2024-12-08 05:40 | Day surgery (SDC) | payer MEDICAID ==
--- NOTE | 2024-12-07 11:05 | P.HPOR ---
History of Present Illness H&P Date: 12/07/24 Chief Complaint: Left shoulder pain The patient is a 64-year-old female who presents with left shoulder pain after an injury June 2024. She had a fall. She notes anterior/lateral pain with overhead activity. She is having night symptoms. She has tried medications in addition to therapy without much relief. Review of Systems Per HPI Past Medical History Past Medical History: Atrial Fibrillation, Asthma, GERD/Reflux, Hyperlipidemia, Hypertension, Osteoarthritis (OA), Sleep Apnea/CPAP/BIPAP Additional Past Medical History / Comment(s): uses CPAP History of Any Multi-Drug Resistant Organisms: None Reported Past Surgical History: Section, Cholecystectomy, Orthopedic Surgery, Uterine Ablation Additional Past Surgical History / Comment(s): rt wrist surgery with pin, colonoscopy, R knee sx Past Anesthesia/Blood Transfusion Reactions: Postoperative Nausea & Vomiting (PONV) Additional Past Anesthesia/Blood Transfusion Reaction / Comment(s): Claustrophobic, severe ponv. no hx blood transfusion Smoking Status: Never smoker - Past Family History Father Family Medical History: Cancer Additional Family Medical History / Comment(s): colon cancer Mother Family Medical History: Congestive Heart Failure (CHF), COPD Sister(s) Family Medical History: Cancer, Deep Vein Thrombosis (DVT) Additional Family Medical History / Comment(s): brain CA Brother(s) Family Medical History: Cancer Additional Family Medical History / Comment(s): Pancreatic CA, at 72 years old. Medications and Allergies Home Medications Medication Instructions Recorded Confirmed Type Celecoxib [CeleBREX] 200 mg PO DAILY 05/28/17 12/06/24 History Montelukast [Singulair] 10 mg PO DAILY 05/28/17 12/06/24 History hydroCHLOROthiazide 12.5 mg PO DAILY 05/28/17 12/06/24 History Atorvastatin [Lipitor] 10 mg PO DAILY 01/07/22 12/06/24 History Omeprazole 20 mg PO DAILY 01/07/22 12/06/24 History Apixaban [Eliquis] 5 mg PO BID #60 tab 01/08/22 12/06/24 Rx Pregabalin [Lyrica] 100 mg PO TID 04/12/24 12/06/24 History Metoprolol Succinate (ER) [Toprol 25 mg PO DAILY 08/25/24 12/06/24 History XL] lisinopriL [Zestril] 10 mg PO HS 08/25/24 12/06/24 History Allergies Allergy/AdvReac Type Severity Reaction Status Date / Time No Known Allergies Allergy Verified 12/06/24 12:33 Physical Examination - Shoulder left Tenderness with palpation: anterior, bicipital groove Pain: with abduction, with forward flexion ROM: forward flexion: 140 degrees ROM: internal rotation: mid lumbar ROM: external rotation: 60 degrees Crepitus with motion: Yes Strength: abduction: 4/5 Strength: external rotation: 4/5 Tests: internal impingement tests: positive, anterior instability tests: positive Results The patient is a well-developed well-nourished female approximately 5 foot 5, 325 pounds of endomorphic habitus. HEENT exam is nonfocal, neck is supple. She is tender about the left shoulder anterior subacromial space. Moderate crepitus is noted. Spivey, Neer sign, and Speed test are positive. Her distal neurovascular exam appears intact in the left upper extremity. - Diagnostic results Shoulder MRI: image reviewed (MRI of the left shoulder shows evidence of severe supraspinatus tendinosis along with increased signal involving the proximal biceps.) Assessment and Plan Assessment: Left rotator cuff tear versus strain Left severe supraspinatus tendinosis Left proximal biceps tendinosis Atrial fibrillation Plan: I talked to the patient at length regarding her condition along with treatment options. At this point she is quite symptomatic having pain and weakness despite conservative measures. After a thorough discussion she opts to proceed with surgery. We will plan to proceed with left shoulder arthroscopy with rotator cuff debridement versus repair in addition to possible biceps tenodesis. Risks and benefits were discussed at length in layman's terms. We will likely perform that as an outpatient procedure. We will reinstitute her anticoagulation postoperatively.
[2024-12-08] MEDS: IV FLUID CONTINUATION 1,000 ML IV ONE (06:12)
[2024-12-08] MEDS: SCOPOLAMINE 1 MG/72 HR PATCH TRANSDERM STA (06:51)
[2024-12-08] MEDS: MIDAZOLAM 2 MG/2 ML VIAL IV ONE (06:53)
[2024-12-08] MEDS ORDERED: HYDROmorphone 0.5 MG/0.5 ML SYRINGE IVP PRN (07:00)
[2024-12-08] MEDS: LACTATED RINGERS 1,000 ML IV SCH (07:01)
[2024-12-08] MEDS: DEXAMETHASONE SOD PHOSPHATE 4 MG/ML 1 ML VIAL IV ONE (07:01)
[2024-12-08] MEDS: ONDANSETRON 4 MG/2 ML VIAL IVP ONE (07:01)
[2024-12-08] MEDS ORDERED: SUCCINYLCHOLINE CHLORIDE 200 MG/10 ML VIAL IV ONE (07:24)
[2024-12-08] MEDS ORDERED: PHENYLEPHRINE 10 MG/ML VIAL ONE (07:24)
[2024-12-08] MEDS ORDERED: ACETAMINOPHEN IV (For NPO) 1,000 MG/100 ML VIAL ONE (07:24)
[2024-12-08] MEDS ORDERED: GLYCOPYRROLATE 0.2 MG/ML 2 ML VIAL ONE (07:24)
[2024-12-08] MEDS ORDERED: LIDOCAINE 1% INJ 10MG/ML (20 ML MDV) ONE (07:24)
[2024-12-08] MEDS ORDERED: ROCURONIUM 10 MG/ML (5 ML VIAL) IV ONE (07:24)
[2024-12-08] MEDS ORDERED: NEOSTIGMINE 1 MG/ML 10 ML VIAL ONE (07:24)
[2024-12-08] MEDS ORDERED: ROPIVACAINE 5 MG/ML 30 ML VIAL ONE (07:24)
[2024-12-08] MEDS ORDERED: ePHEDrine 50 MG/ML 1 ML VIAL ONE (07:24)
[2024-12-08] MEDS ORDERED: PROPOFOL 10 MG/ML 20 ML VIAL IV ONE (07:24)
[2024-12-08] MEDS: ceFAZolin 3 GM in SODIUM CHLORIDE 0.9% 100 ML IVPB PRN (07:30)
--- NOTE | 2024-12-08 07:30 | P.ANPRN ---
Procedure Note - Anesthesia - Nerve Block Performed Left Interscalene Single Time Out Performed: Yes ([id number]) Date of Procedure: 12/08/24 Procedure Start Time: 06:53 Procedure Stop Time: 06:57 Location of Patient: PreOp Indication: Acute Post-Operative Pain, Requested by Surgeon Specifically requested for management of pain by : Myles Herrera Sedation Type: Sedate with meaningful contact maintained Preparation: Sterile Prep Position: Supine Catheter: None Needle Types: Pajunk Needle Gauge: 21 Ultrasound used to visualize needle placement: Yes Ultrasound used to observe medication spread: Yes Injectate: 0.5% Ropivacaine (see comment for volume) (30cc) Blood Aspirated: No Pain Paresthesia on Injection Noted: No Resistance on Injection: Normal Image Stored and Saved: Yes Events: Uneventful and Well Tolerated
[2024-12-08] MEDS: EPINEPHrine (PF) 1 ML in SODIUM CHLORIDE 0.9% IRRIGATIO 3,000 ML IRRIGATION ONE ×4 (08:02)
[2024-12-08] MEDS: LACTATED RINGERS 1,000 ML IV ONE (09:12)
--- NOTE | 2024-12-08 09:17 | P.OP ---
Date of Procedure: 12/08/24 Preoperative Diagnosis: Left rotator cuff tear Postoperative Diagnosis: 2 cm left rotator cuff tear, anterior labral tear Procedure(s) Performed: Left shoulder arthroscopic subacromial decompression/anterior labral debridement/rotator cuff repair Implants: Arthrex 4.75 mm swivel lock anchor x 1, 5.5 mm swivel lock anchor x 1 Anesthesia: marielos BOOTH Surgeon: Myles Herrera Section Beamer #1: Sree Cordova Estimated Blood Loss (ml): 10 Pathology: none sent Condition: stable Disposition: PACU Indications for Procedure: The patient is a 64-year-old female who presents with progressive left shoulder pain despite conservative measures. A discussion of the risks and benefits of operative intervention versus continued conservative measures was made with the patient. She opted to proceed with surgery. Operative risks include infection, neurovascular injury, development of blood clots, possible tendon rerupture, possible postoperative stiffness, and possible need for subsequent procedures was discussed. Informed consent was obtained. Operative Findings: As below Description of Procedure: The patient was brought to the operating room, and after induction of general anesthesia was placed in a beachchair position. A preoperative interscalene block was placed for postoperative analgesia. I examined the left shoulder. There was no gross block to passive motion or gross glenohumeral instability. The left upper extremity was prepped and draped in normal fashion. The bony outlines the acromion, distal clavicle, and coracoid process were outlined with a skin marker. The glenohumeral joint was inflated with 50 mL of saline utilizing a spinal needle from posterior approach. A posterior portal was made through a 5 mm skin incision 1 cm medial and inferior to the posterior lateral border time. A blunt trocar was used to easily into the joint. Diagnostic arthroscopy was performed. An anterior portal was made just lateral to the coracoid process entering the joint above the subscapularis tendon. The subscapularis tendon appeared to be intact. There was a partial anterior labral tear with tissue impinging on the anterior glenohumeral joint. This was gerber rided back to stable base with a motorized shaver. The glenohumeral joint appears to be stable. The inferior recess was inspected. The posterior labrum was intact. The biceps and its anchor appear to be intact. On inspection the rotator cuff, a full-thickness tear involving the supraspinatus was noted. There was mild retraction. The arthroscope was then placed into the subacromial space. A lateral portal was made 2 centimeters inferior to the anterior lateral border of the acromion. The rotator cuff was then mobilized easily. This was then easily brought back to the greater tuberosity. The soft tissue on the undersurface of the acromion was debrided with a motorized shaver and electrocautery clearly defining the anterior medial and lateral borders as well as the distal clavicle. An anterior inferior acromioplasty was performed with a motorized flora starting anterolateral, then extending this posteriorly, then extending this medially. I converted to a flat acromion and this was verified in the posterior and lateral viewing portals. The greater tuberosity was lightly decorticating with a shaver down to a bleeding bony surface. An accessory superior lateral portal was made just off the lateral edge of the acromion for anchor placement. A 4.75 mm swivel lock anchor was then placed just off the articular surface with the appropriate starting awl. Good purchase was obtained. The 2 fiber tapes were then passed the rotator cuff with a scorpion suture passer. A fiber link was placed for additional fixation. A lateral 5.5 mm swivel lock anchor was then utilized compressing the footprint. Good purchase was obtained. Final arthroscopic view showed adequate compression at the footprint. The arthroscope was then removed. The portals were closed with simple 3-0 nylon sutures. A sterile dressing was applied in addition to an abductor brace. The patient was then awoken from general anesthesia and transferred to recovery room in good condition. Blood loss was estimated at 10 mL. No complications were incurred. Sponge and needle counts were correct in the case. Clint JIMENEZ assisted and the major components of the case to include arm positioning, anchor placement, and rotator cuff repair.
[2024-12-08 09:29] VITALS: TEMP 96
[2024-12-08] MEDS: ACETAMINOPHEN TAB 500 MG TAB PO STA (10:34)
[2024-12-08 11:02] VITALS: BP 118/68; RESP 20
[2024-12-08 11:06] VITALS: PULSE 59
== END 2024-12-08 11:32 | disposition home or self-care (01) ==
LOC: OR 05:40
PROVIDERS: ATTEND Orthopaedic Surgery
DX: S43.492A Other sprain of left shoulder joint, initial encounter (principal); M75.102 Unspecified rotator cuff tear or rupture of left shoulder, not specified as traumatic; M75.42 Impingement syndrome of left shoulder; E78.5 Hyperlipidemia, unspecified; I48.91 Unspecified atrial fibrillation; J45.909 Unspecified asthma, uncomplicated; K21.9 Gastro-esophageal reflux disease without esophagitis; M19.90 Unspecified osteoarthritis, unspecified site; G47.30 Sleep apnea, unspecified; I10 Essential (primary) hypertension; G89.18 Other acute postprocedural pain; Z79.01 Long term (current) use of anticoagulants; Z79.1 Long term (current) use of non-steroidal anti-inflammatories (NSAID); Z99.89 Dependence on other enabling machines and devices; Z79.899 Other long term (current) drug therapy; Z98.890 Other specified postprocedural states; X58.XXXA Exposure to other specified factors, initial encounter
CPT/HCPCS: 64415; 29827; 29826; C1713 ×3; C1894; J2250; J0330; J1100; J2710; J0690; J2405; J0171; J2003; J2795; J0131; J2704; J2371; J1596

== ENCOUNTER 2025-02-24 07:48 | Observation (INO) | payer BC, MEDICAID ==
--- NOTE | 2025-02-24 07:56 | ED ---
General Adult HPI - General Stated complaint: AFIB Time Seen by Provider: 02/24/25 07:50 Source: patient, RN notes reviewed, old records reviewed - History of Present Illness Initial comments: This is a 64-year-old female who presents to the emergency department with a past medical history significant for atrial fibrillation. Patient states that about 230s morning her heart started to race so she went into [facility] and she was placed on Cardizem and it slowed her heart down nicely. Patient states she also had some uncomfortable chest pressure. Patient denies any recent fever chills or cough or patient has any illness recently. Patient states besides that she has no other complaints today. - Related Data Home Medications Medication Instructions Recorded Confirmed Celecoxib [CeleBREX] 200 mg PO DAILY 05/28/17 12/08/24 Montelukast [Singulair] 10 mg PO DAILY 05/28/17 12/08/24 hydroCHLOROthiazide 12.5 mg PO DAILY 05/28/17 12/08/24 Atorvastatin [Lipitor] 10 mg PO DAILY 01/07/22 12/06/24 Omeprazole 20 mg PO DAILY 01/07/22 12/06/24 Pregabalin [Lyrica] 100 mg PO TID 04/12/24 12/06/24 Metoprolol Succinate (ER) [Toprol 25 mg PO DAILY 08/25/24 12/06/24 XL] lisinopriL [Zestril] 10 mg PO HS 08/25/24 12/08/24 Previous Rx's Medication Instructions Recorded Apixaban [Eliquis] 5 mg PO BID #60 tab 01/08/22 HYDROcodone/APAP 5-325MG [Whiting 1 tab PO Q6HR PRN #28 tab 12/08/24 5-325] Ondansetron [Zofran] 4 mg PO Q8HR PRN #12 tab 12/08/24 Allergies Allergy/AdvReac Type Severity Reaction Status Date / Time No Known Allergies Allergy Verified 02/24/25 08:06 Review of Systems ROS Statement: Those systems with pertinent positive or pertinent negative responses have been documented in the HPI. ROS Other: All systems not noted in ROS Statement are negative. Past Medical History Past Medical History: Atrial Fibrillation, Asthma, GERD/Reflux, Hyperlipidemia, Hypertension, Osteoarthritis (OA), Sleep Apnea/CPAP/BIPAP Additional Past Medical History / Comment(s): uses CPAP History of Any Multi-Drug Resistant Organisms: None Reported Past Surgical History: Section, Cholecystectomy, Orthopedic Surgery, Uterine Ablation Additional Past Surgical History / Comment(s): rt wrist surgery with pin, colonoscopy, R knee sx Past Anesthesia/Blood Transfusion Reactions: Postoperative Nausea & Vomiting (PONV) Additional Past Anesthesia/Blood Transfusion Reaction / Comment(s): Claustrophobic, severe ponv. no hx blood transfusion Smoking Status: Never smoker - Past Family History Father Family Medical History: Cancer Additional Family Medical History / Comment(s): colon cancer Mother Family Medical History: Congestive Heart Failure (CHF), COPD Sister(s) Family Medical History: Cancer, Deep Vein Thrombosis (DVT) Additional Family Medical History / Comment(s): brain CA Brother(s) Family Medical History: Cancer Additional Family Medical History / Comment(s): Pancreatic CA, at 72 years old. General Exam - General Exam Comments Initial Comments: GENERAL: Patient is well-developed and well-nourished. Patient is nontoxic and well- hydrated and is in mild distress. ENT: Neck is soft and supple. No significant lymphadenopathy is noted. Oropharynx is clear. Moist mucous membranes. Neck has full range of motion without eliciting any pain. There is no thyroid enlargement and no masses were felt. EYES: The sclera were anicteric and conjunctiva were pink and moist. Extraocular movements were intact and pupils were equal round and reactive to light. Eyelids were unremarkable. PULMONARY: Unlabored respirations. Good breath sounds bilaterally. No audible rales rhonchi or wheezing was noted. CARDIOVASCULAR: Patient's heart rate is at 90 bpm and irregular ABDOMEN: Soft and nontender with normal bowel sounds. No palpable organomegaly was noted. There is no palpable pulsatile mass. SKIN: Skin is clear with no lesions or rashes and otherwise unremarkable. NEUROLOGIC: Patient is alert and oriented x3. Cranial nerves II through XII are grossly intact. Motor and sensory are also intact. Normal speech, volume and content. Symmetrical smile. MUSCULOSKELETAL: Normal extremities with adequate strength and full range of motion. No lower extremity swelling or edema. No calf tenderness. LYMPHATICS: No significant lymphadenopathy is noted PSYCHIATRIC: Normal psychiatric evaluation. Course Vital Signs 02/24/25 08:00 Temperature 97.1 F L Pulse Rate 92 Respiratory 16 Rate Blood Pressure 113/92 O2 Sat by Pulse 97 Oximetry Medical Decision Making - Medical Decision Making EKG is interpreted by myself. EKG shows atrial fibrillation at 93 bpm QRS 132 QT interval 336 QTc is 387. Patient's EKG shows no ST segment elevation or depression. Was pt. sent in by a medical professional or institution (TONY Izaguirre, PIPE SMOKING MACHINE OPERATOR, urgent care, hospital, or skilled nursing...) When possible be specific @ -No Did you speak to anyone other than the patient for history (EMS, parent, family, police, friend...)? What history was obtained from this source @ -No Did you review nursing and triage notes (agree or disagree)? Why? @ -I reviewed and agree with nursing and triage notes Were old charts reviewed (outside hosp., previous admission, EMS record, old EKG, old radiological studies, urgent care reports/EKG's, skilled nursing records)? Report findings @ -No old charts were reviewed Differential Diagnosis? @ -Differential Palpitations Ventricular arrhythmias, atrial arrhythmias, myocardial infarction, anemia, thyrotoxicosis, electrolyte imbalance, hypokalemia, pulmonary embolism, pulmonary disease, drugs, alcohol, anxiety, stress.... This is not meant to be an all-inclusive list. EKG interpreted by me (3pts min.). @ -As above X-rays interpreted by me (1pt min.). @ -None done CT interpreted by me (1pt min.). @ -None done U/S interpreted by me (1pt. min.). @ -None done What testing was considered but not performed or refused? (CT, X-rays, U/S, labs)? Why? @ -None What meds were considered but not given or refused? Why? @ -None Did you discuss the management of the patient with other professionals (professionals i.e. TONY Izaguirre, PIPE SMOKING MACHINE OPERATOR, lab, RT, psych nurse, social services analyst, push bench operator helper, teacher, court registry officer, case management assistant)? Give summary @ -I spoke with [facility] agreed admit the patient. Was smoking cessation discussed for >3mins.? @ -No Was critical care preformed (if so, how long)? @ -No Were there social determinants of health that impacted care today? How? (Homelessness, low income, unemployed, alcoholism, drug addiction, transportation, low edu. Level, literacy, decrease access to med. care, retirement, rehab)? @ -No Was there de-escalation of care discussed even if they declined (Discuss DNR or withdrawal of care, Hospice)? DNR status @ -No What co-morbidities impacted this encounter? (DM, HTN, Smoking, COPD, CAD, Cancer, CVA, ARF, Chemo, Hep., AIDS, mental health diagnosis, sleep apnea, morbid obesity)? @ -None Was patient admitted / discharged? Hospital course, mention meds given and route, prescriptions, significant lab abnormalities, going to OR and other pertinent info. @ -Patient's heart rate was controlled when she arrived from [facility]. I placed her back on the Cardizem drip because it seemed to be working well pressure was stable. Patient also was given 1 g of magnesium to help stabilize her heart. Undiagnosed new problem with uncertain prognosis? @ -No Drug Therapy requiring intensive monitoring for toxicity (Heparin, Nitro, Insulin, Cardizem)? @ -No Were any procedures done? @ -No Diagnosis/symptom? @ -A-fib with rapid ventricular response Acute, or Chronic, or Acute on Chronic? @ -Acute Uncomplicated (without systemic symptoms) or Complicated (systemic symptoms)? @ -Complicated Side effects of treatment? @ -No Exacerbation, Progression, or Severe Exacerbation? @ -No Poses a threat to life or bodily function? How? (Chest pain, [place], [place], pneumonia, PE, COPD, DKA, ARF, appy, cholecystitis, CVA, Diverticulitis, Homicidal, Suicidal, threat to staff... and all critical care pts) @ -Yes this could lead to poor perfusion and endorgan dysfunction Disposition Clinical Impression: Atrial fibrillation with RVR Disposition: ADMITTED IP TO THIS HOSP Referrals: Clint Stiles MD [Primary Care Provider] - 1-2 days Time of Disposition: 08:13
[2025-02-24] MEDS: MAGNESIUM SULFATE-D5W PMX 1 GM in DEXTROSE/WATER 1 100ML.BAG IVPB ONE (08:13)
[2025-02-24] MEDS ORDERED: NITROGLYCERIN SL TABS 0.4 MG TAB SUBLINGUAL PRN (08:13)
[2025-02-24] MEDS: DILTIAZEM 125 MG in SODIUM CHLORIDE 0.9% 100 ML IV SCH (08:26)
--- NOTE | 2025-02-24 08:59 | XR ---
EXAMINATION TYPE: XR chest 2V DATE OF EXAM: 02/24/2025 8:51 AM COMPARISON: 08/25/2024 CLINICAL INDICATION: Female, 64 years old with history of Difficulty breathing , TECHNIQUE: XR chest 2V view(s) obtained. FINDINGS: The heart size is enlarged. The pulmonary vasculature is normal. The lungs are clear. IMPRESSION: 1. No acute pulmonary process. 2. Mild cardiomegaly [facility], , 02/24/2025 8:57 AM
[2025-02-24] MEDS ORDERED: PREGABALIN 100 MG CAP PO PRN (12:59)
--- NOTE | 2025-02-24 13:05 | P.HPIM ---
History of Present Illness Patient pleasant 64-year-old female came in with complaints of palpitations found to be in heart rate of 130s. Patient was started on Cardizem patient heart rate is in 60s still in atrial fibrillation. Patient was ordered by cardiology they recommended monitoring 1 more night. Patient takes 25 mg of sustained-release metoprolol which will be switched to 50 mg and Cardizem will be discontinued at this time. Patient was on hydrochlorothiazide and lisinopril as well patient has normal ejection fraction in the past. Patient's metoprolol dose was increased and hydrochlorothiazide dose was cut down to half because of syncope secondary to hypotension in the past. REVIEW OF SYSTEMS: All other systems are negative except those mentioned in the HPI PHYSICAL EXAMINATION: GENERAL: The patient is alert and oriented x3, not in any acute distress. Obese. HEENT: Pupils are round and equally reacting to light. EOMI. No scleral icterus. No conjunctival pallor. Normocephalic, atraumatic. No pharyngeal erythema. No thyromegaly. CARDIOVASCULAR: S1 and S2 present. No murmurs, rubs, or gallops. PULMONARY: Chest is clear to auscultation, no wheezing or crackles. ABDOMEN: Soft, nontender, nondistended, normoactive bowel sounds. No palpable organomegaly. MUSCULOSKELETAL: No joint swelling or deformity. EXTREMITIES: No cyanosis, clubbing, or pedal edema. NEUROLOGICAL: Gross neurological examination did not reveal any focal deficits. SKIN: No rashes. Assessment and plan -Atrial fibrillation with rapid unclear rate increase the dose of metoprolol to 50 daily discontinue Cardizem continue with Eliquis - Hypertension patient blood pressure is in the 120 systolic patient can be resumed on lisinopril from tomorrow discontinue hydrochlorothiazide Toprol dose was increased will monitor the blood pressure who will assess the need for lisinopril. Patient had normal ejection fraction in the past - Hyperlipidemia - Peripheral neuropathy - Gastroesophageal reflux disease - Obstructive sleep apnea uses CPAP machine at home DVT prophylaxis: On anticoagulation with Eliquis Past Medical History Past Medical History: Atrial Fibrillation, Asthma, GERD/Reflux, Hyperlipidemia, Hypertension, Osteoarthritis (OA), Sleep Apnea/CPAP/BIPAP Additional Past Medical History / Comment(s): uses CPAP History of Any Multi-Drug Resistant Organisms: None Reported Past Surgical History: Section, Cholecystectomy, Orthopedic Surgery, Uterine Ablation Additional Past Surgical History / Comment(s): rt wrist surgery with pin, colonoscopy, R knee sx Past Anesthesia/Blood Transfusion Reactions: Postoperative Nausea & Vomiting (PONV) Additional Past Anesthesia/Blood Transfusion Reaction / Comment(s): Claustrophobic, severe ponv. no hx blood transfusion Smoking Status: Never smoker - Past Family History Father Family Medical History: Cancer Additional Family Medical History / Comment(s): colon cancer Mother Family Medical History: Congestive Heart Failure (CHF), COPD Sister(s) Family Medical History: Cancer, Deep Vein Thrombosis (DVT) Additional Family Medical History / Comment(s): brain CA Brother(s) Family Medical History: Cancer Additional Family Medical History / Comment(s): Pancreatic CA, at 72 years old. Medications and Allergies Home Medications Medication Instructions Recorded Confirmed Type Celecoxib [CeleBREX] 200 mg PO DAILY 05/28/17 02/24/25 History Montelukast [Singulair] 10 mg PO DAILY 05/28/17 02/24/25 History Atorvastatin [Lipitor] 10 mg PO DAILY 01/07/22 02/24/25 History Omeprazole 20 mg PO DAILY 01/07/22 02/24/25 History Apixaban [Eliquis] 5 mg PO BID #60 tab 01/08/22 02/24/25 Rx Pregabalin [Lyrica] 100 mg PO BID 04/12/24 02/24/25 History lisinopriL [Zestril] 10 mg PO DAILY 08/25/24 02/24/25 History Metoprolol Succinate [Metoprolol 25 mg PO DAILY 02/24/25 02/24/25 History Succinate ER] Pregabalin [Lyrica] 100 mg PO DAILY PRN 02/24/25 02/24/25 History hydroCHLOROthiazide [Hydrodiuril] 12.5 mg PO DAILY 02/24/25 02/24/25 History Allergies Allergy/AdvReac Type Severity Reaction Status Date / Time No Known Allergies Allergy Verified 02/24/25 10:01 Physical Exam Vitals: Vital Signs Temp Pulse Resp BP Pulse Ox 02/24/25 11:33 85 18 122/80 96 02/24/25 10:55 83 18 143/71 96 02/24/25 08:00 97.1 F L 92 16 113/92 97 Intake and Output 02/23/25 02/24/25 02/24/25 22:59 06:59 14:59 Other: Weight 154.221 kg
[2025-02-24] MEDS: APIXABAN 5 MG TAB PO SCH (14:15)
[2025-02-24] MEDS: METOPROLOL SUCCINATE (ER) 50 MG TAB.ER.24H PO SCH (14:16)
--- NOTE | 2025-02-24 14:26 | P.CRDCN ---
History of Present Illness Consult date: 02/24/25 Requesting physician: Dustin Trent Reason for Consult (text): A-fib with RVR Chief complaint: Rapid heartbeat History of present illness: This is a pleasant 64-year-old female patient of Dr. Lazo with past medical history of persistent atrial fibrillation, status post ablation, hypertension, and asthma. Presented to the hospital with complaints of elevated heart rate. She woke from her sleep feeling her heart racing. She follows regularly with Dr. Lazo. She has had some brief episodes of paroxysmal atrial fibrillation but mostly in normal sinus rhythm. She was hospitalized in August with syncope felt to be related to orthostatic hypotension at which time medications were adjusted. Presented this admission with palpitations and heaviness in her chest. Somewhat short of breath. She is currently on Cardizem IV and continues in atrial fibrillation with controlled heart rate at this time.. Diagnostics -EKG: Atrial fibrillation -Chest x-ray: No acute pulmonary process, mild cardiomegaly -Home cardiac medications: Lisinopril 10 mg p.o. daily, hydrochlorothiazide 12.5 mg p.o. daily, metoprolol succinate 25 mg p.o. daily, Lipitor 10 mg p.o. daily, Eliquis 5 mg p.o. twice daily -Prior stress test: Report not available -Echocardiogram: August 2024 revealed normal LV systolic function -Cardiac catheterization: N/A Review Of Systems: At the time of my exam: CONSTITUTIONAL: Denies fever or chills. HEENT: Denies blurred vision, vision changes. CARDIOVASCULAR: Denies chest pain. Denies orthopnea. Denies PND. Denies palpitations, dizziness, or syncope. Complains of edema RESPIRATORY: Denies shortness of breath, wheezing, or cough. Denies hemoptysis. GASTROINTESTINAL: Denies abdominal pain. Denies nausea or vomiting. Denies bleeding. HEMATOLOGIC: Denies bleeding disorders. GENITOURINARY: Denies hematuria. SKIN: Denies puritis. Denies rash. PHYSICAL EXAMINATION: This is a 64-year-old female in no apparent distress at the time of my examination. VITAL SIGNS: Reviewed. HEENT: Head is atraumatic, normocephalic. Pupils are equal, round. Sclerae anicteric. Conjunctivae are clear. Mucous membranes of the mouth are moist. Neck is supple. There is no elevated jugular venous pressure. No carotid bruit is heard. CHEST EXAMINATION: Clear to auscultation bilaterally. No wheezes rales or rhonchi. Respirations even and nonlabored. HEART EXAMINATION: Heart irregular rate and rhythm, positive S1 and S2. No S3. No S4. No clicks, rubs or murmurs. ABDOMEN: Soft, nontender. Bowel sounds are heard. No organomegaly noted. EXTREMITIES: 2+ peripheral pulses with evidence of mild peripheral edema and no calf tenderness noted. NEUROLOGIC EXAMINATION: Patient is awake, alert and oriented x3. Assessment: 1. Persistent atrial fibrillation, prior ablation with bahai of sinus mechanism, back in A-fib 2. Hypertension 3. Obesity 4. Asthma Plan: From cardiology's perspective we will resume metoprolol and stop IV Cardizem. Obtain 2D echo with Doppler study to assess cardiac structure and function. Continue telemetry monitoring. If patient remains in A-fib may require either cardioversion or repeat ablation as an outpatient. Thank you kindly for this consultation. Nurse practitioner note has been reviewed, I agree with documented findings and plan of care. Patient was seen and examined. Past Medical History Past Medical History: Atrial Fibrillation, Asthma, GERD/Reflux, Hyperlipidemia, Hypertension, Osteoarthritis (OA), Sleep Apnea/CPAP/BIPAP Additional Past Medical History / Comment(s): uses CPAP History of Any Multi-Drug Resistant Organisms: None Reported Past Surgical History: Section, Cholecystectomy, Orthopedic Surgery, Uterine Ablation Additional Past Surgical History / Comment(s): rt wrist surgery with pin, colonoscopy, R knee sx Past Anesthesia/Blood Transfusion Reactions: Postoperative Nausea & Vomiting (PONV) Additional Past Anesthesia/Blood Transfusion Reaction / Comment(s): Claustrophobic, severe ponv. no hx blood transfusion Smoking Status: Never smoker - Past Family History Father Family Medical History: Cancer Additional Family Medical History / Comment(s): colon cancer Mother Family Medical History: Congestive Heart Failure (CHF), COPD Sister(s) Family Medical History: Cancer, Deep Vein Thrombosis (DVT) Additional Family Medical History / Comment(s): brain CA Brother(s) Family Medical History: Cancer Additional Family Medical History / Comment(s): Pancreatic CA, at 72 years old. Medications and Allergies Home Medications Medication Instructions Recorded Confirmed Type Celecoxib [CeleBREX] 200 mg PO DAILY 05/28/17 02/24/25 History Montelukast [Singulair] 10 mg PO DAILY 05/28/17 02/24/25 History Atorvastatin [Lipitor] 10 mg PO DAILY 01/07/22 02/24/25 History Omeprazole 20 mg PO DAILY 01/07/22 02/24/25 History Apixaban [Eliquis] 5 mg PO BID #60 tab 01/08/22 02/24/25 Rx Pregabalin [Lyrica] 100 mg PO BID 04/12/24 02/24/25 History lisinopriL [Zestril] 10 mg PO DAILY 08/25/24 02/24/25 History Metoprolol Succinate [Metoprolol 25 mg PO DAILY 02/24/25 02/24/25 History Succinate ER] Pregabalin [Lyrica] 100 mg PO DAILY PRN 02/24/25 02/24/25 History hydroCHLOROthiazide [Hydrodiuril] 12.5 mg PO DAILY 02/24/25 02/24/25 History Allergies Allergy/AdvReac Type Severity Reaction Status Date / Time No Known Allergies Allergy Verified 02/24/25 10:01 Physical Exam Vitals: Vital Signs Temp Pulse Resp BP Pulse Ox 02/24/25 14:16 91 18 119/59 98 02/24/25 11:33 85 18 122/80 96 02/24/25 10:55 83 18 143/71 96 02/24/25 08:00 97.1 F L 92 16 113/92 97 Intake and Output 02/23/25 02/24/25 02/24/25 22:59 06:59 14:59 Other: Weight 154.221 kg Results Cardiac Enzymes 02/24/25 02/24/25 Range/Units 08:26 11:20 Troponin I <0.012 <0.012 (0.000-0.034) ng/mL Current Medications Generic Name Dose Route Start Last Admin Trade Name Freq PRN Reason Stop Dose Admin Apixaban 5 mg 02/24/25 13:30 02/24/25 14:15 Apixaban 5 Mg Tab PO 5 mg BID [facility] Administration Protocol Aspirin 325 mg 02/25/25 09:00 Aspirin 325 Mg Tab PO DAILY [facility] Atorvastatin Calcium 10 mg 02/25/25 09:00 Atorvastatin 10 Mg Tab PO DAILY [facility] Lisinopril 10 mg 02/25/25 09:00 Lisinopril 10 Mg Tab PO DAILY [facility] Meloxicam 7.5 mg 02/25/25 09:00 Meloxicam 7.5 Mg Tab PO DAILY [facility] Metoprolol Succinate 50 mg 02/24/25 13:30 02/24/25 14:16 Metoprolol Succinate (Er) 50 Mg Tab.Er.24h PO 50 mg DAILY [facility] Administration Nitroglycerin 0.4 mg 02/24/25 08:13 Nitroglycerin Sl Tabs 0.4 Mg Tab SUBLINGUAL Q5M PRN Chest Pain Pantoprazole Sodium 40 mg 02/25/25 07:30 Pantoprazole 40 Mg Tablet PO AC-BRKFST [facility] Pregabalin 100 mg 02/24/25 21:00 Pregabalin 100 Mg Cap PO BID [facility] Pregabalin 100 mg 02/24/25 12:59 Pregabalin 100 Mg Cap PO DAILY PRN BACK PAIN Intake and Output 02/23/25 02/24/25 02/24/25 22:59 06:59 14:59 Other: Weight 154.221 kg Patient Weight 02/25/25 06:59 Weight 154.221 kg
[2025-02-24] MEDS: PREGABALIN 100 MG CAP PO SCH (20:28)
[2025-02-25] MEDS: PANTOPRAZOLE 40 MG TABLET PO SCH (06:07)
[2025-02-25] MEDS: ASPIRIN 325 MG TAB PO SCH (08:58)
[2025-02-25] MEDS: MELOXICAM 7.5 MG TAB PO SCH (08:59)
[2025-02-25] MEDS: ATORVASTATIN 10 MG TAB PO SCH (08:59)
[2025-02-25] MEDS: lisinopriL 10 MG TAB PO SCH (08:59)
[2025-02-25] MEDS ORDERED: METOPROLOL SUCCINATE (ER) 25 MG TAB.ER.24H PO SCH (09:00)
[2025-02-25 09:37] LABS: Chol/HDL Ratio 2.72 Ratio; LDL Cholesterol,Calculated 56.7 mg/dL (0.0-131.0)
--- NOTE | 2025-02-25 12:20 | P.PN ---
Subjective Progress Note Date: 02/25/25 This is a pleasant 64-year-old female patient of Dr. Lazo with past medical history of persistent atrial fibrillation, status post ablation, hypertension, and asthma. Presented to the hospital with complaints of elevated heart rate. She woke from her sleep feeling her heart racing. She follows regularly with Dr. Lazo. She has had some brief episodes of paroxysmal atrial fibrillation but mostly in normal sinus rhythm. She was hospitalized in August with syncope felt to be related to orthostatic hypotension at which time medications were adjusted. Presented this admission with palpitations and heaviness in her chest. Somewhat short of breath. She is currently on Cardizem IV and continues in atrial fibrillation with controlled heart rate at this time.. Diagnostics -EKG: Atrial fibrillation -Chest x-ray: No acute pulmonary process, mild cardiomegaly -Home cardiac medications: Lisinopril 10 mg p.o. daily, hydrochlorothiazide 12.5 mg p.o. daily, metoprolol succinate 25 mg p.o. daily, Lipitor 10 mg p.o. daily, Eliquis 5 mg p.o. twice daily -Prior stress test: Report not available -Echocardiogram: August 2024 revealed normal LV systolic function -Cardiac catheterization: N/A 02/25/2025 Patient seen and examined sitting up in a chair. Overall feeling better. Breathing is better. Edema is stable. She remains in A-fib. Heart rate is controlled at rest but as high as 150s with activity, getting up to the bathroom. Currently on metoprolol succinate 50 mg p.o. daily. PHYSICAL EXAMINATION: This is a 64-year-old female in no apparent distress at the time of my examination. VITAL SIGNS: Reviewed. HEENT: Head is atraumatic, normocephalic. Pupils are equal, round. Sclerae anicteric. Conjunctivae are clear. Mucous membranes of the mouth are moist. Neck is supple. There is no elevated jugular venous pressure. No carotid bruit is heard. CHEST EXAMINATION: Clear to auscultation bilaterally. No wheezes rales or rhonchi. Respirations even and nonlabored. HEART EXAMINATION: Heart irregular rate and rhythm, positive S1 and S2. No S3. No S4. No clicks, rubs or murmurs. ABDOMEN: Soft, nontender. Bowel sounds are heard. No organomegaly noted. EXTREMITIES: 2+ peripheral pulses with evidence of mild peripheral edema and no calf tenderness noted. NEUROLOGIC EXAMINATION: Patient is awake, alert and oriented x3. Assessment: 1. Persistent atrial fibrillation, prior ablation with taoist of sinus mechanism, back in A-fib 2. Hypertension 3. Obesity 4. Asthma Plan: From cardiology's perspective we will Obtain 2D echo with Doppler study to assess cardiac structure and function. Increase beta-cody and decrease lisinopril. Continue telemetry monitoring. If patient remains in A-fib may require either cardioversion or repeat ablation as an outpatient. Nurse practitioner note has been reviewed, I agree with documented findings and plan of care. Patient was seen and examined. Objective - Vital Signs Vital signs: Vital Signs Temp 97.7 F 02/25/25 07:00 Pulse 88 02/25/25 07:00 Resp 18 02/25/25 07:00 BP 120/79 02/25/25 07:00 Pulse Ox 97 02/25/25 08:13 FiO2 Intake & Output 02/24/25 02/25/25 02/25/25 18:59 06:59 18:59 Intake Total 540 Balance 540 Weight 154.221 kg Intake: Oral 540 Other: # Voids 2
[2025-02-25] MEDS: METOPROLOL SUCCINATE (ER) 50 MG TAB.ER.24H PO ONE (12:26)
--- NOTE | 2025-02-25 13:03 | P.PN ---
Subjective Patient pleasant 64-year-old female came in with complaints of palpitations found to be in heart rate of 130s. Patient was started on Cardizem patient heart rate is in 60s still in atrial fibrillation. Patient was ordered by cardiology they recommended monitoring 1 more night. Patient takes 25 mg of sustained-release metoprolol which will be switched to 50 mg and Cardizem will be discontinued at this time. Patient was on hydrochlorothiazide and lisinopril as well patient has normal ejection fraction in the past. Patient's metoprolol dose was increased and hydrochlorothiazide dose was cut down to half because of syncope secondary to hypotension in the past. 03/14/2025 Patient is still in atrial fibrillation heart rate fluctuates anywhere between low 80s to high 90s. Cardiology is recommending echocardiogram tomorrow. Text REVIEW OF SYSTEMS: All other systems are negative except those mentioned in the HPI PHYSICAL EXAMINATION: GENERAL: The patient is alert and oriented x3, not in any acute distress. Obese. HEENT: Pupils are round and equally reacting to light. EOMI. No scleral icterus. No conjunctival pallor. Normocephalic, atraumatic. No pharyngeal erythema. No thyromegaly. CARDIOVASCULAR: S1 and S2 present. No murmurs, rubs, or gallops. PULMONARY: Chest is clear to auscultation, no wheezing or crackles. ABDOMEN: Soft, nontender, nondistended, normoactive bowel sounds. No palpable organomegaly. MUSCULOSKELETAL: No joint swelling or deformity. EXTREMITIES: No cyanosis, clubbing, or pedal edema. NEUROLOGICAL: Gross neurological examination did not reveal any focal deficits. SKIN: No rashes. Assessment and plan -Atrial fibrillation with rapid unclear rateon metoprolol to 50 daily off Card izem continue with Eliquis cardiogram tomorrow - Hypertension patient blood pressure is in the 120 systolic patient can be resumed on lisinopril at a lower dose discontinued hydrochlorothiazide Toprol dose was increased will monitor the blood pressure who will assess the need for lisinopril. Patient had normal ejection fraction in the past - Hyperlipidemia - Peripheral neuropathy - Gastroesophageal reflux disease - Obstructive sleep apnea uses CPAP machine at home DVT prophylaxis: On anticoagulation with Eliquis Objective - Vital Signs Vital signs: Vital Signs Temp 97.7 F 02/25/25 07:00 Pulse 88 02/25/25 07:00 Resp 18 02/25/25 07:00 BP 120/79 02/25/25 07:00 Pulse Ox 97 02/25/25 08:13 FiO2 Intake & Output 02/24/25 02/25/25 02/25/25 18:59 06:59 18:59 Intake Total 540 Balance 540 Weight 154.221 kg Intake: Oral 540 Other: # Voids 2
[2025-02-26 07:45] VITALS: BP 108/57; PULSE 53; RESP 18; TEMP 97.5
[2025-02-26] MEDS: lisinopriL 5 MG TAB PO SCH (08:15)
[2025-02-26] MEDS: METOPROLOL SUCCINATE (ER) 100 MG TAB.ER.24H PO SCH (08:15)
--- NOTE | 2025-02-26 14:38 | P.PN ---
Subjective Progress Note Date: 02/26/25 This is a pleasant 64-year-old female patient of Dr. Lazo with past medical history of persistent atrial fibrillation, status post ablation, hypertension, and asthma. Presented to the hospital with complaints of elevated heart rate. She woke from her sleep feeling her heart racing. She follows regularly with Dr. Lazo. She has had some brief episodes of paroxysmal atrial fibrillation but mostly in normal sinus rhythm. She was hospitalized in August with syncope felt to be related to orthostatic hypotension at which time medications were adjusted. Presented this admission with palpitations and heaviness in her chest. Somewhat short of breath. She is currently on Cardizem IV and continues in atrial fibrillation with controlled heart rate at this time.. Diagnostics -EKG: Atrial fibrillation -Chest x-ray: No acute pulmonary process, mild cardiomegaly -Home cardiac medications: Lisinopril 10 mg p.o. daily, hydrochlorothiazide 12.5 mg p.o. daily, metoprolol succinate 25 mg p.o. daily, Lipitor 10 mg p.o. daily, Eliquis 5 mg p.o. twice daily -Prior stress test: Report not available -Echocardiogram: August 2024 revealed normal LV systolic function -Cardiac catheterization: N/A Progress note 02/26/2025 BP 108/57, heart rate 78 bpm Patient is doing well from cardiovascular standpoint at this time. Treatment will atrial fibrillation at this time. Asymptomatic euvolemic. PHYSICAL EXAMINATION: HEENT: Head is atraumatic, normocephalic. Pupils are equal, round. Sclerae anicteric. Conjunctivae are clear. Mucous membranes of the mouth are moist. Neck is supple. There is no elevated jugular venous pressure. No carotid bruit is heard. CHEST EXAMINATION: Clear to auscultation bilaterally. No wheezes rales or rhonchi. Respirations even and nonlabored. HEART EXAMINATION: Heart irregular rate and rhythm, positive S1 and S2. No S3. No S4. No clicks, rubs or murmurs. ABDOMEN: Soft, nontender. Bowel sounds are heard. No organomegaly noted. EXTREMITIES: 2+ peripheral pulses with evidence of mild peripheral edema and no calf tenderness noted. NEUROLOGIC EXAMINATION: Patient is awake, alert and oriented x3. Assessment: 1. Persistent atrial fibrillation, prior ablation with islam of sinus mechanism, back in A-fib 2. Hypertension 3. Obesity 4. Asthma 5. DEL Plan: Continue anticoagulation with Eliquis 5 twice daily Reduce lisinopril to 2.5 mg and increase beta-cody metoprolol succinate to 100 mg daily. Patient is cleared to be discharged from cardiovascular standpoint with recommended outpatient follow-up with Dr. Lazo. Objective - Vital Signs Vital signs: Vital Signs Temp 97.5 F L 02/26/25 07:00 Pulse 53 L 02/26/25 07:00 Resp 18 02/26/25 07:00 BP 108/57 02/26/25 07:00 Pulse Ox 95 02/26/25 07:00 FiO2 Intake & Output 02/25/25 02/26/25 02/26/25 18:59 06:59 18:59 Intake Total 444 Balance 444 Intake: Oral 444 Other: # Voids 1 2 # Bowel Movements 1
--- NOTE | 2025-03-02 23:48 | P.DS ---
Providers Date of admission: 02/24/25 08:13 Attending physician: Bryan Fuentes Consults: 02/24/25 08:13 Consult Physician Urgent Consulting Provider: [facility] Consult Reason/Comments: A-fib with rapid ventricular response Do you want consulting provider notified?: Yes Primary care physician: Clint Stiles Hospital Course: Final Diagnosis Persistent atrial fibrillation status post ablation Hypertension Asthma stable GERD Hypertension Hyperlipidemia Sleep apnea with CPAP Discharge Disposition Stable for DC home with medication changes as mentioned. Hospital Course Patient pleasant 64-year-old female came in with complaints of palpitations found to be in heart rate of 130s. Patient was started on Cardizem patient heart rate is in 60s still in atrial fibrillation. Patient takes 25 mg of sustained-release metoprolol which will be switched to 50 mg and Cardizem will be discontinued at this time. Patient was on hydrochlorothiazide and lisinopril as well patient has normal ejection fraction in the past. Patient's metoprolol dose was increased and hydrochlorothiazide dose was discontinued. Lisinorpil has been cut back. Patient currently in normal sinus rhythm. Patient will be discharged home. Please see medication reconciliation for a list of current medications. Thank you for allowing us to participate in the care of this patient. The impression and plan of care has been dictated by Delilah Lechuga Nurse Practitioner as directed. Dr. Miley MD I have performed a history and physical examination and medical decision making of this patient, discussed the same with the dictator, and agree with the dictators assessment and plan as written, documented as a scribe. Based on total visit time, I have performed more than 50% of this visit. Patient Condition at Discharge: Stable Plan - Discharge Summary Discharge Rx Participant: No New Discharge Prescriptions: New lisinopriL [Zestril] 2.5 mg PO DAILY #30 tab Metoprolol Succinate (ER) [Toprol XL] 100 mg PO DAILY #30 tab Continue Celecoxib [CeleBREX] 200 mg PO DAILY Montelukast [Singulair] 10 mg PO DAILY Atorvastatin [Lipitor] 10 mg PO DAILY Apixaban [Eliquis] 5 mg PO BID #60 tab Pregabalin [Lyrica] 100 mg PO BID Omeprazole 20 mg PO DAILY Pregabalin [Lyrica] 100 mg PO DAILY PRN PRN Reason: BACK PAIN Discontinued Metoprolol Succinate [Metoprolol Succinate ER] 25 mg PO DAILY lisinopriL [Zestril] 10 mg PO DAILY hydroCHLOROthiazide [Hydrodiuril] 12.5 mg PO DAILY Discharge Medication List Celecoxib [CeleBREX] 200 mg PO DAILY 05/28/17 [History] Montelukast [Singulair] 10 mg PO DAILY 05/28/17 [History] Atorvastatin [Lipitor] 10 mg PO DAILY 01/07/22 [History] Omeprazole 20 mg PO DAILY 01/07/22 [History] Apixaban [Eliquis] 5 mg PO BID #60 tab 01/08/22 [Rx] Pregabalin [Lyrica] 100 mg PO BID 04/12/24 [History] Pregabalin [Lyrica] 100 mg PO DAILY PRN 02/24/25 [History] Metoprolol Succinate (ER) [Toprol XL] 100 mg PO DAILY #30 tab 02/26/25 [Rx] lisinopriL [Zestril] 2.5 mg PO DAILY #30 tab 02/26/25 [Rx] Follow up Appointment(s)/Referral(s): Davion Lazo MD [STAFF PHYSICIAN] - 1 Week Clint Stiles MD [Primary Care Provider] - 1-2 days Patient Instructions/Handouts: Chest Pain (DC) Discharge Disposition: HOME SELF-CARE
== END 2025-02-26 13:40 | disposition home or self-care (01) ==
LOC: EC 07:48 → 6NMEDSUR 08:13 → INTOOBSV 08:13 → 6NMEDSUR 10:53
PROVIDERS: ADMIT Hospitalist; ATTEND Hospitalist
DX: I48.19 Other persistent atrial fibrillation (principal); I10 Essential (primary) hypertension; E66.9 Obesity, unspecified; E78.5 Hyperlipidemia, unspecified; G47.33 Obstructive sleep apnea (adult) (pediatric); G62.9 Polyneuropathy, unspecified; J45.909 Unspecified asthma, uncomplicated; K21.9 Gastro-esophageal reflux disease without esophagitis; Z79.01 Long term (current) use of anticoagulants; Z79.1 Long term (current) use of non-steroidal anti-inflammatories (NSAID); Z79.899 Other long term (current) drug therapy
CPT/HCPCS: 96368; 96365; 96366; 99285; 36415; 93005 ×2; 80061; 84484; 71046; G0378 ×3; J3475